=== PATIENT | male | born 1965 | race Caucasian/White ===

== ENCOUNTER 2016-05-16 16:33 | Emergency (ER) | payer OTHER ==
[~2016-05-16 16:33] MED LIST: ACET-1175 PO; ACET650S11 PR; BISA10SU3 PR; CALCTAB7 PO; CHOL100027 PO; CLC100X PO; CLON0.5T3 PO; DIASTAT ACUDIAL PR; ENOX40IN SQ; FBR PO; FLUO40CA8 PO; HYDR-5688 PO; LAMO200T PO; LORA-741 PO; MOML PO; MORP1SOL PO; MULTTAB58 PO; NSS IV.; OMEP20CA59 PO; PBUNK PO; POLY335040 PO; PRNJ PO; SENN-65 PO; SODIUM FLORIDE PO; SORBITOL 70% PO; SRQ/100 PO; SRQ/200 PO; ZONI100C39 PO; [UNRECOGNIZED DRUG - CODE] PO
[2016-05-16 16:36] VITALS: TEMP 36.8
[2016-05-16] MEDS ORDERED: MULT-411 PO (16:59)
[2016-05-16] MEDS ORDERED: POLY1POW2 PO (17:02)
[2016-05-16] MEDS ORDERED: SORB70SO6 PO (17:04)
[2016-05-16] MEDS ORDERED: DOCU100C PO (17:06)
[2016-05-16] MEDS ORDERED: CALC600T9 PO (17:12)
[2016-05-16] MEDS ORDERED: FIBER PO (17:12)
[2016-05-16] MEDS ORDERED: PHEN64.8 PO (17:17)
[2016-05-16] MEDS ORDERED: SENN8.6T15 PO (17:17)
[2016-05-16] MEDS ORDERED: LACO100T PO (17:20)
[2016-05-16] MEDS ORDERED: CHOL1000 PO (17:20)
[2016-05-16] MEDS ORDERED: SKINCRE TOP (17:24)
[2016-05-16] MEDS ORDERED: KETO2SHA TOP (17:24)
[2016-05-16] MEDS ORDERED: DIAZ10GE RE (17:33)
[2016-05-16] MEDS ORDERED: BCTROWC TOP (17:33)
[2016-05-16] MEDS ORDERED: POLY99.0 OPB (17:33)
--- NOTE | 2016-05-16 17:54 | DIAGNOSTIC IMAGING REPORT ---
LEFT SHOULDER 3 VIEWS CLINICAL HISTORY: Fall with left shoulder pain. FINDINGS: 3 portable views of the left shoulder are compared to study dated 05/11/2006. Correlation is made with chest x-ray dated 09/07/2013. The skeletal structures are osteopenic. There is chronic posterior matter deformity through the mid to distal third of the left clavicle. There is also an acute and only minimally distracted fracture seen involving the distal clavicle. No additional fracture is seen. The acromioclavicular joint appears preserved. The glenohumeral articulation is maintained. Overlying soft tissue edema is noted. The imaged left lung parenchyma appears clear. There are healed left-sided rib fractures which were also seen on the 2013 chest x-ray. IMPRESSION: 1. There is an acute and only minimally distracted fracture involving the very distal left clavicle with overlying soft tissue edema. 2. No additional fracture is identified in the shoulder dislocation is seen. 3. Osteopenia with chronic posttraumatic deformity involving the mid to distal third of the clavicle. Electronically signed by: Emmanuel Brewer M.D. 05/16/2016 5:53 PM Dictated Date/Time: 05/16/2016 5:50 PM
--- NOTE | 2016-05-16 18:34 | EMERGENCY ROOM VISIT NOTE ---
History Report prepared by Campbell: Abdias Edwards Under the Supervision of: Dr. Rob Valero M.D. First contact with patient: 16:46 Chief Complaint: SHOULDER PAIN Stated Complaint: 'TENDER' L SHOULDER, SENT BY PCP, History of Present Illness The patient is a 50 year old male who presents to the Emergency Room with complaints of persistent left shoulder pain starting yesterday. The patient rolled and fell out of bed last night. He has a bruise on the left shoulder from the fall. The shoulder was at baseline prior to the fall. He has been favoring the left shoulder since yesterday. The patient did not have any seizure -like activity. His last seizure was 4 days ago. Besides the shoulder pain, the patient has been at baseline otherwise. He has not had any fevers, chills, or any other complaints. HPI was obtained as per caregiver. Source of History: caregiver Onset: yesterday Position: shoulder (left) Timing: other (persistent) Associated Symptoms: No chills, No fevers Review of Systems Due to the patient's baseline medical problems unable to get a full review of his symptoms. 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 Social History Smoking Status: Never Smoker Marital Status: single Housing Status: assisted living Occupation Status: disabled Current/Historical Medications Scheduled Calcium Carbonate-Vitamin D (Calcium + D), 1 TAB PO BID Cholecalciferol (Vitamin D3), 1,000 INTER.UNIT PO BID Clonazepam (Klonopin), 0.25 MG PO HS Docusate Sodium (Stool Softener), 200 MG PO HS Fiber Laxative (Fiber Laxative), 1,000 MG PO BID Fluoxetine Hcl (Prozac), 40 MG PO QAM Ketoconazole (Topical) (Ketoconazole), 1 APPLN TOP 2XWK Lacosamide (Vimpat), 100 MG PO BID Lamotrigine (Lamictal), 400 MG PO BID Lorazepam (Ativan), 0.5 MG PO TID Multiple Vitamin (Daily Richi), 1 TAB PO QAM Omeprazole (Prilosec), 20 MG PO QAM Phenobarbital (Phenobarbital), 64.8 MG PO BID Polyethylene Glycol 3350 (Bulk (Polyethylene Glycol 3350), 17 GM PO DAILY Sennosides-Docusate Sodium (Sennalax-S), 2 TABS PO BID Skin Protectants, Misc. (Hydrocerin), 1 APPLN TOP BID Sorbitol (Laxative) (Sorbitol), 20 ML PO DAILY Zonisamide (Zonegran), 300 MG PO HS Scheduled PRN Diazepam (Anticonvulsant) (Diazepam), 5 MG RE UD PRN for Seizure Mupirocin (Bactroban 2% Oint), 1 APPLN TOP BID PRN for Skin Irritation Polyvinyl Alcohol (Artificial Tears), 1 DROP OPB Q6H PRN for Dry/Red Eye(s) Allergies Coded Allergies: Acyclovir (Verified Allergy, Unknown, 02/04/12) Benztropine (Verified Allergy, Unknown, 02/04/12) Cephalosporins (Verified Allergy, Unknown, CEPHALEXIN, 02/04/12) Erythromycin (Verified Allergy, Unknown, 02/04/12) Neomycin (Verified Allergy, Unknown, unknown, 09/07/13) Physical Exam Vital Signs Date Time Temp Pulse Resp B/P Pulse Ox O2 Delivery O2 Flow Rate FiO2 05/16/16 16:36 36.8 72 20 99/58 97 Room Air Physical Exam General: Chronically ill appearing middle aged male. HEENT: Normal cephalic atraumatic. Pupils are equal round and reactive to light. Extraocular movements are intact. Oropharynx is pink with moist mucous membranes. No swelling of the mouth lips or tongue. Neck: Supple with a midline trachea. No meningeal signs or stiffness, no JVD or bruits. No Stridor. Chest: Clear to auscultation bilaterally. No wheezes or rhonchi. No increased work of breathing. Heart: regular rate and rhythm. Abdomen: Soft nontender, nondistended without rebound guarding or rigidity. Extremities: Left shoulder has a bruise but appears to have full range of motion. No clinical suggestion of a dislocation. 2+ distal pulses of upper extremities. Spine/Back. Non tender to palpation. No CVA tenderness Skin: Good turgor without rashes. Neurologic exam: Baseline normal. Medical Decision & Procedures ER Provider Diagnostic Interpretation: X-ray results as stated below per interpretation by me and the radiologist: LEFT SHOULDER 3 VIEWS CLINICAL HISTORY: Fall with left shoulder pain. FINDINGS: 3 portable views of the left shoulder are compared to study dated 05/11/2006. Correlation is made with chest x-ray dated 09/07/2013. The skeletal structures are osteopenic. There is chronic posterior matter deformity through the mid to distal third of the left clavicle. There is also an acute and only minimally distracted fracture seen involving the distal clavicle. No additional fracture is seen. The acromioclavicular joint appears preserved. The glenohumeral articulation is maintained. Overlying soft tissue edema is noted. The imaged left lung parenchyma appears clear. There are healed left-sided rib fractures which were also seen on the 2013 chest x-ray. IMPRESSION: 1. There is an acute and only minimally distracted fracture involving the very distal left clavicle with overlying soft tissue edema. 2. No additional fracture is identified in the shoulder dislocation is seen. 3. Osteopenia with chronic posttraumatic deformity involving the mid to distal third of the clavicle. Electronically signed by: Emmanuel Brewer M.D. 05/16/2016 5:53 PM Dictated Date/Time: 05/16/2016 5:50 PM ED Course 1646: Past medical records reviewed. The patient was evaluated in room B03B, and a complete history and physical examination were performed. 1818: Upon reevaluation, the patient is resting comfortably. I discussed the results and treatment plan with the patient's caregiver. He verbalized agreement of the treatment plan. The patient was discharged home. Medical Decision Differential diagnosis includes but is not limited to fracture, dislocation, contusion, AC separation. This patient comes in as described above. He suffered mechanical fall he does have a history of seizures but did not have a seizure and he is well except for has a bruise on his shoulder. He's been favoring the other shoulder. I did get an x-ray and he does have a nondisplaced clavicle fracture. I will have them use sling if tolerated and he can use [id number] ibuprofen and/or Tylenol if needed but do not exceed the [id number] recommended dosages, ice intermittently and follow-up with his regular doctor this week for recheck. He may ultimately need to see orthopedist if symptoms do not get better or have he has any further problems. The caregiver was happy with the plan and [facility]. Impression Primary Impression: Fracture of left clavicle Scribe Attestation The scribe's documentation has been prepared under my direction and personally reviewed by me in its entirety. I confirm that the note above accurately reflects all work, treatment, procedures, and medical decision making performed by me. Departure Information Dispostion Being Evaluated By Hospitalist Referrals Soila Morales D.O. (PCP) Patient Instructions My [facility] [address]
[2016-05-16 18:48] VITALS: BP 105/65; PULSE 76; O2SAT 96
== END 2016-05-16 18:35 | disposition home or self-care (01) ==
LOC: C.EDB 16:35
DX: S42.002A Fracture of unspecified part of left clavicle, initial encounter for closed fracture (principal); W06.XXXA Fall from bed, initial encounter; G40.909 Epilepsy, unspecified, not intractable, without status epilepticus; D64.9 Anemia, unspecified; F41.9 Anxiety disorder, unspecified; K21.9 Gastro-esophageal reflux disease without esophagitis; Z85.47 Personal history of malignant neoplasm of testis; E03.9 Hypothyroidism, unspecified; F71 Moderate intellectual disabilities; E55.9 Vitamin D deficiency, unspecified; Z79.899 Other long term (current) drug therapy

== ENCOUNTER 2016-10-25 15:41 | Emergency (ER) | payer OTHER ==
[~2016-10-25 15:41] MED LIST changes: -ACET-1175 PO; -ACET650S11 PR; +BCTROWC TOP; -BISA10SU3 PR; +CALC600T9 PO; -CALCTAB7 PO; +CHOL1000 PO; -CHOL100027 PO; -CLC100X PO; -DIASTAT ACUDIAL PR; +DIAZ10GE RE; +DOCU100C PO; -ENOX40IN SQ; -FBR PO; +FIBER PO; -HYDR-5688 PO; +KETO2SHA TOP; +LACO100T PO; -MOML PO; -MORP1SOL PO; +MULT-411 PO; -MULTTAB58 PO; -NSS IV.; -PBUNK PO; +PHEN64.8 PO; +POLY1POW2 PO; -POLY335040 PO; +POLY99.0 OPB; -PRNJ PO; -SENN-65 PO; +SENN8.6T15 PO; +SKINCRE TOP; -SODIUM FLORIDE PO; +SORB70SO6 PO; -SORBITOL 70% PO; -SRQ/100 PO; -SRQ/200 PO; -[UNRECOGNIZED DRUG - CODE] PO
[2016-10-25 16:02] VITALS: TEMP 36.5
[2016-10-25] MEDS ORDERED: SODIUM CHLORIDE 0.9% 1000ML 1,000 ML IV STA (16:20)
[2016-10-25] MEDS ORDERED: SODIUM CHLORIDE 0.9% 1000ML 500 ML IV STA (16:20)
--- NOTE | 2016-10-25 16:52 | DIAGNOSTIC IMAGING REPORT ---
CHEST ONE VIEW PORTABLE CLINICAL HISTORY: Altered mental status. Weakness. COMPARISON STUDY: Chest radiograph September 10, 2013. FINDINGS: Note is made of S-shaped scoliosis of the thoracolumbar spine. There is no pneumothorax or pleural effusion. There are old bilateral rib fractures. There is no consolidation to suggest pneumonia. Cardiomegaly is unchanged. There is no evidence of pulmonary edema. IMPRESSION: No acute cardiopulmonary findings. No change in appearance of the chest. Electronically signed by: Truong Romo M.D. 10/25/2016 4:51 PM Dictated Date/Time: 10/25/2016 4:48 PM
--- NOTE | 2016-10-25 16:55 | EMERGENCY ROOM VISIT NOTE ---
History Report prepared by Campbell: Abdias Edwards Under the Supervision of: Dr. Emmanuel Teague M.D. First contact with patient: 16:14 Chief Complaint: OTHER COMPLAINT Stated Complaint: TREMORS, BLANK STARES, IN AND OUT OF ALERTNESS History of Present Illness The patient is a 51 year old male who presents to the Emergency Room from [facility] with complaints of an episode of trembling and shakiness occurring about 8 hours ago. The caregivers were getting him ready to go to [facility] today when he became lethargic and started having shakiness of his hands. His head slumped to the side and he started having drooling. The patient was laid down on the bed and he started having a blank stare with his mouth trembling. He did not seem like himself. The patient has a history of seizures with his most recent one occurring 3 days ago. He was at baseline afterwards. His normal seizures involve the entire body. His symptoms today were not similar to his normal symptoms related to his seizures. He is on phenobarbital. His caregiver is unsure of when his phenobarbital level was checked. The patient has had a normal appetite and a normal fluid intake. He did not have any recent falls/head injuries, ill contacts, fevers, cough, or any other complaints. He has a history of MR. HPI is obtained as per caregiver. Source of History: caregiver Onset: about 8 hours ago Position: other (global) Quality: other (trembling, shakiness) Associated Symptoms: No fevers, No cough Review of Systems See HPI for pertinent positives & negatives. A total of 10 systems reviewed and were otherwise negative. As per caregiver. 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 Social History Smoking Status: Never Smoker Marital Status: single Housing Status: assisted living Occupation Status: disabled Current/Historical Medications Scheduled Calcium Carbonate-Vitamin D (Calcium + D), 1 TAB PO BID Calcium Polycarbophil (Fiber-Lax), 1 TAB PO QAM Calcium Polycarbophil (Fiber-Lax), 2 TABS PO DAILY AT 1600 Cholecalciferol (Vitamin D3), 1,000 INTER.UNIT PO BID Clonazepam (Klonopin), 0.25 MG PO HS Docusate Sodium (Stool Softener), 200 MG PO HS Fluoxetine Hcl (Prozac), 40 MG PO QAM Ketoconazole (Topical) (Ketoconazole), 1 APPLN TOP 2XWK Lacosamide (Vimpat), 100 MG PO BID Lamotrigine (Lamictal), 400 MG PO BID Lorazepam (Ativan), 0.5 MG PO TID Multiple Vitamin (Daily Richi), 1 TAB PO QAM Omeprazole (Prilosec), 20 MG PO QAM Phenobarbital (Phenobarbital), 64.8 MG PO BID Polyethylene Glycol 3350 (Bulk (Polyethylene Glycol 3350), 17 GM PO DAILY Sennosides-Docusate Sodium (Sennalax-S), 2 TABS PO BID Skin Protectants, Misc. (Hydrocerin), 1 APPLN TOP BID Sorbitol (Laxative) (Sorbitol), 20 ML PO DAILY Zonisamide (Zonegran), 300 MG PO HS Scheduled PRN Diazepam (Anticonvulsant) (Diazepam), 5 MG RE UD PRN for Seizure Mupirocin (Bactroban 2% Oint), 1 APPLN TOP BID PRN for Skin Irritation Polyvinyl Alcohol (Artificial Tears), 1 DROP OPB Q6H PRN for Dry/Red Eye(s) Allergies Coded Allergies: Acyclovir (Verified Allergy, Unknown, 10/25/16) Benztropine (Verified Allergy, Unknown, 10/25/16) Cephalosporins (Verified Allergy, Unknown, CEPHALEXIN, 10/25/16) Erythromycin (Verified Allergy, Unknown, 10/25/16) Neomycin (Verified Allergy, Unknown, unknown, 10/25/16) Physical Exam Vital Signs Date Time Temp Pulse Resp B/P (MAP) Pulse Ox O2 Delivery O2 Flow Rate FiO2 10/25/16 18:22 54 16 110/57 98 Room Air 10/25/16 17:36 51 10/25/16 17:23 55 20 97/56 99 Room Air 10/25/16 16:02 36.5 60 20 106/51 96 Room Air 10/25/16 15:55 36.5 60 20 106/51 96 Room Air Physical Exam GENERAL: Patient is in no acute distress. HEENT: No acute trauma, normocephalic atraumatic, mucous membranes moist, no nasal congestion, no scleral icterus. Some wax in the ear canals more so on the left, no evidence for otitis media. NECK: No stridor, no adenopathy, no meningismus, trachea is midline. LUNGS: Clear to auscultation bilaterally, no wheeze, no rhonchi, breath sounds equal. HEART: Without murmurs gallops or rubs, regular rate and rhythm. ABDOMEN: Soft, nontender, bowel sounds positive, no hernias, no peritonitis. EXTREMITIES: No cyanosis or edema, full range of motion of all the joints without pain or difficulty, no signs for acute trauma. NEUROLOGIC: MR noted, moving all extremities, awake and alert. SKIN: No rash, no jaundice, no diaphoresis. Medical Decision & Procedures ER Provider Diagnostic Interpretation: X-ray results as stated below per interpretation by me and the radiologist: CHEST ONE VIEW PORTABLE CLINICAL HISTORY: Altered mental status. Weakness. COMPARISON STUDY: Chest radiograph September 10, 2013. FINDINGS: Note is made of S-shaped scoliosis of the thoracolumbar spine. There is no pneumothorax or pleural effusion. There are old bilateral rib fractures. There is no consolidation to suggest pneumonia. Cardiomegaly is unchanged. There is no evidence of pulmonary edema. IMPRESSION: No acute cardiopulmonary findings. No change in appearance of the chest. Electronically signed by: Truong Romo M.D. 10/25/2016 4:51 PM Dictated Date/Time: 10/25/2016 4:[address] results as stated below per my review and radiologist interpretation: CT OF THE HEAD WITHOUT CONTRAST CLINICAL HISTORY: Altered mental status. Weakness. COMPARISON STUDY: Head CT April 28, 2012. CT DOSE: 1074.96 mGy.cm TECHNIQUE: Helical axial images of the head were obtained without IV contrast. Automated exposure control was utilized for the study. FINDINGS: No acute intracranial hemorrhage, midline shift or mass effect is present. Ventricular system is stable. Basilar cisterns are patent. There are no extra-axial collections. This exam is mildly compromised by motion artifact. Encephalomalacia within the anterior left frontal lobe is unchanged. Cerebellar atrophy is again noted. There are no significant calvarial abnormalities. Visualized portions of the sinuses and mastoid air cells are clear. There are no CT findings to suggest acute dural sinus thrombosis or acute territorial infarct. IMPRESSION: No acute intracranial findings. No significant change since previous CT of April 28, 2012. Electronically signed by: Truong Romo M.D. 10/25/2016 5:46 PM Dictated Date/Time: 10/25/2016 5:43 PM Laboratory Results 10/25/16 16:45 Red Blood Count 4.26, Mean Corpuscular Volume 90.8, Mean Corpuscular Hemoglobin 30.3, Mean Corpuscular Hemoglobin Concent 33.3, Mean Platelet Volume 10.9, Neutrophils (%) (Auto) 39.9, Lymphocytes (%) (Auto) 47.7, Monocytes (%) (Auto) 7.9, Eosinophils (%) (Auto) 4.1, Basophils (%) (Auto) 0.4, Neutrophils # (Auto) 1.92, Lymphocytes # (Auto) 2.30, Monocytes # (Auto) 0.38, Eosinophils # (Auto) 0.20, Basophils # (Auto) 0.02 10/25/16 16:45 Test 10/25/16 16:45 10/25/16 16:50 White Blood Count 4.82 K/uL (4.8-10.8) Red Blood Count 4.26 M/uL (4.7-6.1) Hemoglobin 12.9 g/dL (14.0-18.0) Hematocrit 38.7 % (42-52) Mean Corpuscular Volume 90.8 fL (80-100) Mean Corpuscular Hemoglobin 30.3 pg (25-34) Mean Corpuscular Hemoglobin Concent 33.3 g/dl (32-36) Platelet Count 216 K/uL (130-400) Mean Platelet Volume 10.9 fL (7.4-10.4) Neutrophils (%) (Auto) 39.9 % Lymphocytes (%) (Auto) 47.7 % Monocytes (%) (Auto) 7.9 % Eosinophils (%) (Auto) 4.1 % Basophils (%) (Auto) 0.4 % Neutrophils # (Auto) 1.92 K/uL (1.4-6.5) Lymphocytes # (Auto) 2.30 K/uL (1.2-3.4) Monocytes # (Auto) 0.38 K/uL (0.11-0.59) Eosinophils # (Auto) 0.20 K/uL (0-0.5) Basophils # (Auto) 0.02 K/uL (0-0.2) RDW Standard Deviation 43.5 fL (36.4-46.3) RDW Coefficient of Variation 13.1 % (11.5-14.5) Immature Granulocyte % (Auto) 0.0 % Immature Granulocyte # (Auto) 0.00 K/uL (0.00-0.02) Anion Gap 10.0 mmol/L (3-11) Estimated GFR () 126.1 Estimated GFR (Non- 108.8 BUN/Creatinine Ratio 21.0 (10-20) Calcium Level 8.9 mg/dl (8.5-10.1) Total Bilirubin 0.3 mg/dl (0.2-1) Aspartate Amino Transf (AST/SGOT) 14 U/L (15-37) Alanine Aminotransferase (ALT/SGPT) 19 U/L (12-78) Alkaline Phosphatase 166 U/L (45-117) Troponin I < 0.015 ng/ml (0-0.045) Total Protein 6.3 gm/dl (6.4-8.2) Albumin 3.3 gm/dl (3.4-5.0) Globulin 3.0 gm/dl (2.5-4.0) Albumin/Globulin Ratio 1.1 (0.9-2) Thyroid Stimulating Hormone (TSH) 2.450 uIu/ml (0.300-4.500) Chemistry Specimen Hemolysis Phenobarbital Level 48.2 mcg/mL (15.0-40.0) Urine Color DK YELLOW Urine Appearance CLEAR (CLEAR) Urine pH 7.0 (4.5-7.5) Urine Specific [place] 1.023 (1.000-1.030) Urine Protein NEG (NEG) Urine Glucose (UA) NEG (NEG) Urine Ketones NEG (NEG) Urine Occult Blood NEG (NEG) Urine Nitrite NEG (NEG) Urine Bilirubin NEG (NEG) Urine Urobilinogen NEG (NEG) Urine Leukocyte Esterase NEG (NEG) Laboratory results reviewed by me. Medications Administered Medications (Trade) Dose Ordered Sig/Porsha Route Start Time Stop Time Status Last Admin Dose Admin Sodium Chloride 500 ml @ 999 mls/hr Q31M STAT IV 10/25/16 16:20 10/25/16 16:50 DC 10/25/16 16:20 999 MLS/HR Sodium Chloride 1,000 ml @ 200 mls/hr Q5H STAT IV 10/25/16 16:20 10/25/16 18:55 DC 10/25/16 16:20 200 MLS/HR ECG Indication: altered mental status Rate (beats per minute): 55 Rhythm: sinus bradycardia Findings: no acute ischemic change, no ectopy, other (Artifact present) ED Course 1614: The patient was evaluated in room B04B. A complete history and physical exam was performed. 1620: Sodium Chloride 1000 ml @ 200 mls/hr IV, Sodium Chloride 500 ml @ 999 mls/ hr IV 180: I discussed the patient's case with Dr. Mancera, neurologist with [facility]. He recommended holding Phenobarbital dose until tomorrow night. He recommended decreasing his phenobarbital dosing regimen. 1812: Reevaluated the patient. Discussed results and discharge instructions: the patient's caregiver verbalized understanding and agreement. The patient is ready for discharge. Medical Decision Medication Reconciliation: I attest that I have personally reviewed the patient' s current medication list. Blood Pressure Screening: Patient was found to have normal blood pressure on screening and does not require follow-up. Differential diagnosis includes but is not limited to toxic phenobarbital level , intracranial bleed/stroke, dehydration, electrolyte imbalance, UTI, infection , seizure. There is no leukocytosis or concerning anemia. No significant electrolyte abnormality, kidney failure or hepatitis. The patient appears to be in a euthyroid state. EKG shows a sinus bradycardia, no acute ischemia. Cardiac enzyme testing 1 is not consistent with acute cardiac injury. Brain CT shows no acute bleed or mass effect. Chest x-ray does not show pneumonia or CHF. Phenobarbital level was toxic. Urinalysis does not show infection. On exam, the patient was not febrile. He was awake and seemed to be at his mental baseline as per his caregiver The patient was given IV saline, he has done well here in the emergency room. I discussed his case with the on-call neurologist. The patient's phenobarbital dosing will be held until tomorrow night and then his dosing will be decreased to a half tablet in the morning and a full tablet at night. He had been on one full tablet twice a day. The patient will follow with neurology and return here for worsening symptoms. His subtle mental status change is likely from the high phenobarbital level. Consults Time Called: 1804 Consulting Physician: Dr. Mancera, neurologist with [facility] Returned Call: 1808 I discussed the patient's case with Dr. Mancera, neurologist with [facility]. He recommended holding Phenobarbital dose until tomorrow night. He recommended decreasing his phenobarbital dosing regimen. Impression Primary Impression: Change in mental status Additional Impression: Phenobarbital toxicity Scribe Attestation The scribe's documentation has been prepared under my direction and personally reviewed by me in its entirety. I confirm that the note above accurately reflects all work, treatment, procedures, and medical decision making performed by me. Departure Information Dispostion Home / Self-Care Referrals Soila Morales D.O. (PCP) Forms HOME CARE DOCUMENTATION FORM, IMPORTANT VISIT INFORMATION, WORK / SCHOOL INSTRUCTIONS Patient Instructions My [facility] Additional Instructions Hold phenobarbital dosing until evening--give 64.8 mg tab that evening On sunday morning start the new regimen of 1/2 tab in the am and full tab (64.8 mg) in the pm follow with neurology for a recheck return for worsening symptoms Problem Qualifiers
[2016-10-25] MEDS ORDERED: CALC625T8 PO ×2 (17:01)
[2016-10-25 17:10] LABS: BASO % 0.4 %; BASO ABS # 0.02 K/uL (0-0.2); COMPLETE YES; EOS % 4.1 %; HEMATOCRIT 38.7 % (42-52); LYMPH % 47.7 %; MEAN CELL VOLUME 90.8 fL (80-100); MEAN CORPUSCULAR HEMOGLOBIN 30.3 pg (25-34); MEAN CORPUSCULAR HGB CONC 33.3 g/dl (32-36); MEAN PLATELET VOLUME 10.9 fL (7.4-10.4); MONO % 7.9 %; NEUT % 39.9 %; PLATELET COUNT 216 K/uL (130-400); RED BLOOD COUNT 4.26 M/uL (4.7-6.1); WHITE BLOOD COUNT 4.82 K/uL (4.8-10.8)
[2016-10-25 17:12] LABS: URINE APPEARANCE CLEAR (CLEAR); URINE BILIRUBIN NEG (NEG); URINE COLOR DK YELLOW; URINE NITRITE NEG (NEG); URINE SPECIFIC GRAVITY 1.023 (1.000-1.030); UROBILINOGEN NEG (NEG); ZZURINE CULT IF INDIC CATH NO
[2016-10-25 17:13] LABS: MANUAL MICROSCOPIC REQUIRED? NO; REVIEW REQ? NO
[2016-10-25 17:42] LABS: ALB/GLOB RATIO 1.1 (0.9-2); ALKALINE PHOSPHATASE 166 U/L (45-117); ALT/SGPT 19 U/L (12-78); BLOOD UREA NITROGEN 15 mg/dl (7-18); CALCIUM 8.9 mg/dl (8.5-10.1); CARBON DIOXIDE 26 mmol/L (21-32); CHLORIDE 105 mmol/L (98-107); CREATININE 0.72 mg/dl (0.60-1.40); GLUCOSE 82 mg/dl (70-99)
[2016-10-25 17:48] LABS: POTASSIUM 4.3 mmol/L (3.5-5.1); SODIUM 141 mmol/L (136-145)
--- NOTE | 2016-10-25 17:48 | DIAGNOSTIC IMAGING REPORT ---
CT OF THE HEAD WITHOUT CONTRAST CLINICAL HISTORY: Altered mental status. Weakness. COMPARISON STUDY: Head CT April 28, 2012. CT DOSE: 1074.96 mGy.cm TECHNIQUE: Helical axial images of the head were obtained without IV contrast. Automated exposure control was utilized for the study. FINDINGS: No acute intracranial hemorrhage, midline shift or mass effect is present. Ventricular system is stable. Basilar cisterns are patent. There are no extra-axial collections. This exam is mildly compromised by motion artifact. Encephalomalacia within the anterior left frontal lobe is unchanged. Cerebellar atrophy is again noted. There are no significant calvarial abnormalities. Visualized portions of the sinuses and mastoid air cells are clear. There are no CT findings to suggest acute dural sinus thrombosis or acute territorial infarct. IMPRESSION: No acute intracranial findings. No significant change since previous CT of April 28, 2012. Electronically signed by: Truong Romo M.D. 10/25/2016 5:46 PM Dictated Date/Time: 10/25/2016 5:43 PM
[2016-10-25 17:56] LABS: AST/SGOT 14 U/L (15-37)
[2016-10-25 18:22] VITALS: BP 110/57; PULSE 54; O2SAT 98
== END 2016-10-25 18:34 | disposition home or self-care (01) ==
LOC: C.EDB 15:45
DX: R41.82 Altered mental status, unspecified (principal); T42.3X1A Poisoning by barbiturates, accidental (unintentional), initial encounter; X58.XXXA Exposure to other specified factors, initial encounter; F71 Moderate intellectual disabilities; D64.9 Anemia, unspecified; F41.9 Anxiety disorder, unspecified; G80.9 Cerebral palsy, unspecified; K21.9 Gastro-esophageal reflux disease without esophagitis; E03.9 Hypothyroidism, unspecified; R56.9 Unspecified convulsions; E55.9 Vitamin D deficiency, unspecified; Z79.899 Other long term (current) drug therapy

== ENCOUNTER 2017-04-03 14:41 | Emergency (ER) | payer OTHER ==
[~2017-04-03 14:41] MED LIST changes: +CALC625T8 PO; -FIBER PO; +SENN1TAB86 PO; -SENN8.6T15 PO
[2017-04-03 14:44] VITALS: TEMP 36.9
[2017-04-03 15:03] VITALS: O2SAT 97
--- NOTE | 2017-04-03 15:10 | EMERGENCY ROOM VISIT NOTE ---
History Report prepared by Campbell: Gurinder Perdue Under the Supervision of: Dr. Rob Valero M.D. First contact with patient: 14:58 Chief Complaint: SEIZURE Stated Complaint: INCREASED SEIZURE ACTIVITY History of Present Illness The patient is a 51 year old male who presents to the Emergency Room with increased seizure activity that began about two weeks ago. 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 He has a past medical history of a seizure disorder. A couple weeks ago, the patient began to have increased seizure activity. However, he has been having one or two seizures a day for the past couple of days. He is currently on Phenobarbital, Vimpat, and Lamictal. His Vimpat was increased recently, but his seizures still persist. His seizures last about a minute. When he has a seizure, he becomes very stiff and shakes globally. Afterward, he becomes very lethargic. The patient's Neurologist, Dr. Mancera, wanted him to be evaluated at the ER to rule out possible infectious sources. They deny at trauma, injury, fevers, vomiting, diarrhea, or any other abnormal symptoms. Source of History: other ([place]) Onset: about two weeks ago Position: other (Global) Symptom Intensity: Multiple Quality: other (Seizures) Timing: intermittent Associated Symptoms: No fevers, No vomiting, No diarrhea Note: After he has a seizure, he becomes very lethargic. They deny any trauma or injury. Review of Systems See HPI for pertinent positives & negatives. A total of 10 systems reviewed and were otherwise negative. 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 Nurse's notes were reviewed and I agree with. Family History Patient reports no known family medical history. Social History Smoking Status: Never Smoker Alcohol Use: none Drug Use: none Marital Status: single Housing Status: assisted living Occupation Status: disabled Current/Historical Medications Scheduled Calcium Carbonate-Vitamin D (Calcium + D), 1 TAB PO BID Calcium Polycarbophil (Fiber-Lax), 1 TAB PO QAM Calcium Polycarbophil (Fiber-Lax), 2 TABS PO DAILY AT 1600 Cholecalciferol (Vitamin D3), 1,000 INTER.UNIT PO BID Clonazepam (Klonopin), 0.25 MG PO HS Docusate Sodium (Stool Softener), 200 MG PO HS Fluoxetine Hcl (Prozac), 40 MG PO QAM Fluticasone Propionate (Nasal) (Allergy Nasal [place] 24 Ho), 2 SPRAYS NA DAILY Lacosamide (Vimpat), 100 MG PO BID Lacosamide (Vimpat), 50 MG PO BID Lamotrigine (Lamictal), 400 MG PO BID Lorazepam (Ativan), 0.5 MG PO TID Multiple Vitamin (Daily Richi), 1 TAB PO QAM Omeprazole (Prilosec), 20 MG PO QAM Phenobarbital (Phenobarbital), 64.8 MG PO BID Polyethylene Glycol 3350 (Bulk (Polyethylene Glycol 3350), 17 GM PO DAILY Sennosides-Docusate Sodium (Sennalax-S), 2 TABS PO BID Sorbitol (Laxative) (Sorbitol), 20 ML PO DAILY Zonisamide (Zonegran), 300 MG PO HS Allergies Coded Allergies: Acyclovir (Verified Allergy, Unknown, 04/03/17) Benztropine (Verified Allergy, Unknown, 04/03/17) Cephalosporins (Verified Allergy, Unknown, CEPHALEXIN, 04/03/17) Erythromycin (Verified Allergy, Unknown, 04/03/17) Neomycin (Verified Allergy, Unknown, unknown, 04/03/17) Physical Exam Vital Signs Date Time Temp Pulse Resp B/P (MAP) Pulse Ox O2 Delivery O2 Flow Rate FiO2 04/03/17 16:30 51 04/03/17 16:30 51 94/46 96 Room Air 04/03/17 16:00 59 17 98/47 97 Room Air 04/03/17 15:33 65 13 101/52 96 Room Air 04/03/17 15:06 75 15 94/38 95 Room Air 04/03/17 15:03 97 Room Air 04/03/17 14:44 36.9 71 20 95/47 96 Room Air Physical Exam General: Non-ill appearing middle-aged male in no acute distress. The patient's mental status is at baseline per medical records supervisor and past history. His eyes are open and follows commands. HEENT: Normal cephalic atraumatic. Pupils are equal round and reactive to light. Extraocular movements are intact. Oropharynx is pink with moist mucous membranes. No swelling of the mouth lips or tongue. Neck: Supple with a midline trachea. No meningeal signs or stiffness, no JVD or bruits. No Stridor. Chest: Clear to auscultation bilaterally. No wheezes or rhonchi. No increased work of breathing. Heart: regular rate and rhythm. Abdomen: Soft nontender, nondistended without rebound guarding or rigidity. Extremities: No cyanosis clubbing or edema. No calf tenderness or assymetry Spine/Back. Non tender to palpation. No CVA tenderness Skin: Good turgor without rashes. Neurologic exam: Baseline weakness of the legs bilaterally. Otherwise nonfocal neurological exam. Medical Decision & Procedures ER Provider Diagnostic Interpretation: Radiology results as stated below per my review and radiologist interpretation: CHEST ONE VIEW PORTABLE CLINICAL HISTORY: 51 years-old Male presenting with CHEST PAIN. TECHNIQUE: Portable semiupright AP view of the chest was obtained. COMPARISON: 10/25/2016. FINDINGS: Cardiac silhouette top normal in size. Lungs and pleural spaces clear. Scoliotic curvature of the thoracic spine. Deformity of posterior right fourth rib may suggest prior fracture. Similar deformity noted on the left. Upper abdomen normal. IMPRESSION: 1. No acute cardiopulmonary disease. Electronically signed by: Shane Mcdaniel M.D. 04/03/2017 4:06 PM Dictated Date/Time: 04/03/2017 4:05 PM Laboratory Results 04/03/17 15:29 Red Blood Count 4.32, Mean Corpuscular Volume 93.5, Mean Corpuscular Hemoglobin 31.7, Mean Corpuscular Hemoglobin Concent 33.9, Mean Platelet Volume 10.5, Neutrophils (%) (Auto) 50.3, Lymphocytes (%) (Auto) 37.8, Monocytes (%) (Auto) 7.5, Eosinophils (%) (Auto) 3.6, Basophils (%) (Auto) 0.5, Neutrophils # (Auto) 1.94, Lymphocytes # (Auto) 1.46, Monocytes # (Auto) 0.29, Eosinophils # (Auto) 0.14, Basophils # (Auto) 0.02 04/03/17 15:29 Test 04/03/17 15:29 White Blood Count 3.86 K/uL (4.8-10.8) Red Blood Count 4.32 M/uL (4.7-6.1) Hemoglobin 13.7 g/dL (14.0-18.0) Hematocrit 40.4 % (42-52) Mean Corpuscular Volume 93.5 fL (80-100) Mean Corpuscular Hemoglobin 31.7 pg (25-34) Mean Corpuscular Hemoglobin Concent 33.9 g/dl (32-36) Platelet Count 195 K/uL (130-400) Mean Platelet Volume 10.5 fL (7.4-10.4) Neutrophils (%) (Auto) 50.3 % Lymphocytes (%) (Auto) 37.8 % Monocytes (%) (Auto) 7.5 % Eosinophils (%) (Auto) 3.6 % Basophils (%) (Auto) 0.5 % Neutrophils # (Auto) 1.94 K/uL (1.4-6.5) Lymphocytes # (Auto) 1.46 K/uL (1.2-3.4) Monocytes # (Auto) 0.29 K/uL (0.11-0.59) Eosinophils # (Auto) 0.14 K/uL (0-0.5) Basophils # (Auto) 0.02 K/uL (0-0.2) RDW Standard Deviation 45.0 fL (36.4-46.3) RDW Coefficient of Variation 13.1 % (11.5-14.5) Immature Granulocyte % (Auto) 0.3 % Immature Granulocyte # (Auto) 0.01 K/uL (0.00-0.02) Anion Gap 3.0 mmol/L (3-11) Estimated GFR () 126.1 Estimated GFR (Non- 108.8 BUN/Creatinine Ratio 21.0 (10-20) Calcium Level 8.8 mg/dl (8.5-10.1) Total Bilirubin 0.2 mg/dl (0.2-1) Direct Bilirubin < 0.1 mg/dl (0-0.2) Aspartate Amino Transf (AST/SGOT) 11 U/L (15-37) Alanine Aminotransferase (ALT/SGPT) 23 U/L (12-78) Alkaline Phosphatase 129 U/L (45-117) Total Protein 6.6 gm/dl (6.4-8.2) Albumin 3.4 gm/dl (3.4-5.0) Lipase 174 U/L (73-393) Phenobarbital Level 29.4 mcg/mL (15.0-40.0) Laboratory studies as stated above per my review. ECG Indication: other (Seizure) Rate (beats per minute): 73 Rhythm: normal sinus Findings: no acute ischemic change, no ectopy, other (poor baseline) Comparison ECG Date: October 25, 2016 Change: no significant change ED Course 1458: Past medical records reviewed. The patient was evaluated in room A9, and a complete history and physical examination were performed. 1633: Upon reevaluation, the patient is sleeping comfortably. I am waiting to speak with Dr. Mancera of Neurology. 1640: I spoke with Dr. Mancera at this time. He agrees with discharge. 1702: Upon reevaluation, the patient is resting. I discussed the results and treatment plan with his medical records supervisor. She verbalized agreement of the treatment plan. The patient was discharged home. Medical Decision Differentials include, but are not limited to; seizure, infection, and electrolyte or metabolic abnormality. This patient comes in as described above. He was placed in room A9. Here for treatment and evaluation of increasing seizures. I do know him well from multiple previous visits. He does have increase all frequent seizures although it got more frequent lately. They recently increased his Vimpat from 100mg twice a day to 150 mg 2 times a day. He has been acting at his normal baseline otherwise. There's been no trauma or vomiting. He has been eating and there has okay is no other focal complaints. IV access established was placed in seizure precautions and multiple blood testing was obtained. He was reassessed frequently. He remained stable and no seizure-like activity he has no fever elevation of white count or any source to suggest infection. Chest x-ray is unremarkable. He has no acute electrolyte or metabolic abnormalities. His phenobarbital level is therapeutic. I did discuss the case with Dr. Mancera and he feels he can go home. They can continue to follow him on outpatient basis in they can further increase the Vimpat if this pattern continues. I encouraged the patient follow-up with his regular doctor or neurologist Medication Reconcilliation Current Medication List: was personally reviewed by me Blood Pressure Screening Patient's blood pressure: Low blood pressure Consults Time Called: 1633 Consulting Physician: Dr. Mancera - Neurology Returned Call: [phone] We discussed the patient's case. He agrees with discharge. Impression Primary Impression: Seizure Scribe Attestation The scribe's documentation has been prepared under my direction and personally reviewed by me in its entirety. I confirm that the note above accurately reflects all work, treatment, procedures, and medical decision making performed by me. Departure Information Dispostion Home / Self-Care Referrals Suleiman Mancera M.D. (MEDICINE) Forms HOME CARE DOCUMENTATION FORM, IMPORTANT VISIT INFORMATION Patient Instructions My [facility] Additional Instructions Rest. Continue current medications Follow-up with your doctor or neurologist this week for recheck Return if fever, worsening symptoms, injuries, worsening of seizures, any new problems or concerns
[2017-04-03] MEDS ORDERED: FLUT50SP45 (15:11)
[2017-04-03] MEDS ORDERED: LACO50TA PO (15:11)
[2017-04-03 15:45] LABS: BASO % 0.5 %; BASO ABS # 0.02 K/uL (0-0.2); COMPLETE YES; EOS % 3.6 %; HEMATOCRIT 40.4 % (42-52); IG% 0.3 %; LYMPH % 37.8 %; LYMPH ABS # 1.46 K/uL (1.2-3.4); MEAN CELL VOLUME 93.5 fL (80-100); MEAN CORPUSCULAR HEMOGLOBIN 31.7 pg (25-34); MEAN CORPUSCULAR HGB CONC 33.9 g/dl (32-36); MEAN PLATELET VOLUME 10.5 fL (7.4-10.4); MONO % 7.5 %; NEUT % 50.3 %; PLATELET COUNT 195 K/uL (130-400); RED BLOOD COUNT 4.32 M/uL (4.7-6.1); WHITE BLOOD COUNT 3.86 K/uL (4.8-10.8)
--- NOTE | 2017-04-03 16:08 | DIAGNOSTIC IMAGING REPORT ---
CHEST ONE VIEW PORTABLE CLINICAL HISTORY: 51 years-old Male presenting with CHEST PAIN. TECHNIQUE: Portable semiupright AP view of the chest was obtained. COMPARISON: 10/25/2016. FINDINGS: Cardiac silhouette top normal in size. Lungs and pleural spaces clear. Scoliotic curvature of the thoracic spine. Deformity of posterior right fourth rib may suggest prior fracture. Similar deformity noted on the left. Upper abdomen normal. IMPRESSION: 1. No acute cardiopulmonary disease. Electronically signed by: Shane Mcdaniel M.D. 04/03/2017 4:06 PM Dictated Date/Time: 04/03/2017 4:05 PM
[2017-04-03 16:09] LABS: BLOOD UREA NITROGEN 15 mg/dl (7-18); CALCIUM 8.8 mg/dl (8.5-10.1); CARBON DIOXIDE 28 mmol/L (21-32); CHLORIDE 110 mmol/L (98-107); CREATININE 0.72 mg/dl (0.60-1.40); GLUCOSE 72 mg/dl (70-99); POTASSIUM 3.8 mmol/L (3.5-5.1); SODIUM 141 mmol/L (136-145)
[2017-04-03 16:12] LABS: ALKALINE PHOSPHATASE 129 U/L (45-117); ALT/SGPT 23 U/L (12-78); AST/SGOT 11 U/L (15-37)
[2017-04-03 18:01] VITALS: BP 93/56; PULSE 61; O2SAT 97
== END 2017-04-03 18:00 | disposition home or self-care (01) ==
LOC: C.EDB 14:42 → C.EDA 18:00
DX: G40.909 Epilepsy, unspecified, not intractable, without status epilepticus (principal); G80.9 Cerebral palsy, unspecified; K21.9 Gastro-esophageal reflux disease without esophagitis; Z85.47 Personal history of malignant neoplasm of testis; F73 Profound intellectual disabilities; E55.9 Vitamin D deficiency, unspecified; Z79.899 Other long term (current) drug therapy

== ENCOUNTER 2017-05-06 03:35 | Inpatient (IN) | payer OTHER ==
[~2017-05-06] VITALS: Ht 172.7 cm; Wt 64.2 kg
[~2017-05-06 03:35] MED LIST changes: -BCTROWC TOP; -DIAZ10GE RE; +FLUT50SP45; -KETO2SHA TOP; +LACO50TA PO; -POLY99.0 OPB; -SKINCRE TOP
[2017-05-06] MEDS ORDERED: SODIUM CHLORIDE 0.9% 1000ML 1,000 ML IV STA (03:41)
[2017-05-06] MEDS ORDERED: LORAZEPAM 2 MG/ML 1 ML VIAL IV STA (04:10)
[2017-05-06 04:22] LABS: BASO % 0.2 %; BASO ABS # 0.01 K/uL (0-0.2); EOS % 0.2 %; EOS ABS # 0.01 K/uL (0-0.5); HEMATOCRIT 41.1 % (42-52); HEMOGLOBIN 13.4 g/dL (14.0-18.0); IG# 0.01 K/uL (0.00-0.02); LYMPH % 13.4 %; LYMPH ABS # 0.75 K/uL (1.2-3.4); MEAN CORPUSCULAR HEMOGLOBIN 30.3 pg (25-34); MEAN CORPUSCULAR HGB CONC 32.6 g/dl (32-36); MEAN PLATELET VOLUME 11.2 fL (7.4-10.4); MONO % 13.1 %; MONO ABS # 0.73 K/uL (0.11-0.59); NEUT % 72.9 %; NEUT ABS # 4.08 K/uL (1.4-6.5); PLATELET COUNT 174 K/uL (130-400); RED CELL DISTRIBUTION WIDTH SD 44.4 fL (36.4-46.3); WHITE BLOOD COUNT 5.59 K/uL (4.8-10.8)
[2017-05-06] MEDS ORDERED: MULT-411 PO (04:26)
[2017-05-06] MEDS ORDERED: FIBER PO ×2 (04:31)
[2017-05-06 04:33] LABS: PTT PATIENT 27.6 SECONDS (21.0-31.0)
[2017-05-06] MEDS ORDERED: PHENOBARBITAL 32.4 MG PO (04:35)
[2017-05-06 04:39] LABS: ALBUMIN 3.6 gm/dl (3.4-5.0); CREATININE 0.84 mg/dl (0.60-1.40); POTASSIUM 3.5 mmol/L (3.5-5.1)
[2017-05-06] MEDS ORDERED: DIAZEPAM RE (04:40)
[2017-05-06 04:41] LABS: TOTAL PROTEIN 6.7 gm/dl (6.4-8.2)
[2017-05-06] MEDS ORDERED: BCTCR/30 EXT (04:43)
[2017-05-06] MEDS ORDERED: SKIN120C EXT (04:44)
[2017-05-06] MEDS ORDERED: KETO2SHA TOP (04:45)
--- NOTE | 2017-05-06 04:50 | EMERGENCY ROOM VISIT NOTE ---
ED Visit Note First contact with patient: 03:41 I saw this patient in conjunction with Jenniffer Calderon PA-C. I agree with her decision-making and treatment plan.
[2017-05-06 05:19] LABS: INFLUENZA B ANTIGEN Neg for Influ B (NEG)
[2017-05-06] MEDS ORDERED: POTASSIUM CHLORIDE 10 MEQ TABCR PO STA (05:41)
[2017-05-06] MEDS ORDERED: LACOSAMIDE 50 MG TAB PO SCH (05:45)
[2017-05-06] MEDS ORDERED: LORAZEPAM INJ 1 MG in SYRINGE 0.5 ML IV PRN (05:45)
[2017-05-06] MEDS ORDERED: ACETAMINOPHEN 325 MG TAB PO PRN (05:45)
[2017-05-06] MEDS ORDERED: LACOSAMIDE 50 MG TAB PO STA (05:58)
--- NOTE | 2017-05-06 06:04 | EMERGENCY ROOM VISIT NOTE ---
History First contact with patient: 03:41 Chief Complaint: SEIZURE Stated Complaint: SEIZURE X6; FEVER; URINARY Nursing Triage Summary: Pt has Hx of seizures, usually 1 per week. He had 6 in the past 24 hours, and one for EMS en route. Pt is normally non-verbal. Staff report foul-smelling urine. Last seizure for staff at 0100. Had fever at the home this afternoon and had Tylenol 650 mg at 1730 and 1930. History of Present Illness The patient is a 51 year old male who presents to the Emergency Room with complaints of multiple seizures this past day. Patient has a history of seizures and follows at Dr. Mancera who currently takes phenobarbital, Vimpat and Lamictal. And has normally a seizure to a week. Today the patient had 6 seizures and another one in route with EMS. Caregivers noticed a fever today. They gave Tylenol today. Caregiver also noticed that the patient had foul- smelling urine 2 days ago. They notified the doctor but no orders were placed for urinalysis. Caregiver denies cough, vomiting, diarrhea, rash. They state that he has been eating and drinking less today. Caregiver also states after he has a seizure he can be lethargic and postictal for a few hours. Caregiver states the patient is currently at his baseline. 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 Social History Smoking Status: Never Smoker Alcohol Use: none Drug Use: none Marital Status: single Housing Status: assisted living Occupation Status: disabled Current/Historical Medications Scheduled Calcium Carbonate-Vitamin D (Calcium + D), 2 TAB PO BID Calcium Polycarbophil (Fiber-Lax), 2 TABS PO DAILY AT 1600 Cholecalciferol (Vitamin D3), 1,000 INTER.UNIT PO BID Clonazepam (Klonopin), 0.25 MG PO HS Docusate Sodium (Stool Softener), 200 MG PO HS Fiber Laxative (Fiber Laxative), 500 MG PO QAM Fiber Laxative (Fiber Laxative), 1,000 MG PO QPM Fluoxetine Hcl (Prozac), 40 MG PO QAM Fluticasone Propionate (Nasal) (Allergy Nasal [place] 24 Ho), 2 SPRAYS NA DAILY Ketoconazole (Topical) (Ketoconazole), 1 APPLN TOP 2XWK Lacosamide (Vimpat), 100 MG PO BID Lacosamide (Vimpat), 150 MG PO BID Lamotrigine (Lamictal), 400 MG PO BID Lorazepam (Ativan), 0.5 MG PO TID Multiple Vitamin (Daily Richi), 1 TAB PO QAM Omeprazole (Prilosec), 20 MG PO QAM Phenobarbital (Phenobarbital), 64.8 MG PO QPM Polyethylene Glycol 3350 (Bulk (Polyethylene Glycol 3350), 17 GM PO DAILY Sennosides-Docusate Sodium (Sennalax-S), 2 TABS PO BID Skin Protectants, Misc. (Hydrocerin), 1 APPLN EXT BID Sorbitol (Laxative) (Sorbitol), 20 ML PO DAILY Zonisamide (Zonegran), 300 MG PO HS [phenobarbital 32.4mg], 32.4 MG PO QAM Scheduled PRN Mupirocin 2% (Bactroban 2%), 1 APPLN EXT UD PRN for skin irritation [diazepam gel], 5 MG RE DIRECTED PRN for seizures Physical Exam Vital Signs Date Time Temp Pulse Resp B/P (MAP) Pulse Ox O2 Delivery O2 Flow Rate FiO2 05/06/17 05:30 103/49 05/06/17 05:25 66 19 96 05/06/17 05:10 67 23 94 05/06/17 05:01 96/50 05/06/17 04:55 65 23 95 05/06/17 04:40 71 22 95 05/06/17 04:35 69 22 95 Room Air 05/06/17 04:31 107/53 05/06/17 04:20 67 22 96 05/06/17 04:05 70 22 95 05/06/17 04:02 108/50 05/06/17 03:55 74 05/06/17 03:53 37.7 78 22 111/46 94 Room Air 05/06/17 03:40 111/46 Physical Exam VITALS: Vitals are noted on the nurse's note and reviewed by myself. Vital signs low-grade temperature. GENERAL: Mild ill-appearing gentleman, in no acute distress, nondiaphoretic, well-developed well-nourished. SKIN: The skin was without rashes, erythema, edema, or bruising. There is no tenting of the skin. Capillary reflex less than 2 seconds. HEAD: Normocephalic atraumatic. EARS: External auditory canals clear, tympanic membranes pearly ahumada without erythema or effusion bilaterally. EYES: Pupils equal round and reactive to light and accommodation. Conjunctivae without injection, sclerae without icterus. Extraocular movements intact. NOSE: Patent, turbinates without inflammation or discharge. MOUTH: Mucous membranes mildly dry pharynx without erythema or exudate. Uvula midline. Airway patent. Tongue does not deviate. NECK: Supple without nuchal rigidity. No lymphadenopathy. No thyromegaly. Cervical spine is nontender. No JVD. HEART: Regular rate and rhythm LUNGS: Clear to auscultation bilaterally without wheezes, rales or rhonchi. No dullness to percussion. No retractions or accessory muscle use. ABDOMEN: Positive bowel sounds x 4. Normal tympanic percussion. Soft, nontender, without masses or organomegaly. Hines sign negative. No guarding or rebound tenderness. MUSCULOSKELETAL: No muscle atrophy, erythema, or edema noted. NEURO: Patient was alert and nonverbal at baseline. No focal neurological deficits. Medical Decision & Procedures Laboratory Results 05/06/17 04:00 Red Blood Count 4.42, Mean Corpuscular Volume 93.0, Mean Corpuscular Hemoglobin 30.3, Mean Corpuscular Hemoglobin Concent 32.6, Mean Platelet Volume 11.2, Neutrophils (%) (Auto) 72.9, Lymphocytes (%) (Auto) 13.4, Monocytes (%) (Auto) 13.1, Eosinophils (%) (Auto) 0.2, Basophils (%) (Auto) 0.2, Neutrophils # (Auto ) 4.08, Lymphocytes # (Auto) 0.75, Monocytes # (Auto) 0.73, Eosinophils # (Auto ) 0.01, Basophils # (Auto) 0.01 05/06/17 04:00 Test 05/06/17 00:00 05/06/17 04:00 05/06/17 04:06 Influenza Type A Antigen Neg for Influ A (NEG) Influenza Type B Antigen Neg for Influ B (NEG) White Blood Count 5.59 K/uL (4.8-10.8) Red Blood Count 4.42 M/uL (4.7-6.1) Hemoglobin 13.4 g/dL (14.0-18.0) Hematocrit 41.1 % (42-52) Mean Corpuscular Volume 93.0 fL (80-100) Mean Corpuscular Hemoglobin 30.3 pg (25-34) Mean Corpuscular Hemoglobin Concent 32.6 g/dl (32-36) Platelet Count 174 K/uL (130-400) Mean Platelet Volume 11.2 fL (7.4-10.4) Neutrophils (%) (Auto) 72.9 % Lymphocytes (%) (Auto) 13.4 % Monocytes (%) (Auto) 13.1 % Eosinophils (%) (Auto) 0.2 % Basophils (%) (Auto) 0.2 % Neutrophils # (Auto) 4.08 K/uL (1.4-6.5) Lymphocytes # (Auto) 0.75 K/uL (1.2-3.4) Monocytes # (Auto) 0.73 K/uL (0.11-0.59) Eosinophils # (Auto) 0.01 K/uL (0-0.5) Basophils # (Auto) 0.01 K/uL (0-0.2) RDW Standard Deviation 44.4 fL (36.4-46.3) RDW Coefficient of Variation 13.0 % (11.5-14.5) Immature Granulocyte % (Auto) 0.2 % Immature Granulocyte # (Auto) 0.01 K/uL (0.00-0.02) Prothrombin Time 10.5 SECONDS (9.0-12.0) Prothromb Time International Ratio 1.0 (0.9-1.1) Activated Partial Thromboplast Time 27.6 SECONDS (21.0-31.0) Partial Thromboplastin Ratio 1.1 Urine Color DK YELLOW Urine Appearance TURBID (CLEAR) Urine pH 8.5 (4.5-7.5) Urine Specific [place] 1.026 (1.000-1.030) Urine Protein NEG (NEG) Urine Glucose (UA) NEG (NEG) Urine Ketones NEG (NEG) Urine Occult Blood NEG (NEG) Urine Nitrite NEG (NEG) Urine Bilirubin NEG (NEG) Urine Urobilinogen NEG (NEG) Urine Leukocyte Esterase TRACE (NEG) Urine WBC (Auto) 1-5 /hpf (0-5) Urine RBC (Auto) 0-4 /hpf (0-4) Urine Hyaline Casts (Auto) 1-5 /lpf (0-5) Urine Epithelial Cells (Auto) >30 /lpf (0-5) Urine Bacteria (Auto) NEG (NEG) Urine Renal Epithelial Cells 0-5 /lpf (0-5) Urine Mucus PRESENT (NONE PRSENT) Anion Gap 8.0 mmol/L (3-11) Est Creatinine Clear Calc Drug Dose 95.5 ml/min Estimated GFR () 118.3 Estimated GFR (Non- 102.1 BUN/Creatinine Ratio 20.8 (10-20) Calcium Level 9.0 mg/dl (8.5-10.1) Magnesium Level 1.8 mg/dl (1.8-2.4) Total Bilirubin 0.3 mg/dl (0.2-1) Aspartate Amino Transf (AST/SGOT) 12 U/L (15-37) Alanine Aminotransferase (ALT/SGPT) 25 U/L (12-78) Alkaline Phosphatase 145 U/L (45-117) Total Protein 6.7 gm/dl (6.4-8.2) Albumin 3.6 gm/dl (3.4-5.0) Globulin 3.1 gm/dl (2.5-4.0) Albumin/Globulin Ratio 1.2 (0.9-2) Phenobarbital Level 29.6 mcg/mL (15.0-40.0) Bedside Lactic Acid Venous 0.99 mmol/L (0.90-1.70) Medications Administered Medications (Trade) Dose Ordered Sig/Porsha Route Start Time Stop Time Status Last Admin Dose Admin Sodium Chloride 1,000 ml @ 999 mls/hr Q1H1M STAT IV 05/06/17 03:41 05/06/17 04:41 DC 05/06/17 03:50 999 MLS/HR Lorazepam (Ativan Inj) 1 mg NOW STAT IV 05/06/17 04:10 05/06/17 04:12 DC 05/06/17 04:36 1 MG ED Course Prior records/ancillary studies reviewed. Patient placed in seizure precautions immediately upon arrival. Nursing notes reviewed. Additional history obtained from EMS and caregiver The patient's history was concerning for a possible seizure. Differential diagnosis: Etiologies such as infection, hypoglycemia, electrolyte abnormalities, cardiac sources, intracerebral event, trauma, toxicologic, neurologic, as well as others were entertained. Physical examination: As above. No signs of trauma. ER treatment provided: IV fluids On reassessment the patient felt better. Diagnostics interpretation by me: ECG: Poor baseline, normal sinus, normal intervals, no acute ST-T wave changes. Impression normal sinus rhythm interpreted by myself The labs revealed negative lactic acid. Negative urine. Negative flu Imaging studies: Chest x-ray with no acute consolidation, pneumothorax or free air per my interpretation Consultation: A consultation was placed with the neurologist, Dr Guzmán. The case was discussed and diagnostics were reviewed. She recommends increasing the Vimpat from 150mg to 200 mg twice a day And giving an extra dose right now. I then spoke to medicine, Dr. Chang and will evaluate the patient for admission. The patient has a history of seizures and experienced another episode. He has had multiple seizures today. He'll be evaluated by medicine for admission. He' s had no prior seizures while in the ER. He is on when necessary Ativan. His seizure meds were increased. No obvious source for his fever. Negative urine. No pneumonia. Negative flu. He will be evaluated by medicine for admission. Caregiver was notified. All questions are answered. Patient was reassessed multiple times. The caregiver and patient informed about the findings as listed above. All questions were answered and pleased with the treatment. Case reviewed by attending Medical Decision As above Head Trauma GCS Score: 15 Medication Reconcilliation Current Medication List: was personally reviewed by me Blood Pressure Screening Patient's blood pressure: Normal blood pressure Impression Primary Impression: Seizure disorder Additional Impression: Fever Departure Information Dispostion Being Evaluated By Hospitalist Condition FAIR Referrals Soila Morales D.O. (PCP) Patient Instructions My [facility] Problem Qualifiers
[2017-05-06] MEDS ORDERED: AZTREONAM IV 2,000 MG in DEXTROSE 5% 100ML 100 ML IV STA (06:21)
[2017-05-06] MEDS ORDERED: ACETAMINOPHEN 325 MG TAB PO STA (06:21)
[2017-05-06] MEDS ORDERED: ACETAMINOPHEN IV 100 ML IV STA (06:34)
[2017-05-06] MEDS ORDERED: ACETAMINOPHEN IV 650 MG in EMPTY BAG 0 ML IV PRN (06:45)
--- NOTE | 2017-05-06 07:06 | DIAGNOSTIC IMAGING REPORT ---
CHEST ONE VIEW PORTABLE HISTORY: 51 years-old Male Sepsis acute sepsis with seizure COMPARISON: Chest radiograph 04/03/2017 TECHNIQUE: AP view of the chest FINDINGS: Patient is sidebend to the left and rotated to the left. Patient's chin partially secured to the left lung apex. Cardiac silhouette is mildly enlarged. No pneumothorax, pleural effusion, focal airspace consolidation or overt pulmonary edema. Mild right hemidiaphragmatic elevation. The bones of the chest appear to be grossly intact. Probable remote distal left clavicle fracture. Remote appearing fractures of the right ribs. IMPRESSION: No acute cardiopulmonary process. The above report was generated using voice recognition software. It may contain grammatical, syntax or spelling errors. Electronically signed by: Sarath Nova M.D. 05/06/2017 7:05 AM Dictated Date/Time: 05/06/2017 7:03 AM
[2017-05-06 07:15] VITALS: O2SAT 94; Ht 172.7 cm; Wt 64.2 kg
[2017-05-06] MEDS: CALCIUM POLYCARBOPHIL 1 TAB PO SCH (08:23)
[2017-05-06] MEDS ORDERED: FIBER LAXATIVE PO SCH ×2 (08:23→21:00)
[2017-05-06] MEDS ORDERED: AZTREONAM CONSULT ACTIVE PRN (08:23)
[2017-05-06] MEDS: DOCUSATE SODIUM/SENNA 50/8.6MG TAB PO SCH ×2 (08:23→19:55)
[2017-05-06] MEDS: POLYETHYLENE (MIRALAX) 17 GM PACK PO SCH (08:23)
[2017-05-06] MEDS: SORBITOL 70% 30ML UDC PO SCH (08:23)
[2017-05-06 08:32] VITALS: BP 83/38; PULSE 68; TEMP 36.9; O2SAT 91
[2017-05-06] MEDS: POTASSIUM CHLR 10 MEQ / WTR 10 MEQ in PREMIXED WATER 100 ML IV SCH ×3 (09:33→11:42)
[2017-05-06] MEDS ORDERED: MAGNESIUM SULFATE 1GM / D5W 1 GM in PREMIXED IN D5W 100 ML IV ONE (10:00)
[2017-05-06] MEDS: NSS + 20MEQ KCL 1000ML 1,000 ML IV SCH (11:01)
[2017-05-06] MEDS: FLUTICASONE PROPIONATE NA SPR 16 GM BTL SCH (11:02)
[2017-05-06] MEDS: EUCERIN CR 120 GM JAR EXT SCH ×2 (11:02→19:54)
[2017-05-06] MEDS: ENOXAPARIN 30 MG/0.3 ML SYR SQ SCH (11:03)
[2017-05-06] MEDS: MULTIVITAMIN TAB PO SCH (11:03)
[2017-05-06] MEDS: PANTOprazole SOD 40 MG TAB PO SCH (11:03)
[2017-05-06] MEDS: FLUOXETINE HCL 20 MG CAP PO SCH (11:03)
--- NOTE | 2017-05-06 11:11 | HISTORY & PHYSICAL EXAMINATION ---
DATE OF ADMISSION: 05/06/2017 PRIMARY CARE PHYSICIAN: Dr. Morales. CHIEF COMPLAINT: Recurrent seizures as per records. HISTORY OF PRESENT ILLNESS: History obtained from patient caregiver and records. Unable to obtain history from patient secondary nonverbal state. Medical history significant for recurrent seizures, cerebral palsy, aspiration risk, chronic anemia (baseline hemoglobin of 13), OCD as per records, Testicular cancer right status post surgery, mental retardation as per records partial trisomy as per records Recent confinement in 2013 for right hip fracture sp surgery. As per caregiver's notes, yesterday the patient had 6 seizures despite compliance with AED regimen. Normal frequency usually once a week. Noted to be febrile. Urine was foul smelling. No cough symptoms. Patient brought to the Emergency Room. Given Ativan in the ER. MEDICAL HISTORY: As above. SURGERIES: He has had orchiectomy, hip surgery. HOME MEDICATIONS: Include Senokot, sorbitol, Zonegran, diazepam gel, phenobarbital, Lamictal, lorazepam, Bactroban, Prilosec, ketaconazole, Vimpat, calcium plus D, Klonopin, stool softener, Prozac. ALLERGIES: BENZTROPINE, ERYTHROMYCIN, NEOMYCIN, ACYCLOVIR, CEPHALOSPORIN. FAMILY HISTORY: Could not be obtained. PERSONAL AND SOCIAL HISTORY: Nonsmoker, [facility] resident the last 8 months. REVIEW OF SYSTEMS: Could not be reliably obtained. PHYSICAL EXAMINATION: VITAL SIGNS: Blood pressure was noted to be 109/56, pulse rate 69, RR 20, T 38 sats 95 on room air. GENERAL: Noted to be nonverbal and follows some commands. No respiratory distress, somewhat lethargic. SKIN: Pallor and warm. HEENT: Pale palpebral conjuctivae. No ptosis, Dry mucosa. NECK: Supple. No tenderness. CHEST: Decreased effort. No tenderness. HEART: Regular rate and rhythm, no murmur. ABDOMEN: Soft, nontender. EXTREMITIES: No overt edema, no tendernes, chronic spastic contractures of the extremities. NEUROLOGIC: Nonverbal and lethargic. Gait and stance not assessed. LABORATORIES: Hemoglobin was noted to be 13.4, hematocrit 41, white blood cell count 5.5, platelets noted to be 174. Sodium 140, potassium 3.5, chloride 105, CO2 25, BUN 18, creatinine 0.8, glucose 109. Serum phenobarbital level was 29.6. Chest x-ray, no acute pathology. UA, trace WBC, esterase positive, epithelial cells, ASSESSMENT: 1. Recurrent seizures possibly from complicated urinary tract infection (Patient not septic.) 2. hx chronic constipation 3. hx Testicular cancer status post surgery 4. Mental retardation/cerebral palsy as per records 5. chronic anemia, hemoglobin at baseline 6. Known aspiration risk. PLAN: GMF seizure precautions. Ativan when necessary Neurology consult. RE recurrent seizures (ER provider already in touch with Dr. Bailey, neurologist on-call, who recommended continuing other AED meds and increasing Vimpat dosing from 100 mg BID to 200 mg BID.) Follow urine cultures. Azactam for UTI, DVT prophylaxis, Lovenox subQ. DNR as per conversation with patient's mother, Mrs. Zaida Merchant. She requests updates from providers at [phone]. Prior to talking to patient's mother, I inquired from the [facility], Miss Bhavana Lopez ([phone]), about the facility's knowledge of any existing advanced directives for the patient in light of DNR documentation from previous 2013 admission when patient was a [facility] resident. Miss Lopez told me that patient had been presumed to be Full Code since patient moved in last year insofar as the [facility] currently does not have any specific documentation of advanced directives information for the patient in their possession. Miss Lopez also told me that they don't have any documentation of patient's mother being patient's legal guardian for which the facility has a process of establishing. I relayed above information to patient's mother/stepfather over the phone and they will be in touch with the [facility] regarding procedure for establishing guardianship/POA for the obviously incapacitated patient. I also reached out to the hospital case aide on-call, Miss Wendy James, about the issue who recommended possibly getting an inpatient Palliative Care consult to assist in advanced directives planning, POLST form preparation for the patient. RUDY
[2017-05-06] MEDS: PHENOBARBITAL 32.4 MG TAB PO SCH ×2 (11:17→22:06)
[2017-05-06] MEDS: LORAZEPAM 0.5 MG TAB PO SCH ×3 (11:41→19:54)
[2017-05-06] MEDS: AZTREONAM IV 2,000 MG in DEXTROSE 5% 100ML 100 ML IV SCH ×2 (15:08→23:23)
--- NOTE | 2017-05-06 15:42 | Progress Note ---
Internal Med Progress Note Date of Service: May 06, 2017. Provider Documentation: SUBJECTIVE: Seen and examined at bedside Patient is non verbal Sitter at bedside No seizure activity since hospitalization Seemed to be in no distress on exam OBJECTIVE: Vital Signs-as noted below Physical Exam: General Appearance:Thin, no apparent distress, Non verbal Head: normocephalic, Atraumatic Eyes: normal inspection, EOMI, PERRL Neck: supple, Trachea midline Respiratory/Chest: Decreased breath sounds, CTA Cardiovascular: S1, S2, No murmur Abdomen/GI:Soft, Non tender, Bowel sounds present Extremities/Musculoskelatal:normal inspection, no edema Neurologic/Psych:Non verbal, difficult to assess Skin: normal color, warm Lab data as noted below. ASSESSMENT & PLAN: Recurrent seizures: H/O MR, Cerebral Palsy Presented with fever, recurrent seizures CXR:No acute cardiopulmonary process UA: ? contamination Continue Vimpat dose increased from 100 mg BID to 200 mg BID Continue Phenobarbital, Lamictal Lamictal levels:pending Phenobarbital levels:29.6 seizure/Aspiration precautions TSH:normal Neurology consulted Abnormal UA: R/O UTI Blood/Urine cultures:pending Continue empiric Azactam IV fluids Normal lactate levels H/O chronic constipation: Continue bowel regimen H/O Testicular cancer S/P surgery H/O Mental retardation H/O cerebral palsy stable Chronic anemia: Monitor Hb No bleeding issues DVT Px: Lovenox SQ Code Status: DNR as per conversation with patient's mother, Mrs. Zaida Merchant. Consulted Palliative Care to address goals of care Disposition: Plan to discharge to alf when medically stable Vital Signs: Date Time Temp Pulse Resp B/P (MAP) Pulse Ox O2 Delivery O2 Flow Rate FiO2 05/06/17 08:32 36.9 68 20 83/38 (53) 91 Room Air 05/06/17 08:04 82 20 97/49 91 05/06/17 07:57 82 20 97/49 91 Room Air 05/06/17 07:15 94 Room Air 05/06/17 06:55 71 20 104/51 94 Room Air 05/06/17 06:40 73 24 94 05/06/17 06:30 104/51 05/06/17 06:25 73 23 94 05/06/17 06:20 69 23 93 05/06/17 06:18 38.4 05/06/17 06:05 69 21 95 05/06/17 06:01 109/56 05/06/17 05:50 70 22 95 05/06/17 05:35 67 23 95 05/06/17 05:30 103/49 05/06/17 05:25 66 19 96 05/06/17 05:10 67 23 94 05/06/17 05:01 96/50 05/06/17 04:55 65 23 95 05/06/17 04:40 71 22 95 05/06/17 04:35 69 22 95 Room Air 05/06/17 04:31 107/53 05/06/17 04:20 67 22 96 05/06/17 04:05 70 22 95 05/06/17 04:02 108/50 05/06/17 03:55 74 05/06/17 03:53 37.7 78 22 111/46 94 Room Air 05/06/17 03:40 111/46 Lab Results: Results Past 24 Hours Test 05/06/17 00:00 05/06/17 04:00 05/06/17 04:06 05/06/17 06:56 Range/Units Influenza Type A Antigen Neg for Influ A NEG Influenza Type B Antigen Neg for Influ B NEG White Blood Count 5.59 4.8-10.8 K/uL Red Blood Count 4.42 4.7-6.1 M/uL Hemoglobin 13.4 14.0-18.0 g/dL Hematocrit 41.1 42-52 % Mean Corpuscular Volume 93.0 80-100 fL Mean Corpuscular Hemoglobin 30.3 25-34 pg Mean Corpuscular Hemoglobin Concent 32.6 32-36 g/dl Platelet Count 174 130-400 K/uL Mean Platelet Volume 11.2 7.4-10.4 fL Neutrophils (%) (Auto) 72.9 % Lymphocytes (%) (Auto) 13.4 % Monocytes (%) (Auto) 13.1 % Eosinophils (%) (Auto) 0.2 % Basophils (%) (Auto) 0.2 % Neutrophils # (Auto) 4.08 1.4-6.5 K/uL Lymphocytes # (Auto) 0.75 1.2-3.4 K/uL Monocytes # (Auto) 0.73 0.11-0.59 K/uL Eosinophils # (Auto) 0.01 0-0.5 K/uL Basophils # (Auto) 0.01 0-0.2 K/uL RDW Standard Deviation 44.4 36.4-46.3 fL RDW Coefficient of Variation 13.0 11.5-14.5 % Immature Granulocyte % (Auto) 0.2 % Immature Granulocyte # (Auto) 0.01 0.00-0.02 K/uL Prothrombin Time 10.5 9.0-12.0 SECONDS Prothromb Time International Ratio 1.0 0.9-1.1 Activated Partial Thromboplast Time 27.6 21.0-31.0 SECONDS Partial Thromboplastin Ratio 1.1 Urine Color DK YELLOW Urine Appearance TURBID CLEAR Urine pH 8.5 4.5-7.5 Urine Specific [place] 1.026 1.000-1.030 Urine Protein NEG NEG Urine Glucose (UA) NEG NEG Urine Ketones NEG NEG Urine Occult Blood NEG NEG Urine Nitrite NEG NEG Urine Bilirubin NEG NEG Urine Urobilinogen NEG NEG Urine Leukocyte Esterase TRACE NEG Urine WBC (Auto) 1-5 0-5 /hpf Urine RBC (Auto) 0-4 0-4 /hpf Urine Hyaline Casts (Auto) 1-5 0-5 /lpf Urine Epithelial Cells (Auto) >30 0-5 /lpf Urine Bacteria (Auto) NEG NEG Urine Renal Epithelial Cells 0-5 0-5 /lpf Urine Mucus PRESENT NONE PRSENT Sodium Level 138 136-145 mmol/L Potassium Level 3.5 3.5-5.1 mmol/L Chloride Level 105 98-107 mmol/L Carbon Dioxide Level 25 21-32 mmol/L Anion Gap 8.0 3-11 mmol/L Blood Urea Nitrogen 18 7-18 mg/dl Creatinine 0.84 0.60-1.40 mg/dl Est Creatinine Clear Calc Drug Dose 95.5 ml/min Estimated GFR () 118.3 Estimated GFR (Non- 102.1 BUN/Creatinine Ratio 20.8 10-20 Random Glucose 109 70-99 mg/dl Calcium Level 9.0 8.5-10.1 mg/dl Magnesium Level 1.8 1.8-2.4 mg/dl Total Bilirubin 0.3 0.2-1 mg/dl Aspartate Amino Transf (AST/SGOT) 12 15-37 U/L Alanine Aminotransferase (ALT/SGPT) 25 12-78 U/L Alkaline Phosphatase 145 45-117 U/L Total Protein 6.7 6.4-8.2 gm/dl Albumin 3.6 3.4-5.0 gm/dl Globulin 3.1 2.5-4.0 gm/dl Albumin/Globulin Ratio 1.2 0.9-2 Thyroid Stimulating Hormone (TSH) 3.020 0.300-4.500 uIu/ml Phenobarbital Level 29.6 15.0-40.0 mcg/mL Bedside Lactic Acid Venous 0.99 0.90-1.70 mmol/L Bedside Troponin I < 0.030 0-0.045 ng/ml Microbiology Results 05/06/17 Blood Culture, Received Pending 05/06/17 Blood Culture, Received Pending 05/06/17 Urine Culture, Received Pending
[2017-05-06] MEDS: LACOSAMIDE 50 MG TAB PO SCH (19:56)
[2017-05-06] MEDS: DOCUSATE SODIUM 100 MG CAP PO SCH (21:00)
--- NOTE | 2017-05-06 22:03 | NEUROLOGY CONSULTATION ---
DATE OF CONSULTATION: 05/06/2017 REASON FOR CONSULTATION: Breakthrough seizures. HISTORY OF PRESENT ILLNESS: Mr. Peoples is a 51-year-old patient who was previously a patient of Dr. Virgen and has now followed with Dr. Mancera. He has a history of profound developmental delay and Dr. 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 Dr. Mancera indicates that the patient has always had difficult to control seizures, usually about 7 per month but I certainly see reference to when he has had 4 in the space of 2 days. He has been on 4 anticonvulsants for many years at maximum doses. Dr. Mancera most recently added Vimpat has escalated it to 150 b.i.d. In the summer of 2016 he had a high phenobarb level and the dose was reduced somewhat. He describes his spells as very brief, generalized 45-60 seconds followed by postictal sedation. On this background, the patient was admitted to our facility having about 6 seizures in the past day. He additionally had 1 en route with the EMS. Caregivers have noted a fever on the day of admission, gave him Tylenol. Two days ago was thought to have foul-smelling urine. They notified the doctor. but no orders were placed. The caregiver had denied any cough, vomiting, diarrhea, rash and that he has been eating and drinking somewhat less on the day of admission. On admission to the Emergency Room and subsequently his T-max is 37.7. His blood pressure has varied and last was 83/38. When contacted by the Emergency Room after several discussion about dosing I had them give the patient additional Vimpat 200 mg and advised to increase the Vimpat dose to 200 twice a day. His labs on admission, his white count was normal. H&H 13/41, platelet count 174. PT, PTT normal. Chemistry profile notable for a BUN and creatinine of 18/0.84. Alkaline phosphatase of 145 and normal transaminases. TSH normal. Urinalysis notable for trace leukocyte esterase, greater than 30 epithelial cells, negative bacteria, present urine mucus. Toxicology phenobarb 29.6. Lamictal level pending. Flu titer is negative. The patient by report has not had any recurrent seizure since admission. PAST MEDICAL HISTORY: Notable for anemia, anxiety, cerebral palsy, dehydration, reflux, seizure, history of a testicular malignancy, hypothyroidism, hip fracture, vitamin D deficiency. PAST SURGICAL HISTORY: Unknown to this examiner. The patient has a large scar in his forehead which could have represented fall almost looks like he may have had a skin lesion resected. I am also assuming he may have had some hip surgery if there was a hip fracture. FAMILY HISTORY: Not known to me. SOCIAL HISTORY: Nonsmoker, nondrinker, lives in a alf. MEDICATIONS: On admission, calcium, Fiber-Lax, vitamin D3, Klonopin 2.25 at bedtime, stool softeners, laxatives, Prozac 40 q.a.m., fluticasone nasal spray, ketaconazole topical, Vimpat 150 twice a day, Lamictal 400 b.i.d., lorazepam 0.5 t.i.d., multiple vitamins, omeprazole, phenobarbital 64.8 in the night and 32.4 in the morning, polyethylene glycol, Senna-Lax, sorbitol p.r.n., diazepam gel rectally per seizure protocol. The patient's chest x-ray showed no acute pulmonary process. An electrocardiogram showed sinus rhythm, occasional PVCs. REVIEW OF SYSTEMS: Unobtainable. PHYSICAL EXAMINATION: GENERAL: The patient is sleepy but arousable, resting. HEENT: He has an increased AP diameter of the head, a well-healed midline frontal scar. NECK: Supple. NEUROLOGIC: His tongue is outside of his mouth. I do not see any obvious tongue biting. He awakes to voice, does not follow commands, moves his upper extremities spontaneously and volitionally. His pupils are mildly dilated. They are reactive. There was no fixed gaze deviation. Eye movements were volitional. No obvious facial asymmetry. There is increased tone in all 4 extremities, more so the lowers than the uppers. Reflexes are mildly brisk. Difficult to elicit in the lower due to spasticity and toes were mute. Cerebellar sensory unobtainable IMPRESSION: Increased pattern of seizure, possibly related to fever etiology of fever unknown. PLAN: At present continue the same dose of phenobarbital, Lamictal, increase the Vimpat to 200 twice a day and monitor. I would use Ativan on a p.r.n. basis for breakthrough seizures that were more than 2 or 3 minutes long. We will follow with you. [facility]
[2017-05-06] MEDS: CLONAZEPAM 0.5 MG TAB PO SCH (22:05)
[2017-05-06 23:09] VITALS: BP 101/53; PULSE 72; TEMP 36.8; O2SAT 95
[2017-05-07] VITALS (7 sets, daily range): BP systolic 90–109; BP diastolic 53–60; PULSE 60–72; TEMP 36.5–38; O2SAT 95–97
[2017-05-07 05:59] LABS: BASO % 0.2 %; BASO ABS # 0.01 K/uL (0-0.2); HEMATOCRIT 36.7 % (42-52); HEMOGLOBIN 12.4 g/dL (14.0-18.0); LYMPH % 29.2 %; LYMPH ABS # 1.19 K/uL (1.2-3.4); MEAN CELL VOLUME 92.2 fL (80-100); MEAN CORPUSCULAR HEMOGLOBIN 31.2 pg (25-34); MEAN CORPUSCULAR HGB CONC 33.8 g/dl (32-36); MEAN PLATELET VOLUME 10.9 fL (7.4-10.4); MONO % 13.8 %; MONO ABS # 0.56 K/uL (0.11-0.59); NEUT % 56.8 %; NEUT ABS # 2.31 K/uL (1.4-6.5); PLATELET COUNT 130 K/uL (130-400); RED CELL DISTRIBUTION WIDTH CV 12.9 % (11.5-14.5); WHITE BLOOD COUNT 4.07 K/uL (4.8-10.8)
[2017-05-07 06:36] LABS: CALCIUM 8.4 mg/dl (8.5-10.1); CREATININE 0.48 mg/dl (0.60-1.40); POTASSIUM 3.8 mmol/L (3.5-5.1)
[2017-05-07] MEDS: AZTREONAM IV 2,000 MG in DEXTROSE 5% 100ML 100 ML IV SCH ×2 (06:43→14:44)
[2017-05-07] MEDS: POLYETHYLENE (MIRALAX) 17 GM PACK PO SCH (08:00)
[2017-05-07] MEDS: SORBITOL 70% 30ML UDC PO SCH (08:00)
[2017-05-07] MEDS: DOCUSATE SODIUM/SENNA 50/8.6MG TAB PO SCH ×2 (08:00→20:17)
[2017-05-07] MEDS: NSS + 20MEQ KCL 1000ML 1,000 ML IV SCH (08:23)
[2017-05-07] MEDS: EUCERIN CR 120 GM JAR EXT SCH ×2 (08:23→20:18)
[2017-05-07] MEDS: LORAZEPAM 0.5 MG TAB PO SCH ×3 (08:24→20:14)
[2017-05-07] MEDS: FLUTICASONE PROPIONATE NA SPR 16 GM BTL SCH (08:24)
[2017-05-07] MEDS: PHENOBARBITAL 32.4 MG TAB PO SCH ×2 (08:24→20:23)
[2017-05-07] MEDS: ENOXAPARIN 30 MG/0.3 ML SYR SQ SCH (08:25)
[2017-05-07] MEDS: CALCIUM POLYCARBOPHIL 1 TAB PO SCH (08:26)
[2017-05-07] MEDS: LACOSAMIDE 50 MG TAB PO SCH ×2 (08:26→20:17)
[2017-05-07] MEDS: FLUOXETINE HCL 20 MG CAP PO SCH (08:27)
[2017-05-07] MEDS: PANTOprazole SOD 40 MG TAB PO SCH (08:27)
[2017-05-07] MEDS: MULTIVITAMIN TAB PO SCH (08:27)
--- NOTE | 2017-05-07 11:46 | Progress Note ---
Internal Med Progress Note Date of Service: May 07, 2017. Provider Documentation: SUBJECTIVE: Seen and examined at bedside Patient is non verbal Low grade fever this morning Sitter at bedside No seizure activity since hospitalization Seemed to be in no distress on exam No new complaints OBJECTIVE: Vital Signs-as noted below Physical Exam: General Appearance:Thin, no apparent distress, Non verbal Head: normocephalic, Atraumatic Eyes: normal inspection, EOMI, PERRL Neck: supple, Trachea midline Respiratory/Chest: Decreased breath sounds, CTA Cardiovascular: S1, S2, No murmur Abdomen/GI:Soft, Non tender, Bowel sounds present Extremities/Musculoskelatal:normal inspection, no edema Neurologic/Psych:Non verbal, difficult to assess Skin: normal color, warm Lab data as noted below. ASSESSMENT & PLAN: Recurrent seizures: Likely Induced by fever H/O MR, Cerebral Palsy Presented with fever, recurrent seizures CXR:No acute cardiopulmonary process UA: ? contamination Continue Vimpat dose increased from 100 mg BID to 200 mg BID Continue Phenobarbital, Lamictal Lamictal levels:pending Phenobarbital levels:29.6 seizure/Aspiration precautions TSH:normal Appreciate Neurology Input Abnormal UA: R/O UTI Blood culture: No growth to date Urine culture:pending Continue empiric Azactam continue IV fluids Normal lactate levels H/O chronic constipation: Continue bowel regimen H/O Testicular cancer S/P surgery H/O Mental retardation H/O cerebral palsy stable Chronic anemia: Monitor Hb No bleeding issues DVT Px: Lovenox SQ Code Status: DNR as per conversation with patient's mother, Mrs. Zaida Merchant. Consulted Palliative Care to address goals of care /Code Status Disposition: Plan to discharge to longterm when medically stable Contact Number for Patient Safety Officer:[phone] Vital Signs: Date Time Temp Pulse Resp B/P (MAP) Pulse Ox O2 Delivery O2 Flow Rate FiO2 05/07/17 11:50 36.7 72 16 98/59 (72) 97 Room Air 05/07/17 10:08 36.5 05/07/17 08:02 37.9 60 16 90/53 (65) 95 Room Air 05/07/17 00:00 Room Air 05/06/17 23:09 36.8 72 16 101/53 (69) 95 Room Air 05/06/17 20:00 Room Air Lab Results: Results Past 24 Hours Test 05/07/17 05:14 Range/Units White Blood Count 4.07 4.8-10.8 K/uL Red Blood Count 3.98 4.7-6.1 M/uL Hemoglobin 12.4 14.0-18.0 g/dL Hematocrit 36.7 42-52 % Mean Corpuscular Volume 92.2 80-100 fL Mean Corpuscular Hemoglobin 31.2 25-34 pg Mean Corpuscular Hemoglobin Concent 33.8 32-36 g/dl Platelet Count 130 130-400 K/uL Mean Platelet Volume 10.9 7.4-10.4 fL Neutrophils (%) (Auto) 56.8 % Lymphocytes (%) (Auto) 29.2 % Monocytes (%) (Auto) 13.8 % Eosinophils (%) (Auto) 0.0 % Basophils (%) (Auto) 0.2 % Neutrophils # (Auto) 2.31 1.4-6.5 K/uL Lymphocytes # (Auto) 1.19 1.2-3.4 K/uL Monocytes # (Auto) 0.56 0.11-0.59 K/uL Eosinophils # (Auto) 0.00 0-0.5 K/uL Basophils # (Auto) 0.01 0-0.2 K/uL RDW Standard Deviation 44.0 36.4-46.3 fL RDW Coefficient of Variation 12.9 11.5-14.5 % Immature Granulocyte % (Auto) 0.0 % Immature Granulocyte # (Auto) 0.00 0.00-0.02 K/uL Sodium Level 136 136-145 mmol/L Potassium Level 3.8 3.5-5.1 mmol/L Chloride Level 105 98-107 mmol/L Carbon Dioxide Level 22 21-32 mmol/L Anion Gap 9.0 3-11 mmol/L Blood Urea Nitrogen 9 7-18 mg/dl Creatinine 0.48 0.60-1.40 mg/dl Est Creatinine Clear Calc Drug Dose 167.2 ml/min Estimated GFR () 148.9 Estimated GFR (Non- 128.5 BUN/Creatinine Ratio 17.7 10-20 Random Glucose 84 70-99 mg/dl Calcium Level 8.4 8.5-10.1 mg/dl Magnesium Level 1.9 1.8-2.4 mg/dl
--- NOTE | 2017-05-07 14:58 | Neurology Progress Notes ---
Neurology Progress Note Date of Service May 07, 2017. Esequiel Gamboa is a 51 year old male with a history of seizures and CP and is non ambulatory and non verbal. He follows at Dr. Mancera who currently takes phenobarbital, Vimpat and Lamictal. And has normally a seizure to a week. prior to the arrival to ED he had 6 seizures and another one in route with EMS. Caregivers noticed a fever today. They gave Tylenol today. Caregiver also noticed that the patient had foul-smelling urine 2 days ago. They notified the doctor but no orders were placed for urinalysis. After he has a seizure he can be lethargic and postictal for a few hours. Caregiver is in the room and states he seems back to his baseline. He is alert NAD. No seizure activity since admission. Objective Date Time Temp Pulse Resp B/P (MAP) Pulse Ox O2 Delivery O2 Flow Rate FiO2 05/07/17 11:50 36.7 72 16 98/59 (72) 97 Room Air 05/07/17 10:08 36.5 05/07/17 08:02 37.9 60 16 90/53 (65) 95 Room Air 05/07/17 08:00 97 Room Air 05/07/17 00:00 Room Air 05/06/17 23:09 36.8 72 16 101/53 (69) 95 Room Air 05/06/17 20:00 Room Air Last 24 Hours Test 05/07/17 05:14 White Blood Count 4.07 K/uL Red Blood Count 3.98 M/uL Hemoglobin 12.4 g/dL Hematocrit 36.7 % Mean Corpuscular Volume 92.2 fL Mean Corpuscular Hemoglobin 31.2 pg Mean Corpuscular Hemoglobin Concent 33.8 g/dl Platelet Count 130 K/uL Mean Platelet Volume 10.9 fL Neutrophils (%) (Auto) 56.8 % Lymphocytes (%) (Auto) 29.2 % Monocytes (%) (Auto) 13.8 % Eosinophils (%) (Auto) 0.0 % Basophils (%) (Auto) 0.2 % Neutrophils # (Auto) 2.31 K/uL Lymphocytes # (Auto) 1.19 K/uL Monocytes # (Auto) 0.56 K/uL Eosinophils # (Auto) 0.00 K/uL Basophils # (Auto) 0.01 K/uL RDW Standard Deviation 44.0 fL RDW Coefficient of Variation 12.9 % Immature Granulocyte % (Auto) 0.0 % Immature Granulocyte # (Auto) 0.00 K/uL Sodium Level 136 mmol/L Potassium Level 3.8 mmol/L Chloride Level 105 mmol/L Carbon Dioxide Level 22 mmol/L Anion Gap 9.0 mmol/L Blood Urea Nitrogen 9 mg/dl Creatinine 0.48 mg/dl Est Creatinine Clear Calc Drug Dose 167.2 ml/min Estimated GFR () 148.9 Estimated GFR (Non- 128.5 BUN/Creatinine Ratio 17.7 Random Glucose 84 mg/dl Calcium Level 8.4 mg/dl Magnesium Level 1.9 mg/dl Imaging: no new imaging Exam: Gen: Alert NAD lungs CTA CV RRR hold arms up against gravity LE atrophy and contractures Current Inpatient Medications Medications (Trade) Dose Ordered Sig/Porsha Route Start Time Stop Time Status Last Admin Dose Admin Acetaminophen (Tylenol Tab) 650 mg Q6H PRN PO 05/06/17 05:45 06/05/17 05:44 Potassium Chloride/Sodium Chloride 1,000 ml @ 60 mls/hr [id number] IV 05/06/17 10:00 06/05/17 09:59 05/07/17 08:23 60 MLS/HR Lorazepam 1 mg/ Syringe 1 ml @ 0.5 mls/min Q5M PRN IV 05/06/17 05:45 06/05/17 05:44 Acetaminophen 650 mg/Empty Bag 65 ml @ 260 mls/hr Q6H PRN IV 05/06/17 06:45 06/05/17 06:44 Enoxaparin Sodium (Lovenox Inj) 30 mg QAM SQ 05/06/17 07:45 06/05/17 07:44 05/07/17 08:25 30 MG Calcium Polycarbophil (Fibercon Tab) 1 tab DAILY PO 05/06/17 08:23 06/05/17 08:59 05/07/17 08:26 1 TAB Clonazepam (Klonopin Tab) 0.25 mg HS PO 05/06/17 21:00 06/05/17 20:59 05/06/17 22:05 0.25 MG Docusate Sodium (coLACE CAP) 200 mg HS PO 05/06/17 21:00 06/05/17 20:59 Fluoxetine HCl (Prozac Cap) 40 mg QAM PO 05/06/17 08:23 06/05/17 08:59 05/07/17 08:27 40 MG Fluticasone Propionate (Flonase Nasal [employer]) 2 sprays DAILY NA 05/06/17 08:23 06/05/17 08:59 05/07/17 08:24 2 SPRAYS Lacosamide (Vimpat Tab) 200 mg BID PO 05/06/17 20:00 06/05/17 20:59 05/07/17 08:26 200 MG Lorazepam (Ativan Tab) 0.5 mg TID PO 05/06/17 08:23 06/05/17 08:59 05/07/17 14:05 0.5 MG Multivitamins (Multivitamin Tab) 1 tab QAM PO 05/06/17 08:23 06/05/17 08:59 05/07/17 08:27 1 TAB Senna/Docusate Sodium (Senokot S Tab) 2 tab BID PO 05/06/17 08:23 06/05/17 08:59 Multi-Ingredient Ointment (Eucerin Unscented Cr) 1 appln BID EXT 05/06/17 08:23 06/05/17 08:59 05/07/17 08:23 1 APPLN Pantoprazole Sodium (Protonix Tab) 40 mg QAM PO 05/06/17 08:23 06/05/17 08:59 05/07/17 08:27 40 MG Polyethylene (Miralax Powder Packet) 17 gm DAILY PO 05/06/17 08:23 06/05/17 08:59 Sorbitol (Sorbitol 70% Soln) 20 ml DAILY PO 05/06/17 08:23 06/05/17 08:59 Miscellaneous Information (Order Awaiting Action) 1 ea QS N/A 05/06/17 16:00 06/05/17 15:59 Aztreonam (Consult) 1 ea UD PRN N/A 05/06/17 08:23 06/05/17 08:22 Phenobarbital (Phenobarbital Tab) 32.4 mg DAILY PO 05/06/17 08:23 06/05/17 08:59 05/07/17 08:24 32.4 MG Phenobarbital (Phenobarbital Tab) 64.8 mg HS PO 05/06/17 21:00 06/05/17 20:59 05/06/17 22:06 64.8 MG Lamotrigine (Lamictal Tab) 400 mg BID PO 05/06/17 08:23 06/05/17 08:59 05/07/17 08:28 400 MG Aztreonam 2000 mg/ Dextrose 110 ml @ 100 mls/hr Q8H IV 05/06/17 15:00 05/16/17 14:59 05/07/17 06:43 100 MLS/HR Impression 51 year old male history of seizures Plan 1. fall and seizure precautions 2. continue phenobarb 32.4 mg am 64.8 mg pm level 29.6 3. Vimpat 200 mg BID 4. Lamictal 400 mg BID- level pending 5. illness can escalate seizure no evidence of UTI 6. continue current regime will follow with Dr Mancera as outpatient 7. ok to discharge once medically stable I have seen and discussed above patient with Dr Nohelia Bailey, neurology Pt seen and examined, remains at baseline, sleepy but arousable. Was eating earlier in the day. No further sz. Continue increased dose of vimpat, no change in other anticonvulsants. See Dr Mancera in follow-up. Will sign off. MATTY Bailey MD
--- NOTE | 2017-05-07 15:07 | Palliative Care Consultation ---
Consultation Date of Consultation: May 07, 2017. Requesting Physician: Dr. Rain Attending Physician: Dr. Rian Reason for Consultation: Goals of care History of Present Illness This 51 year old male patient with PMH cerebral palsy, MR, seizure disorder, and others listed below, [facility] with c/o multiple seizures and a fever. The fever apparently started before the seizures, the penitentiary gave him Tylenol. He then had about 4-5 seizures in a short period of time and patient became rather lethargic. He had abnormal UA upon arrival to ED, but culture has so far had no growth. He is on IV abx anyway. There was question in the ED of whether or not patient was a full code and/or how aggressive we should be with his treatment. The admitting physician contacted the penitentiary who stated they have no advance directive or POLST form. Palliative care is consulted to establish code status/goals of care. I met with the patient. He is nonverbal. A caregiver from his [facility]iary was there with him and said he is back to his normal self. While I was in room, he was fully awake, smiling and laughing, interacting with his caregiver. I called patient's mother who stated he is a DNR, but she is not able to get to hospital to do POLST form. She is elderly as well as her . I called the housekeeper hospital, Bhavana, at [facility]. She is taking a POLST form to the patient' s mother tomorrow to complete-- she will bring us a copy. Patient's mother indicated that other than resuscitation in event of cardiac arrest, patient should receive full treatment. Past Medical/Surgical History Medical History: Recurrent seizures Cerebral palsy Severe cognitive dysfunction since Aspiration risk Chronic anemia Right hip fracture 2014 s/p surgical repair Social History Smoking Status: Never Smoker History of Alcohol Use: No Drug Use: none Marital Status: single Occupation Status: disabled Review of Systems unable to obtain- nonverbal patient Allergies Coded Allergies: Acyclovir (Verified Allergy, Unknown, 05/06/17) Benztropine (Verified Allergy, Unknown, 05/06/17) Cephalosporins (Verified Allergy, Unknown, CEPHALEXIN, 05/06/17) Erythromycin (Verified Allergy, Unknown, 05/06/17) Neomycin (Verified Allergy, Unknown, unknown, 05/06/17) Medications Current Inpatient Medications Medications (Trade) Dose Ordered Sig/Porsha Route Start Time Stop Time Status Last Admin Dose Admin Acetaminophen (Tylenol Tab) 650 mg Q6H PRN PO 05/06/17 05:45 06/05/17 05:44 Potassium Chloride/Sodium Chloride 1,000 ml @ 60 mls/hr [id number] IV 05/06/17 10:00 06/05/17 09:59 05/07/17 08:23 60 MLS/HR Lorazepam 1 mg/ Syringe 1 ml @ 0.5 mls/min Q5M PRN IV 05/06/17 05:45 06/05/17 05:44 Acetaminophen 650 mg/Empty Bag 65 ml @ 260 mls/hr Q6H PRN IV 05/06/17 06:45 06/05/17 06:44 Enoxaparin Sodium (Lovenox Inj) 30 mg QAM SQ 05/06/17 07:45 06/05/17 07:44 05/07/17 08:25 30 MG Calcium Polycarbophil (Fibercon Tab) 1 tab DAILY PO 05/06/17 08:23 06/05/17 08:59 05/07/17 08:26 1 TAB Clonazepam (Klonopin Tab) 0.25 mg HS PO 05/06/17 21:00 06/05/17 20:59 05/06/17 22:05 0.25 MG Docusate Sodium (coLACE CAP) 200 mg HS PO 05/06/17 21:00 06/05/17 20:59 Fluoxetine HCl (Prozac Cap) 40 mg QAM PO 05/06/17 08:23 06/05/17 08:59 05/07/17 08:27 40 MG Fluticasone Propionate (Flonase Nasal [place]) 2 sprays DAILY NA 05/06/17 08:23 06/05/17 08:59 05/07/17 08:24 2 SPRAYS Lacosamide (Vimpat Tab) 200 mg BID PO 05/06/17 20:00 06/05/17 20:59 05/07/17 08:26 200 MG Lorazepam (Ativan Tab) 0.5 mg TID PO 05/06/17 08:23 06/05/17 08:59 05/07/17 14:05 0.5 MG Multivitamins (Multivitamin Tab) 1 tab QAM PO 05/06/17 08:23 06/05/17 08:59 05/07/17 08:27 1 TAB Senna/Docusate Sodium (Senokot S Tab) 2 tab BID PO 05/06/17 08:23 06/05/17 08:59 Multi-Ingredient Ointment (Eucerin Unscented Cr) 1 appln BID EXT 05/06/17 08:23 06/05/17 08:59 05/07/17 08:23 1 APPLN Pantoprazole Sodium (Protonix Tab) 40 mg QAM PO 05/06/17 08:23 06/05/17 08:59 05/07/17 08:27 40 MG Polyethylene (Miralax Powder Packet) 17 gm DAILY PO 05/06/17 08:23 06/05/17 08:59 Sorbitol (Sorbitol 70% Soln) 20 ml DAILY PO 05/06/17 08:23 06/05/17 08:59 Miscellaneous Information (Order Awaiting Action) 1 ea QS N/A 05/06/17 16:00 06/05/17 15:59 Aztreonam (Consult) 1 ea UD PRN N/A 05/06/17 08:23 06/05/17 08:22 Phenobarbital (Phenobarbital Tab) 32.4 mg DAILY PO 05/06/17 08:23 06/05/17 08:59 05/07/17 08:24 32.4 MG Phenobarbital (Phenobarbital Tab) 64.8 mg HS PO 05/06/17 21:00 06/05/17 20:59 05/06/17 22:06 64.8 MG Lamotrigine (Lamictal Tab) 400 mg BID PO 05/06/17 08:23 06/05/17 08:59 05/07/17 08:28 400 MG Aztreonam 2000 mg/ Dextrose 110 ml @ 100 mls/hr Q8H IV 05/06/17 15:00 05/16/17 14:59 05/07/17 06:43 100 MLS/HR Physical Exam Date Time Temp Pulse Resp B/P (MAP) Pulse Ox O2 Delivery O2 Flow Rate FiO2 05/07/17 11:50 36.7 72 16 98/59 (72) 97 Room Air 05/07/17 10:08 36.5 05/07/17 08:02 37.9 60 16 90/53 (65) 95 Room Air 05/07/17 08:00 97 Room Air 05/07/17 00:00 Room Air 05/06/17 23:09 36.8 72 16 101/53 (69) 95 Room Air 05/06/17 20:00 Room Air General Appearance: WD/WN, no apparent distress ENT: hearing grossly normal Neck: supple, no JVD Respiratory: lungs clear, no respiratory distress, no accessory muscle use Cardiovascular: regular rate, rhythm, no edema, + normal peripheral pulses Abdomen: normal bowel sounds, soft Neurologic/Psychiatric: alert, + pertinent finding (nonverbal) Skin: normal color Laboratory Results Last 24 Hours Test 05/07/17 05:14 White Blood Count 4.07 K/uL Red Blood Count 3.98 M/uL Hemoglobin 12.4 g/dL Hematocrit 36.7 % Mean Corpuscular Volume 92.2 fL Mean Corpuscular Hemoglobin 31.2 pg Mean Corpuscular Hemoglobin Concent 33.8 g/dl Platelet Count 130 K/uL Mean Platelet Volume 10.9 fL Neutrophils (%) (Auto) 56.8 % Lymphocytes (%) (Auto) 29.2 % Monocytes (%) (Auto) 13.8 % Eosinophils (%) (Auto) 0.0 % Basophils (%) (Auto) 0.2 % Neutrophils # (Auto) 2.31 K/uL Lymphocytes # (Auto) 1.19 K/uL Monocytes # (Auto) 0.56 K/uL Eosinophils # (Auto) 0.00 K/uL Basophils # (Auto) 0.01 K/uL RDW Standard Deviation 44.0 fL RDW Coefficient of Variation 12.9 % Immature Granulocyte % (Auto) 0.0 % Immature Granulocyte # (Auto) 0.00 K/uL Sodium Level 136 mmol/L Potassium Level 3.8 mmol/L Chloride Level 105 mmol/L Carbon Dioxide Level 22 mmol/L Anion Gap 9.0 mmol/L Blood Urea Nitrogen 9 mg/dl Creatinine 0.48 mg/dl Est Creatinine Clear Calc Drug Dose 167.2 ml/min Estimated GFR () 148.9 Estimated GFR (Non- 128.5 BUN/Creatinine Ratio 17.7 Random Glucose 84 mg/dl Calcium Level 8.4 mg/dl Magnesium Level 1.9 mg/dl Assessment & Plan Problem list: Fever Recurrent seizures- followed by neurology- none since admission Lethargy- resolved Cerebral palsy/severe cognitive impairment- nonverbal at baseline Abnormal UA- ?UTI- culture shows no growth Goals of care Palliative care recs: -Patient's mother confirmed that patient is DNR in the event of cardiac arrest. Otherwise, he should have full treatment. -general road supervisor, Bhavana Lopez ([phone]), is taking a POLST form the patient's mother tomorrow to complete. She will bring us a copy. -Plan is for [facility]. -Patient improved quickly with treatment in hospital. Given wishes to continue full treatment, I see no further palliative care needs at this time. Thank you kindly for this consult. I will sign off for now.
[2017-05-07] MEDS: CLONAZEPAM 0.5 MG TAB PO SCH (20:14)
[2017-05-07] MEDS: DOCUSATE SODIUM 100 MG CAP PO SCH (20:17)
[2017-05-08] VITALS: O2SAT 97
[2017-05-08] MEDS: NSS + 20MEQ KCL 1000ML 1,000 ML IV SCH (00:23)
[2017-05-08] MEDS: AZTREONAM IV 2,000 MG in DEXTROSE 5% 100ML 100 ML IV SCH ×2 (00:24→09:03)
[2017-05-08 06:33] LABS: HEMATOCRIT 38.5 % (42-52); HEMOGLOBIN 12.7 g/dL (14.0-18.0); MEAN CELL VOLUME 92.1 fL (80-100); MEAN CORPUSCULAR HEMOGLOBIN 30.4 pg (25-34); MEAN PLATELET VOLUME 11.4 fL (7.4-10.4); PLATELET COUNT 124 K/uL (130-400); RED CELL DISTRIBUTION WIDTH CV 13.1 % (11.5-14.5); RED CELL DISTRIBUTION WIDTH SD 43.8 fL (36.4-46.3); WHITE BLOOD COUNT 3.82 K/uL (4.8-10.8)
[2017-05-08 07:10] LABS: CREATININE 0.58 mg/dl (0.60-1.40); POTASSIUM 3.9 mmol/L (3.5-5.1)
[2017-05-08 08:17] VITALS: BP 104/54; PULSE 50; TEMP 36.5; O2SAT 96
[2017-05-08] MEDS: SORBITOL 70% 30ML UDC PO SCH (08:55)
[2017-05-08] MEDS: DOCUSATE SODIUM/SENNA 50/8.6MG TAB PO SCH (08:56)
[2017-05-08] MEDS: EUCERIN CR 120 GM JAR EXT SCH (08:56)
[2017-05-08] MEDS: CALCIUM POLYCARBOPHIL 1 TAB PO SCH (08:56)
[2017-05-08] MEDS: POLYETHYLENE (MIRALAX) 17 GM PACK PO SCH (08:56)
[2017-05-08] MEDS: MULTIVITAMIN TAB PO SCH (08:57)
[2017-05-08] MEDS: FLUTICASONE PROPIONATE NA SPR 16 GM BTL SCH (08:57)
[2017-05-08] MEDS: PANTOprazole SOD 40 MG TAB PO SCH (08:57)
[2017-05-08] MEDS: FLUOXETINE HCL 20 MG CAP PO SCH (08:58)
[2017-05-08] MEDS: LACOSAMIDE 50 MG TAB PO SCH (08:58)
[2017-05-08] MEDS: ENOXAPARIN 30 MG/0.3 ML SYR SQ SCH (08:59)
[2017-05-08] MEDS: PHENOBARBITAL 32.4 MG TAB PO SCH (09:03)
[2017-05-08] MEDS: LORAZEPAM 0.5 MG TAB PO SCH (09:03)
--- NOTE | 2017-05-08 10:10 | Progress Note ---
Internal Med Progress Note Date of Service: May 08, 2017. Provider Documentation: SUBJECTIVE: Seen and examined at bedside Having his breakfast this morning No swallowing issues Patient is non verbal Afebrile No seizure activity since hospitalization no distress on exam Planned to be discharged today OBJECTIVE: Vital Signs-as noted below Physical Exam: General Appearance:Thin, no apparent distress, Non verbal Head: normocephalic, Atraumatic Eyes: normal inspection, EOMI, PERRL Neck: supple, Trachea midline Respiratory/Chest: Normal breath sounds, CTA Cardiovascular: S1, S2, No murmur Abdomen/GI:Soft, Non tender, Bowel sounds present Extremities/Musculoskelatal:normal inspection, no edema Neurologic/Psych:Non verbal, difficult to assess Skin: normal color, warm Lab data as noted below. ASSESSMENT & PLAN: Recurrent seizures: Likely Induced by fever likely viral etiology H/O MR, Cerebral Palsy Presented with fever, recurrent seizures CXR:No acute cardiopulmonary process UA: ? contamination Continue Vimpat dose increased from 100 mg BID to 200 mg BID Continue Phenobarbital, Lamictal Lamictal levels:pending Phenobarbital levels:29.6 seizure/Aspiration precautions TSH:normal Appreciate Neurology Input Needs follow up with Neurology as outpatient Abnormal UA: Ruled out UTI Blood culture: No growth to date Urine culture:No growth DC Azactam DC IV fluids Normal lactate levels H/O chronic constipation: Continue bowel regimen H/O Testicular cancer S/P surgery H/O Mental retardation H/O cerebral palsy stable Chronic anemia: Monitor Hb No bleeding issues DVT Px: Lovenox SQ Code Status: DNR as per conversation with patient's mother, Mrs. Zaida Merchant. Consulted Palliative Care to address goals of care /Code Status Disposition: Plan [facility] discharge to [facility] today Contact Number for Can Reforming Machine Operator:[phone] Follow up with your Primary Care Physician on 05/11/17 at 10:55am Follow up with your Neurologist in 2-4 weeks Medication Changes: Your Vimpat dose is increased from 100 mg BID to 200 mg BID Other Instructions: Seek immediate medical attention if your symptoms reoccur or worsen Follow aspiration precautions: Purred diet, Moist Vital Signs: Date Time Temp Pulse Resp B/P (MAP) Pulse Ox O2 Delivery O2 Flow Rate FiO2 05/08/17 08:17 36.5 50 14 104/54 (71) 96 05/08/17 00:00 97 Room Air 05/07/17 23:21 36.7 63 18 109/60 (76) 95 Room Air 05/07/17 22:27 38.0 05/07/17 16:00 97 Room Air 05/07/17 16:00 36.9 64 16 97/59 (72) 97 Room Air 05/07/17 11:50 36.7 72 16 98/59 (72) 97 Room Air 05/07/17 10:08 36.5 Lab Results: Results Past 24 Hours Test 05/08/17 05:30 Range/Units White Blood Count 3.82 4.8-10.8 K/uL Red Blood Count 4.18 4.7-6.1 M/uL Hemoglobin 12.7 14.0-18.0 g/dL Hematocrit 38.5 42-52 % Mean Corpuscular Volume 92.1 80-100 fL Mean Corpuscular Hemoglobin 30.4 25-34 pg Mean Corpuscular Hemoglobin Concent 33.0 32-36 g/dl RDW Standard Deviation 43.8 36.4-46.3 fL RDW Coefficient of Variation 13.1 11.5-14.5 % Platelet Count 124 130-400 K/uL Mean Platelet Volume 11.4 7.4-10.4 fL Sodium Level 140 136-145 mmol/L Potassium Level 3.9 3.5-5.1 mmol/L Chloride Level 109 98-107 mmol/L Carbon Dioxide Level 25 21-32 mmol/L Anion Gap 6.0 3-11 mmol/L Blood Urea Nitrogen 10 7-18 mg/dl Creatinine 0.58 0.60-1.40 mg/dl Est Creatinine Clear Calc Drug Dose 138.4 ml/min Estimated GFR () 137.8 Estimated GFR (Non- 118.9 BUN/Creatinine Ratio 16.7 10-20 Random Glucose 79 70-99 mg/dl Calcium Level 9.0 8.5-10.1 mg/dl Magnesium Level 1.8 1.8-2.4 mg/dl
[2017-05-08] MEDS ORDERED: LACO100T PO (10:15)
--- NOTE | 2017-05-08 10:21 | Discharge Summary ---
Discharge Summary Date of Service May 08, 2017. Discharge Summary Admission Date: May 06, 2017 at 07:04 Discharge Date: May 08, 2017 Discharge Disposition: Personal care Principal Diagnosis: Seizure disorder Procedures: CXR: No acute cardiopulmonary process. Consultations: Neurology Pending Studies/Follow-Up: Follow up with your Primary Care Physician on 05/11/17 at 10:55am Follow up with your Neurologist in 2-4 weeks Medication Changes: Your Vimpat dose is increased from 100 mg BID to 200 mg BID Other Instructions: continue your home medications at usual doses:phenobarbital 32.4 mg am 64.8 mg pm and Lamictal 400 mg BID Your Lamictal levels are pending. Follow up with your doctor for results Seek immediate medical attention if your symptoms reoccur or worsen Follow aspiration precautions: Purred diet, Moist Medication Reconciliation Changed Medications: Lacosamide (Vimpat) 100 Mg Tab 200 MG PO BID for 30 Days, #120 TAB 2 Refills (Changed from: 100 MG; Refills: ) Continued Medications: Calcium Carbonate-Vitamin D (Calcium + D) 1 Tab Tab 2 TAB PO BID Calcium Polycarbophil (Fiber-Lax) 625 Mg Tab 2 TABS PO DAILY AT 1600 Cholecalciferol (Vitamin D3) 1,000 Unit Tab 1000 INTER.UNIT PO BID, TAB Clonazepam (Klonopin) 0.5 Mg Tab 0.25 MG PO HS Docusate Sodium (Stool Softener) 100 Mg Cap 200 MG PO HS HOLD FOR LOOSE STOOLS Fiber Laxative (Fiber Laxative) Ea 500 MG PO QAM Fiber Laxative (Fiber Laxative) Ea 1000 MG PO QPM Fluoxetine Hcl (Prozac) 40 Mg Cap 40 MG PO QAM, CAP Fluticasone Propionate (Nasal) (Allergy Nasal [place] 24 Ho) 50 Mcg/Act Spr 2 SPRAYS NA DAILY Ketoconazole (Topical) (Ketoconazole) 2 % Sha 1 APPLN TOP 2XWK for 30 Days, #120 ML 1 Refill apply to scalp on sun. and with shower Lamotrigine (Lamictal) 200 Mg Tab 400 MG PO BID, TAB Lorazepam (Ativan) 0.5 Mg Tab 0.5 MG PO TID, TAB Multiple Vitamin (Daily Richi) 1 Tab Tab 1 TAB PO QAM Mupirocin 2% (Bactroban 2%) 30 Gm Cr 1 APPLN EXT UD PRN for skin irritation, TUBE Omeprazole (Prilosec) 20 Mg Capcr 20 MG PO QAM, CAP Phenobarbital (Phenobarbital) 64.8 Mg Tab 64.8 MG PO QPM Polyethylene Glycol 3350 (Bulk (Polyethylene Glycol 3350) 1 Pow Pow 17 GM PO DAILY, GM MIX IN 4-8 OUNCES OF LIQUID. HOLD FOR LOOSE STOOLS. Sennosides-Docusate Sodium (Sennalax-S) 1 Tab Tab 2 TABS PO BID HOLD FOR LOOSE STOOLS Skin Protectants, Misc. (Hydrocerin) 1 Cre Cre 1 APPLN EXT BID Sorbitol (Laxative) (Sorbitol) 70 % Kiesha 20 ML PO DAILY HOLD FOR LOOSE STOOLS Zonisamide (Zonegran) 100 Mg Cap 300 MG PO HS [diazepam gel] () 5 MG RE DIRECTED PRN for seizures administer 5 mg if needed for seizure lasting greater than 5 min. second dose no sooner than 6 hours [phenobarbital 32.4mg] () 32.4 MG PO QAM Discontinued Medications: Lacosamide (Vimpat) 50 Mg Tab 150 MG PO BID Admission Information HPI (per Admitting provider): CHIEF COMPLAINT: Recurrent seizures as per records. HISTORY OF PRESENT ILLNESS: History obtained from patient caregiver and records. Unable to obtain history from patient secondary nonverbal state. Medical history significant for recurrent seizures, cerebral palsy, aspiration risk, chronic anemia (baseline hemoglobin of 13), OCD as per records, Testicular cancer right status post surgery, mental retardation as per records partial trisomy as per records Recent confinement in 2013 for right hip fracture sp surgery. As per caregiver's notes, yesterday the patient had 6 seizures despite compliance with AED regimen. Normal frequency usually once a week. Noted to be febrile. Urine was foul smelling. No cough symptoms. Patient brought to the Emergency Room. Given Ativan in the ER. Physical Exam (per Admitting): PHYSICAL EXAMINATION: VITAL SIGNS: Blood pressure was noted to be 109/56, pulse rate 69, RR 20, T 38 sats 95 on room air. GENERAL: Noted to be nonverbal and follows some commands. No respiratory distress, somewhat lethargic. SKIN: Pallor and warm. HEENT: Pale palpebral conjuctivae. No ptosis, Dry mucosa. NECK: Supple. No tenderness. CHEST: Decreased effort. No tenderness. HEART: Regular rate and rhythm, no murmur. ABDOMEN: Soft, nontender. EXTREMITIES: No overt edema, no tendernes, chronic spastic contractures of the extremities. NEUROLOGIC: Nonverbal and lethargic. Gait and stance not assessed. Hospital Course Recurrent seizures: Likely Induced by fever likely viral etiology H/O MR, Cerebral Palsy Presented with fever, recurrent seizures CXR:No acute cardiopulmonary process UA: ? contamination Continue Vimpat dose increased from 100 mg BID to 200 mg BID Continue Phenobarbital, Lamictal Lamictal levels:pending Phenobarbital levels:29.6 seizure/Aspiration precautions TSH:normal Appreciate Neurology Input Needs follow up with Neurology as outpatient Abnormal UA: Ruled out UTI Blood culture: No growth to date Urine culture:No growth DC Azactam DC IV fluids Normal lactate levels H/O chronic constipation: Continue bowel regimen H/O Testicular cancer S/P surgery H/O Mental retardation H/O cerebral palsy stable Chronic anemia: Monitor Hb No bleeding issues DVT Px: Lovenox SQ Code Status: DNR as per conversation with patient's mother, Mrs. Zaida Merchant. Consulted Palliative Care to address goals of care /Code Status Disposition: Plan to discharge to care home today Contact Number for Inspector Fuel Hose:[phone] Follow up with your Primary Care Physician on 05/11/17 at 10:55am Follow up with your Neurologist in 2-4 weeks Medication Changes: Your Vimpat dose is increased from 100 mg BID to 200 mg BID Other Instructions: Seek immediate medical attention if your symptoms reoccur or worsen Follow aspiration precautions: Purred diet, Moist Total time spent on discharge = 35 minutes This includes examination of the patient, discharge planning, medication reconciliation, and communication with other providers. Discharge Instructions Discharge Instructions Date of Service May 08, 2017. Admission Reason for Admission: Complicated Uti,Seizure Disorder Discharge Discharge Diagnosis / Problem: Seizure disorder Discharge Goals Goal(s): Decrease discomfort, Improve function Activity Recommendations Activity Limitations: resume your previous activity Exercise/Sports Limitations: as tolerated . Instructions / Follow-Up Instructions / Follow-Up Follow up with your Primary Care Physician on 05/11/17 at 10:55am Follow up with your Neurologist in 2-4 weeks Medication Changes: Your Vimpat dose is increased from 100 mg BID to 200 mg BID Other Instructions: continue your home medications at usual doses:phenobarbital 32.4 mg am 64.8 mg pm and Lamictal 400 mg BID Your Lamictal levels are pending. Follow up with your doctor for results Seek immediate medical attention if your symptoms reoccur or worsen Follow aspiration precautions: Purred diet, Moist Current Hospital Diet Patient's current hospital diet: Regular Diet Discharge Diet Recommended Diet: Regular Diet Diet Texture: Pureed (blended smooth) (moist) Pending Studies Studies pending at discharge: yes List of pending studies: Lamictal levels Medical Emergencies . Who to Call and When: Medical Emergencies: If at any time you feel your situation is an emergency, please call 911 immediately. . Non-Emergent Contact Non-Emergency issues call your: Primary Care Provider, Neurologist Call Non-Emergent contact if: you have a fever, your pain is not controlled, your pain is worsening, your pain is unusual for you, your pain is concerning you, you have any medication questions Seek immediate medical attention if your symptoms reoccur or worsen . . "Provider Documentation" section prepared by Andrew Rain. . VTE Core Measure Inpt VTE Proph given/why not?: Enoxaparin (Lovenox)SQ
[2017-05-08 11:07] VITALS: BP 104/54; PULSE 50; TEMP 36.5; O2SAT 96
== END 2017-05-08 12:30 | disposition home or self-care (01) | DRG 101 ==
LOC: EDBD 03:35 → C.EDB 03:36 → C.4E 07:04 → EDBEDREQ 07:36 → ENRESERV 07:47 → C.4E 05-08 05:40
PROVIDERS: ADMIT Internal Medicine; ATTEND Internal Medicine
DX: G40.909 Epilepsy, unspecified, not intractable, without status epilepticus (principal); K59.09 Other constipation; F79 Unspecified intellectual disabilities; G80.9 Cerebral palsy, unspecified; D64.9 Anemia, unspecified; Z66 Do not resuscitate; Z85.47 Personal history of malignant neoplasm of testis

== ENCOUNTER 2017-06-01 16:45 | Inpatient (IN) | payer OTHER ==
[~2017-06-01] VITALS: Ht 172.7 cm; Wt 69.9 kg
[~2017-06-01 16:45] MED LIST changes: +BCTCR/30 EXT; +DIAZEPAM RE; +FIBER PO; +KETO2SHA TOP; -LACO50TA PO; +PHENOBARBITAL 32.4 MG PO; +SKIN120C EXT
[2017-06-01] MEDS ORDERED: SODIUM CHLORIDE 0.9% 1000ML 1,000 ML IV STA (17:04)
[2017-06-01 17:20] LABS: BASO % 0.2 %; BASO ABS # 0.01 K/uL (0-0.2); EOS % 1.3 %; EOS ABS # 0.06 K/uL (0-0.5); HEMATOCRIT 38.2 % (42-52); HEMOGLOBIN 12.9 g/dL (14.0-18.0); IG# 0.01 K/uL (0.00-0.02); LYMPH % 29.1 %; LYMPH ABS # 1.35 K/uL (1.2-3.4); MEAN CORPUSCULAR HEMOGLOBIN 31.1 pg (25-34); MEAN CORPUSCULAR HGB CONC 33.8 g/dl (32-36); MEAN PLATELET VOLUME 10.4 fL (7.4-10.4); MONO % 7.8 %; MONO ABS # 0.36 K/uL (0.11-0.59); NEUT % 61.4 %; NEUT ABS # 2.85 K/uL (1.4-6.5); PLATELET COUNT 201 K/uL (130-400); RED CELL DISTRIBUTION WIDTH CV 13.3 % (11.5-14.5); RED CELL DISTRIBUTION WIDTH SD 44.8 fL (36.4-46.3); WHITE BLOOD COUNT 4.64 K/uL (4.8-10.8)
--- NOTE | 2017-06-01 17:26 | EMERGENCY ROOM VISIT NOTE ---
History Report prepared by Campbell: Narciso An Under the Supervision of: Harrison ValladaresO. First contact with patient: 16:53 Chief Complaint: SEIZURE Stated Complaint: FEVER, SEIZURES History of Present Illness The patient is a 51 year old male who presents to the Emergency Room with complaints of multiple resolved seizures occurring earlier in the day. The first one was 0700, and the last one was around 1540. Per the nursing staff, the patient lives in a usp, and he normally has around 5 seizures per day , and none of his seizures today lasted longer than five minutes. The patient's hands clench up, ad his head turns during his seizures. The patient has a history of MR and aspiration pneumonia, and the usp thinks that he aspirated earlier today. The patient's oxygen saturation was in the high 80s on room air for EMS. History limited secondary to cognitive status. 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 Social History Smoking Status: Never Smoker Alcohol Use: none Drug Use: none Marital Status: single Housing Status: assisted living Occupation Status: disabled Current/Historical Medications Scheduled Calcium Carbonate-Vitamin D (Calcium + D), 1 TAB PO BID Cetirizine (Zyrtec), 10 MG PO DAILY Cholecalciferol (Vitamin D3), 1,000 INTER.UNIT PO BID Clonazepam (Klonopin), 0.25 MG PO HS Docusate Sodium (Stool Softener), 200 MG PO HS Fiber Laxative (Fiber Laxative), 500 MG PO QAM Fiber Laxative (Fiber Laxative), 1,000 MG PO QPM Fluoxetine Hcl (Prozac), 40 MG PO QAM Ketoconazole (Topical) (Ketoconazole), 1 APPLN TOP 2XWK Lacosamide (Vimpat), 200 MG PO BID Lamotrigine (Lamictal), 400 MG PO BID Lorazepam (Ativan), 0.5 MG PO TID Multiple Vitamin (Daily Richi), 1 TAB PO QAM Omeprazole (Prilosec), 20 MG PO QAM Phenobarbital (Phenobarbital), 32.4 MG PO QAM Phenobarbital (Phenobarbital), 64.8 MG PO DAILY@1600 Polyethylene Glycol 3350 (Bulk (Polyethylene Glycol 3350), 17 GM PO DAILY Sennosides-Docusate Sodium (Sennalax-S), 2 TAB PO BID Skin Protectants, Misc. (Hydrocerin), 1 APPLN EXT BID Sorbitol (Laxative) (Sorbitol), 20 ML PO DAILY Zonisamide (Zonegran), 300 MG PO HS Scheduled PRN Diazepam (Anticonvulsant) (Diazepam Rectal Gel), 5 MG RE UD PRN for SEIZURE Mupirocin 2% (Bactroban 2%), 1 APPLN EXT UD PRN for skin irritation Allergies Coded Allergies: Acyclovir (Verified Allergy, Unknown, 05/06/17) Benztropine (Verified Allergy, Unknown, 05/06/17) Cephalosporins (Verified Allergy, Unknown, CEPHALEXIN, 05/06/17) Erythromycin (Verified Allergy, Unknown, 05/06/17) Neomycin (Verified Allergy, Unknown, unknown, 05/06/17) Physical Exam Vital Signs Date Time Temp Pulse Resp B/P (MAP) Pulse Ox O2 Delivery O2 Flow Rate FiO2 06/01/17 21:04 71 06/01/17 20:39 65 20 123/51 95 Room Air 06/01/17 18:40 68 16 134/63 64 Room Air 06/01/17 17:21 69 06/01/17 16:57 37.3 74 14 106/72 93 Room Air 06/01/17 16:57 93 Room Air Physical Exam GENERAL: alert, well appearing, well nourished, no distress, non-toxic EYE EXAM: normal conjunctiva, PERRL and EOM's grossly intact OROPHARYNX: unable to view. NECK: supple, no nuchal rigidity, no adenopathy, non-tender LUNGS: Coarse breath sounds bilaterally. Slight rhonchi at the right base. Normal chest wall mechanics HEART: no murmurs, S1 normal and S2 normal ABDOMEN: abdomen soft, non-tender, normo-active bowel sounds, no masses, no rebound or guarding. BACK: Back is symmetrical on inspection and there is no deformity, no midline tenderness, no CVA tenderness. SKIN: no rashes and no bruising UPPER EXTREMITIES: upper extremities are atrophied LOWER EXTREMITIES: Evidence of contracture bilaterally. Normal pulses bilaterally. No edema. NEURO EXAM: Patient awake and alert. Unable to otherwise assess due to cognitive status Medical Decision & Procedures ER Provider Diagnostic Interpretation: Radiology results have been interpreted by the radiologist and reviewed by me. CHEST ONE VIEW PORTABLE CLINICAL HISTORY: Cough. COMPARISON STUDY: Chest radiograph May 06, 2017. FINDINGS: Evaluation is suboptimal due to difficulty positioning. S-shaped scoliosis of the thoracolumbar spine is noted. There is no pneumothorax or pleural effusion. Mild left basilar opacity favors atelectasis. There is no consolidation to suggest pneumonia. Cardiomediastinal silhouette is stable with mild cardiomegaly. There are old bilateral rib fractures. IMPRESSION: 1. No acute cardiopulmonary findings. 2. Mild left basilar opacity which favors atelectasis. 3. Stable cardiomegaly without evidence for pulmonary edema. Electronically signed by: Truong Romo M.D. 06/01/2017 5:34 PM Dictated Date/Time: 06/01/2017 5:[address] ANGIOGRAPHY OF THE CHEST, PULMONARY EMBOLUS PROTOCOL CLINICAL HISTORY: Fever. Cough. COMPARISON STUDY: Chest CT April 11, 2011 and chest radiograph June 01, 2017. TECHNIQUE: Following IV administration of 111 mL of Optiray-320, helical axial images of the chest were obtained utilizing the pulmonary embolus protocol. Maximal intensity projections and sagittal and coronal reformats were viewed on an independent 3D workstation. IV contrast was administered without complication. A dose lowering technique was utilized adhering to the principles of ALARA. CT DOSE: 463.35 mGy.cm FINDINGS: No pulmonary emboli are identified. There is no evidence of thoracic aortic dissection. The heart is mildly enlarged. There is no pericardial effusion. There are no enlarged thoracic lymph nodes. There are secretions within the trachea and bilateral mainstem bronchi. Groundglass and linear opacities within lungs favor atelectasis. There is no consolidation to strongly suggest pneumonia. No pneumothorax or pleural effusion is present. Scoliosis is noted. Upper abdomen is unremarkable. IMPRESSION: 1. No pulmonary emboli identified. 2. Moderate secretions within the trachea and mainstem bronchi. 3. Linear and groundglass opacities within lungs which favor atelectasis. An infectious process could appear similar although is considered less likely. No consolidation to suggest pneumonia. Electronically signed by: Truong Romo M.D. 06/01/2017 6:42 PM Dictated Date/Time: 06/01/2017 6:[address] OF THE HEAD WITHOUT CONTRAST CLINICAL HISTORY: Change in mental status. Seizure. Fever. COMPARISON STUDY: Head CT October 25, 2016. CT DOSE: 761.69 mGy.cm TECHNIQUE: Helical axial images of the head were obtained without IV contrast. Automated exposure control was utilized for the study. A dose lowering technique was utilized adhering to the principles of ALARA. FINDINGS: No acute intracranial hemorrhage, midline shift or mass effect is present. Ventricular system is normal. Basilar cisterns are patent. There are no extra-axial collections. Encephalomalacia within left frontal lobe is unchanged. Contrast within the visualized vascular structures is from recent contrast-enhanced CT. Cerebellar atrophy is again noted. There are no findings to suggest acute dural sinus thrombosis or acute territorial infarct. There is moderate left frontal sinus mucosal thickening. There is no calvarial fracture. Patient is rotated. IMPRESSION: 1. No acute intracranial findings. No change in appearance of the brain. 2. Moderate left frontal sinus mucosal thickening. Electronically signed by: Truong Romo M.D. 06/01/2017 8:04 PM Dictated Date/Time: 06/01/2017 8:01 PM Laboratory Results 06/01/17 16:57 Test 06/01/17 16:57 06/01/17 17:00 06/01/17 17:33 06/01/17 19:50 Prothrombin Time 10.5 SECONDS (9.0-12.0) Prothromb Time International Ratio 1.0 (0.9-1.1) Anion Gap 9.0 mmol/L (3-11) Est Creatinine Clear Calc Drug Dose 118.6 ml/min Estimated GFR () 126.1 Estimated GFR (Non- 108.8 BUN/Creatinine Ratio 22.1 (10-20) Calcium Level 8.6 mg/dl (8.5-10.1) Phosphorus Level 2.1 mg/dl (2.5-4.9) Magnesium Level 1.8 mg/dl (1.8-2.4) Total Bilirubin 0.3 mg/dl (0.2-1) Aspartate Amino Transf (AST/SGOT) 11 U/L (15-37) Alanine Aminotransferase (ALT/SGPT) 21 U/L (12-78) Alkaline Phosphatase 111 U/L (45-117) Total Protein 6.2 gm/dl (6.4-8.2) Albumin 3.2 gm/dl (3.4-5.0) Globulin 3.0 gm/dl (2.5-4.0) Albumin/Globulin Ratio 1.1 (0.9-2) Thyroid Stimulating Hormone (TSH) 2.700 uIu/ml (0.300-4.500) Phenobarbital Level 30.3 mcg/mL (15.0-40.0) Influenza Type A (RT-PCR) Neg for Influ A (NEG) Influenza Type A Antigen Neg for Influ A (NEG) Influenza Type B Antigen Neg for Influ B (NEG) Influenza Type B (RT-PCR) Neg for Influ B (NEG) Bedside Lactic Acid Venous 0.47 mmol/L (0.90-1.70) Urine Color YELLOW Urine Appearance TURBID (CLEAR) Urine pH 8.5 (4.5-7.5) Urine Specific [place] 1.033 (1.000-1.030) Urine Protein NEG (NEG) Urine Glucose (UA) NEG (NEG) Urine Ketones NEG (NEG) Urine Occult Blood NEG (NEG) Urine Nitrite NEG (NEG) Urine Bilirubin NEG (NEG) Urine Urobilinogen NEG (NEG) Urine Leukocyte Esterase NEG (NEG) Urine WBC (Auto) 1-5 /hpf (0-5) Urine RBC (Auto) 0-4 /hpf (0-4) Urine Hyaline Casts (Auto) 1-5 /lpf (0-5) Urine Epithelial Cells (Auto) 0-5 /lpf (0-5) Urine Bacteria (Auto) NEG (NEG) Test 06/01/17 21:02 Arterial Blood pH 7.41 (7.35-7.45) Arterial Blood Partial Pressure CO2 37 mmHg (35-46) Arterial Blood Partial Pressure O2 77 mm/Hg (80-95) Arterial Blood HCO3 23 mmol/L (19-24) Arterial Blood Oxygen Saturation 95.5 % (90-95) Arterial Blood Base Excess -1.5 mEq/L (-9-1.8) Arterial Blood Gas Delivery ROOM AIR Jorge Alberto Test POS (POS) Laboratory results per my review. Medications Administered Medications (Trade) Dose Ordered Sig/Porsha Route Start Time Stop Time Status Last Admin Dose Admin Sodium Chloride 1,000 ml @ 250 mls/hr Q4H STAT IV 06/01/17 17:04 06/01/17 21:03 DC 06/01/17 17:29 250 MLS/HR Ampicillin Sodium/ Sulbactam Sodium 3000 mg/Sodium Chloride 108 ml @ 200 mls/hr NOW STAT IV 06/01/17 20:36 06/01/17 21:08 DC 06/01/17 20:36 200 MLS/HR Albuterol/ Ipratropium (Duoneb) 3 ml ONE ONCE INH 06/01/17 20:36 06/01/17 20:38 DC 06/01/17 20:44 3 ML ECG Per My Interpretation Indication: other (seizure) Rate (beats per minute): 68 Rhythm: sinus rhythm Findings: other (Poor quality tracing secondary to patient's tremors. Normal axis. Normal intervals. No grossly apparent ST elevation) ED Course 1652: The patient was evaluated in room A3. A complete history and physical exam was performed. 4: Sodium Chloride 1000 ml @ 250 mls/hr IV 1751: I reevaluated the patient, and I talked to his care takers. They state that he has variability to his seizures, though 4-5 in a day is a lot. He has not had any recent medication changes and no close contacts with anyone that is overtly ill. They say that when he has this many seizures in a day, then it usually indicates and infection. They have noticed a seasonality to his seizures , and he has more over the winter. 1858: I reassessed the patient, and I talked to the caregivers. They state that he is not yet back to his normal self. 2007: I reevaluated the patient, and the caretakers state that the patient is still not acting normally. 2017: I reviewed the patient's case with Dr. Charlene Trinhist. He will evaluate the patient for further management. 2041: I discussed the patient's case with Dr. Leo Merritt Neurology Medical Decision Differential diagnosis: Etiologies such as metabolic, infection, hypoglycemia, electrolyte abnormalities , cardiac sources, intracerebral event, toxicologic, neurologic, as well as others were entertained. Patient from a usp with a history of EMR and unable to provide any additional history. Caretakers from the home state that patient had a poor appetite and decreased energy levels today which is unusual for him and usually suggest he is developing an infection. Upon hearing that he had a worsening cough and "low-grade fever" at the usp, he was sent in by EMS. EMS reported low oxygen saturations prior to arrival, however number noted here. Patient placed on nasal cannula as a precaution initially, and was afebrile on arrival. Chest x-ray initially negative, however given increased suspicion for possible aspiration and prior history of the same, a CT of the chest was also performed. No evidence of pneumonia was noted, and no other source of infection found. Patient with no recurrent seizures while here. Unclear patient is just having a prolonged postictal state or is fatigue due to the increased frequency of seizures today. Staff states the patient typically has increased seizures when he has an infection. Case discussed with neurology after discussion with hospitalist as a precaution. They advised not changing patient's antiepileptic regimen at this time. Did not feel he needed continuous EEG monitoring. Patient's vital signs here otherwise stable. Medication Reconcilliation Current Medication List: was personally reviewed by me Blood Pressure Screening Patient's blood pressure: Normal blood pressure Consults Time Called: 2014 Consulting Physician: [facility] Returned Call: 2016 I reviewed the patient's case with Dr. Charlene Grace. He will evaluate the patient for further management. Additional Consults: Time Called: 2039 Consulted Physician: Dr. Leo Merritt Neurology Returned Call: 2041 Additional Comments: I discussed the patient's case with Dr. Bailey - Neurology Impression Primary Impression: Altered mental status Additional Impressions: Recurrent seizures Developmental delay Scribe Attestation The scribe's documentation has been prepared under my direction and personally reviewed by me in its entirety. I confirm that the note above accurately reflects all work, treatment, procedures, and medical decision making performed by me. Departure Information Dispostion Being Evaluated By Hospitalist Referrals Soila Morales D.O. (PCP) Patient Instructions My [facility] Health Problem Qualifiers Primary Impression: Altered mental status Altered mental status type: unspecified Qualified Codes: R41.82 - Altered mental status, unspecified
--- NOTE | 2017-06-01 17:36 | DIAGNOSTIC IMAGING REPORT ---
CHEST ONE VIEW PORTABLE CLINICAL HISTORY: Cough. COMPARISON STUDY: Chest radiograph May 06, 2017. FINDINGS: Evaluation is suboptimal due to difficulty positioning. S-shaped scoliosis of the thoracolumbar spine is noted. There is no pneumothorax or pleural effusion. Mild left basilar opacity favors atelectasis. There is no consolidation to suggest pneumonia. Cardiomediastinal silhouette is stable with mild cardiomegaly. There are old bilateral rib fractures. IMPRESSION: 1. No acute cardiopulmonary findings. 2. Mild left basilar opacity which favors atelectasis. 3. Stable cardiomegaly without evidence for pulmonary edema. Electronically signed by: Truong Romo M.D. 06/01/2017 5:34 PM Dictated Date/Time: 06/01/2017 5:33 PM
[2017-06-01 18:01] LABS: ALBUMIN 3.2 gm/dl (3.4-5.0); CALCIUM 8.6 mg/dl (8.5-10.1); CREATININE 0.72 mg/dl (0.60-1.40)
[2017-06-01 18:06] LABS: INFLUENZA B ANTIGEN Neg for Influ B (NEG)
[2017-06-01 18:12] LABS: PHOSPHORUS 2.1 mg/dl (2.5-4.9); TOTAL PROTEIN 6.2 gm/dl (6.4-8.2)
[2017-06-01] MEDS ORDERED: OPTIRAY 320 IV PRN (18:30)
[2017-06-01] MEDS ORDERED: CETI10TA84 PO (18:35)
[2017-06-01] MEDS ORDERED: PHEN64.8 PO ×2 (18:35)
[2017-06-01] MEDS ORDERED: DIAZ10GE2 RE (18:35)
[2017-06-01] MEDS ORDERED: SENN1TAB86 PO (18:35)
[2017-06-01] MEDS ORDERED: LACO200T PO (18:43)
--- NOTE | 2017-06-01 18:44 | DIAGNOSTIC IMAGING REPORT ---
CT ANGIOGRAPHY OF THE CHEST, PULMONARY EMBOLUS PROTOCOL CLINICAL HISTORY: Fever. Cough. COMPARISON STUDY: Chest CT April 11, 2011 and chest radiograph June 01, 2017. TECHNIQUE: Following IV administration of 111 mL of Optiray-320, helical axial images of the chest were obtained utilizing the pulmonary embolus protocol. Maximal intensity projections and sagittal and coronal reformats were viewed on an independent 3D workstation. IV contrast was administered without complication. A dose lowering technique was utilized adhering to the principles of ALARA. CT DOSE: 463.35 mGy.cm FINDINGS: No pulmonary emboli are identified. There is no evidence of thoracic aortic dissection. The heart is mildly enlarged. There is no pericardial effusion. There are no enlarged thoracic lymph nodes. There are secretions within the trachea and bilateral mainstem bronchi. Groundglass and linear opacities within lungs favor atelectasis. There is no consolidation to strongly suggest pneumonia. No pneumothorax or pleural effusion is present. Scoliosis is noted. Upper abdomen is unremarkable. IMPRESSION: 1. No pulmonary emboli identified. 2. Moderate secretions within the trachea and mainstem bronchi. 3. Linear and groundglass opacities within lungs which favor atelectasis. An infectious process could appear similar although is considered less likely. No consolidation to suggest pneumonia. Electronically signed by: Truong Romo M.D. 06/01/2017 6:42 PM Dictated Date/Time: 06/01/2017 6:33 PM
--- NOTE | 2017-06-01 20:05 | DIAGNOSTIC IMAGING REPORT ---
CT OF THE HEAD WITHOUT CONTRAST CLINICAL HISTORY: Change in mental status. Seizure. Fever. COMPARISON STUDY: Head CT October 25, 2016. CT DOSE: 761.69 mGy.cm TECHNIQUE: Helical axial images of the head were obtained without IV contrast. Automated exposure control was utilized for the study. A dose lowering technique was utilized adhering to the principles of ALARA. FINDINGS: No acute intracranial hemorrhage, midline shift or mass effect is present. Ventricular system is normal. Basilar cisterns are patent. There are no extra-axial collections. Encephalomalacia within left frontal lobe is unchanged. Contrast within the visualized vascular structures is from recent contrast-enhanced CT. Cerebellar atrophy is again noted. There are no findings to suggest acute dural sinus thrombosis or acute territorial infarct. There is moderate left frontal sinus mucosal thickening. There is no calvarial fracture. Patient is rotated. IMPRESSION: 1. No acute intracranial findings. No change in appearance of the brain. 2. Moderate left frontal sinus mucosal thickening. Electronically signed by: Truong Romo M.D. 06/01/2017 8:04 PM Dictated Date/Time: 06/01/2017 8:01 PM
[2017-06-01] MEDS ORDERED: AMPICILLIN/SULBACTAM SOD INJ 3,000 MG in SODIUM CHLORIDE 0.9% 100ML 100 ML IV STA (20:36)
[2017-06-01] MEDS ORDERED: ALBUT/IPRATROP 3MG/0.5MG NEB 3 ML VIAL INH ONE (20:36)
[2017-06-01] MEDS ORDERED: CLONAZEPAM 0.5 MG TAB PO STA (22:25)
[2017-06-01] MEDS ORDERED: LACOSAMIDE 50 MG TAB PO STA (22:26)
[2017-06-01] MEDS ORDERED: ACETAMINOPHEN 325 MG TAB PO PRN (23:00)
[2017-06-01] MEDS ORDERED: NITROGLYCERIN 0.4 MG SL PER TAB CHARGE SL PRN (23:00)
[2017-06-01] MEDS ORDERED: PROCHLORPERAZINE INJ 5 MG in SYRINGE 4 ML IV PRN (23:00)
[2017-06-01] MEDS ORDERED: LORAZEPAM INJ 1 MG in SYRINGE 0.5 ML IV PRN (23:00)
[2017-06-01] MEDS ORDERED: ACETAMINOPHEN IV 650 MG in EMPTY BAG 0 ML IV PRN (23:00)
[2017-06-01] MEDS ORDERED: LORAZEPAM 2 MG/ML 1 ML VIAL IV STA (23:08)
[2017-06-01] MEDS ORDERED: PHENOBARBITAL 32.4 MG TAB PO STA (23:13)
[2017-06-01] MEDS ORDERED: AMPICILLIN/SULBACTAM CONSULT ACTIVE PRN (23:15)
[2017-06-01] MEDS ORDERED: GADAVIST IV PRN (23:45)
[2017-06-02] VITALS (9 sets, daily range): BP systolic 90–116; BP diastolic 46–64; PULSE 41–79; TEMP 36.5–37.1; O2SAT 93–99; Ht 172.7 cm; Wt 69.9 kg
[2017-06-02] MEDS ORDERED: SODIUM CHLORIDE 0.9% 1000ML 1,000 ML IV SCH (00:15)
[2017-06-02] MEDS ORDERED: LORAZEPAM INJ 0.5 MG in SYRINGE 0.75 ML IV ONE (01:00)
[2017-06-02] MEDS ORDERED: CLONAZEPAM 0.5 MG TAB PO STA (01:50)
[2017-06-02] MEDS: AMPICILLIN/SULBACTAM SOD INJ 3,000 MG in SODIUM CHLORIDE 0.9% 100ML 100 ML IV SCH ×4 (04:13→22:08)
[2017-06-02 05:51] LABS: INFLUENZA A PCR Neg for Influ A (NEG); INFLUENZA B PCR Neg for Influ B (NEG)
[2017-06-02 06:57] LABS: BASO % 0.2 %; BASO ABS # 0.01 K/uL (0-0.2); EOS % 0.9 %; EOS ABS # 0.06 K/uL (0-0.5); HEMATOCRIT 38.7 % (42-52); IG# 0.01 K/uL (0.00-0.02); LYMPH % 28.9 %; LYMPH ABS # 1.86 K/uL (1.2-3.4); MEAN CELL VOLUME 92.8 fL (80-100); MEAN CORPUSCULAR HEMOGLOBIN 31.2 pg (25-34); MEAN CORPUSCULAR HGB CONC 33.6 g/dl (32-36); MEAN PLATELET VOLUME 10.4 fL (7.4-10.4); MONO % 9.5 %; MONO ABS # 0.61 K/uL (0.11-0.59); NEUT % 60.3 %; NEUT ABS # 3.89 K/uL (1.4-6.5); PLATELET COUNT 170 K/uL (130-400); RED CELL DISTRIBUTION WIDTH CV 13.1 % (11.5-14.5); RED CELL DISTRIBUTION WIDTH SD 44.6 fL (36.4-46.3); WHITE BLOOD COUNT 6.44 K/uL (4.8-10.8)
--- NOTE | 2017-06-02 06:58 | DIAGNOSTIC IMAGING REPORT ---
Brain MRI WITH AND WITHOUT CONTRAST HISTORY: L sided weakness, recurrent sz TECHNIQUE: Multiplanar multisequence MRI of the brain was performed both before and after the intravenous administration of contrast. COMPARISON STUDY: Head CT 06/01/2017. FINDINGS: Partial opacification of the left frontal sinus and mild mucosal thickening within the left ethmoid air cells. Small focus of encephalomalacia within the left frontal lobe consistent with an old infarct. Motion artifact results in suboptimal evaluation. No areas of restricted diffusion to suggest acute infarction. Moderate cerebellar atrophy. No definite mass, hematoma, midline shift. The mastoid air cells are clear. The major vascular flow-voids at the skull base are well-maintained. No abnormal enhancement. IMPRESSION: 1. No acute intracranial abnormality. 2. 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 3. Partial opacification the left frontal sinus unchanged. Electronically signed by: Oumar Mendoza M.D. 06/02/2017 6:57 AM Dictated Date/Time: 06/02/2017 6:53 AM
--- NOTE | 2017-06-02 07:02 | DIAGNOSTIC IMAGING REPORT ---
Brain MRA HISTORY: Left-sided weakness. TECHNIQUE: 3-D [id number] MRA of the brain was performed without contrast. COMPARISON STUDY: None. FINDINGS: Motion artifact most pronounced at the carotid siphons and mid basilar artery. However, the intracranial internal carotid arteries, distal vertebral arteries, and basilar artery appear patent. There is no significant stenosis, occlusion, or aneurysm seen within the bilateral ACAs, MCAs, or supervisor twisting department. IMPRESSION: Motion artifact. No significant stenosis, occlusion, or aneurysm within the [place]. Electronically signed by: Oumar Mendoza M.D. 06/02/2017 7:00 AM Dictated Date/Time: 06/02/2017 6:57 AM
--- NOTE | 2017-06-02 07:15 | HISTORY & PHYSICAL EXAMINATION ---
DATE OF ADMISSION: 06/01/2017 PRIMARY CARE DOCTOR: Dr. Morales. CHIEF COMPLAINT: Seizures. HISTORY OF PRESENT ILLNESS: History obtained from the patient's caregivers, records. Limited history obtained patient secondary to nonverbal state. Medical history significant for seizure disorder, cerebral palsy, aspiration risk, chronic anemia (baseline hemoglobin of 13), OCD as per records, testicular cancer sp surgery, mental retardation, partial trisomy as per records. Recent confinement, last month for recurrent seizures attributed to possible UTI. Vimpat dose increased. Yesterday, the patient noted low-grade fever, noted to be coughing, possible aspiration. Five seizures, one after other, as per caregiver, unusual. Patient brought to the Emergency Room. Transient hypoxemia noted. At the Emergency Room, the patient noted to look more on the left with some left side weaker than usual as per caregivers. MEDICAL HISTORY: As above. SURGERIES: He has had orchiectomy surgery. HOME MEDICATIONS: Include Ativan, multivitamins, Prilosec, phenobarbital, polyethylene glycol, Senokot-S, sorbitol, Zonegran, Prozac, fiber, ketoconazole, Vimpat, Lamictal, calcium D, cetirizine, Klonopin, stool softener, and diazepam p.r.n. ALLERGIES: ALLERGIC TO BENZTROPINE, ERYTHROMYCIN, NEOMYCIN, ACYCLOVIR, AND CEPHALOSPORIN. FAMILY HISTORY: Could not be obtained. PERSONAL AND SOCIAL HISTORY: Nonsmoker. senior living resident. REVIEW OF SYSTEMS: Could not be obtained. PHYSICAL EXAMINATION: VITAL SIGNS: Blood pressure 106/72, pulse rate 74, RR 14, temperature 36, and sats 92 on room air. GENERAL: Noted to be slightly uncomfortable, no respiratory distress. SKIN: Pallor, warm. HEENT: Pale palpebral conjunctiva, No ptosis. Dry mucosa. Tremulous mouth motion NECK: Supple, nontender. CHEST: Decreased effort. No tenderness. HEART: Regular. No murmur. ABDOMEN: Soft, nontender. EXTREMITIES: No edema. Chronic spastic contractures. NEUROLOGIC: Nonverbal, question of decreased strength, left upper extremity. No nuchal rigidity. LABORATORY DATA: Hemoglobin was noted to be 12.9, hematocrit 38.2, white blood cells 4.6, and platelet noted to be 201. Sodium 140, potassium 3.8, CO2 of 24, BUN 16, creatinine 0.7, glucose 96. Phenobarbital level 13.3. IMAGING STUDIES: CTA, moderate secretions, trachea, bronchi, atelectasis. No PE. CT head, no acute pathology, sinusitis. ASSESSMENT: 1. Recurrent seizures 2. Left-sided weakness. 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 3. aspiration pneumonitis. No sepsis. aspiration risk. 4. Chronic anemia, hemoglobin baseline. 5. Mental retardation as per records. 6. Testicular cancer status post surgery PLAN: PCU. Neuro checks RE L sided weakness. MRI/MRA of the brain RE recurrent seizures, left-sided weakness. Facilitate home AEDs, Ativan p.r.n., seizure precautions. Neurology consult. RE recurrent seizures (ER provider already Dr. Bailey, neurologist on-call.) Unasyn for aspiration pneumonitis. nebs prn DVT prophylaxis, Lovenox subQ. DNR as per previous directives from mother recent confinement. MTDD
[2017-06-02] MEDS: LORAZEPAM 0.5 MG TAB PO SCH ×3 (08:20→21:09)
[2017-06-02] MEDS: FLUOXETINE HCL 20 MG CAP PO SCH (08:20)
[2017-06-02] MEDS: POLYETHYLENE (MIRALAX) 17 GM PACK PO SCH (08:21)
[2017-06-02] MEDS: LACOSAMIDE 50 MG TAB PO SCH ×2 (08:23→21:10)
[2017-06-02] MEDS: MULTIVITAMIN TAB PO SCH (08:23)
[2017-06-02] MEDS: DOCUSATE SODIUM/SENNA 50/8.6MG TAB PO SCH ×2 (08:23→21:00)
[2017-06-02] MEDS: PANTOprazole SOD 40 MG TAB PO SCH (08:24)
[2017-06-02] MEDS: SORBITOL 70% 30ML UDC PO SCH (08:24)
[2017-06-02] MEDS: ENOXAPARIN 30 MG/0.3 ML SYR SC SCH (08:25)
[2017-06-02] MEDS: PHENOBARBITAL 32.4 MG TAB PO SCH (08:30)
[2017-06-02] MEDS: CETIRIZINE HCL 10 MG TAB PO SCH (08:31)
--- NOTE | 2017-06-02 10:36 | NEUROLOGY CONSULTATION ---
DATE OF CONSULTATION: 06/02/2017 REASON FOR CONSULTATION: Multiple seizures. HISTORY OF PRESENT ILLNESS: The patient is a 51-year-old male with seizure, cerebral palsy, aspiration pneumonia, OCD, partial trisomy who was hospitalized last month due to recurrent seizures, possibly related to UTI at that time and Vimpat dose was increased. Yesterday, the patient was noted to have a low-grade temperature, coughing, had 5 seizures. From my discussion with the Emergency Room, the seizures I believe were brief, but certainly were isolated meaning there was no evidence of status epilepticus. The staff did not need to give him Diastat and the staff was concerned that he was not returning to his baseline as readily as he usually does. It is reported that in the Emergency Room, he "seems" to look more to the left with some left-sided weakness, more so than usual, which is "new." Since the patient has been in the hospital, he had 1 brief seizure recorded by the nurse to be 10-15 seconds long, head to the left, left arm overhead and shaking. 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 An MRA of the head showed motion artifact, no significant stenosis. Chest x-ray, mild left basilar opacity which favors atelectasis, stable cardiomegaly without evidence of pulmonary edema. LABORATORY DATA: White count was 4.64, H&H 12.9/38.2, platelet count 201. Blood gas 7.41/37/77 on room air. Chemistry profile: Sodium 140, potassium 4.0, BUN and creatinine 16 and 0.7, glucose 96; calcium 8.6, phosphorus 2.1, magnesium 1.8. Transaminases normal. TSH 2.7. Urinalysis essentially negative. Toxicology - phenobarbital 30.3. Lamictal pending, negative for H. flu. PAST MEDICAL HISTORY: As above. PAST SURGICAL HISTORY: Orchiectomy. He also has a frontal forehead scar, etiology of which is not known. HOME MEDICATIONS: Calcium, Zyrtec, vitamin D, clonazepam 0.25 at bedtime, Valium rectal gel as needed for seizure, Colace, laxatives, Prozac 40, Vimpat 200 twice a day, Lamictal 400 twice a day, lorazepam 0.5 t.i.d., multiple vitamin; phenobarbital 64.8 at night, 32.4 in the morning; and Zonegran 300 at bedtime. ALLERGIES: BENZTROPINE, ERYTHROMYCIN, NEOMYCIN, ACYCLOVIR AND CEPHALOSPORIN. FAMILY HISTORY: Unobtainable. PERSONAL SOCIAL HISTORY: Nonsmoker. Lives in a skilled nursing. REVIEW OF SYSTEMS: Could not be obtained. PHYSICAL EXAMINATION: VITAL SIGNS: T-max 37.3, lowest recorded pulse was 41 in left finger, current blood pressure 92/53. GENERAL: The patient is awake and alert, follows no commands, although is cooperative. EXTREMITIES: Spontaneously moves his upper extremities. HEENT: His gaze is conjugate and roving. There is no fixed eye deviation. No head deviation. NECK: Supple. There is no evidence of any head trauma. NEUROLOGICAL: He is dysmorphic in appearance. He is quadriparetic, legs greater than arms with increased tone in the lowers. Reflexes are difficult to elicit due to spasticity. At present, he appears to move both arms symmetrically. Sensory, cerebellar not tested. IMPRESSION AND PLAN: This is a patient with a profound intellectual disability and cerebral palsy who has had poor seizure control. 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 He appears to be symmetrically strong at present. I would not recommend any additional vascular workup and provided in the future this occurs again, which may, no additional workup provided the postictal weakness is not particularly protracted. I would not elect to make any changes in his anticonvulsants at present. I think he will continue to be difficult to control and we will need to balance attempted seizure control with medication side effects. I will speak to Dr. Mancera, in the office next week. He may want to give a standing order for days of 3 or more seizures where the dose of Ativan is increased transiently. From my perspective, the patient could be discharged. I realize there may be other medical issues including monitoring a bradycardia and infection. He should see Dr. Mancera in followup.
[2017-06-02] MEDS ORDERED: PHENOBARBITAL 32.4 MG TAB PO SCH (16:00)
[2017-06-02] MEDS ORDERED: SODIUM CHLORIDE 0.9% 1000ML 1,000 ML IV ONE (18:15)
--- NOTE | 2017-06-02 18:24 | Progress Note ---
Internal Med Progress Note Date of Service: Jun 02, 2017. Provider Documentation: SUBJECTIVE: Seen and examined at bedside No apparent Distress Caretakers at bedside Non verbal Television Cameraman informs he doesn't seemed to be at baseline OBJECTIVE: Vital Signs-as noted below General Appearance:Thin, no apparent distress, Non verbal Head: normocephalic, Atraumatic Eyes: normal inspection, EOMI, PERRL Neck: supple, Trachea midline Respiratory/Chest: Normal breath sounds, CTA Cardiovascular: S1, S2, No murmur Abdomen/GI:Soft, Non tender, Bowel sounds present Extremities/Musculoskelatal:normal inspection, no edema Neurologic/Psych:Non verbal, difficult to assess Skin: normal color, warm Lab data as noted below. 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 MRI brain:No acute intracranial abnormality MRA:No significant stenosis, occlusion, or aneurysm within the [place]. Continue Vimpat, Phenobarbital, Lamictal Lamictal levels:pending Phenobarbital levels:30.3 seizure/Aspiration precautions Ativan PRN for seizures TSH:normal Appreciate Neurology Input Possible Aspiration Pneumonitis Continue Unasyn Blood cultures pending Aspiration precautions Speech and swallow eval H/O chronic constipation: Continue bowel regimen H/O Testicular cancer S/P surgery H/O Profound Intellectual disability H/O cerebral palsy monitor Chronic anemia: Monitor Hb No bleeding issues DVT Px: Lovenox SQ Code Status: DNR Disposition: Plan to discharge to senior care when stable Contact Number for Psychologist Military Personnel:[phone] Vital Signs: Date Time Temp Pulse Resp B/P (MAP) Pulse Ox O2 Delivery O2 Flow Rate FiO2 06/02/17 16:00 Room Air 06/02/17 15:24 36.5 76 18 90/52 (65) 97 Room Air 06/02/17 11:53 Room Air 06/02/17 11:52 37.1 79 22 116/62 (80) 93 Room Air 06/02/17 07:54 Room Air 06/02/17 07:51 63 06/02/17 07:01 36.6 41 18 92/53 (66) 95 Room Air 06/02/17 04:20 93 Room Air 06/02/17 04:04 36.6 66 18 104/46 (65) 93 Room Air 06/02/17 01:17 37.0 68 16 111/51 Room Air 06/01/17 22:20 71 21 124/65 94 Room Air 06/01/17 21:04 71 06/01/17 20:39 65 20 123/51 95 Room Air 06/01/17 18:40 68 16 134/63 64 Room Air Lab Results: Results Past 24 Hours Test 06/01/17 19:50 06/01/17 21:02 06/02/17 06:46 06/02/17 14:24 Range/Units Urine Color YELLOW Urine Appearance TURBID CLEAR Urine pH 8.5 4.5-7.5 Urine Specific [place] 1.033 1.000-1.030 Urine Protein NEG NEG Urine Glucose (UA) NEG NEG Urine Ketones NEG NEG Urine Occult Blood NEG NEG Urine Nitrite NEG NEG Urine Bilirubin NEG NEG Urine Urobilinogen NEG NEG Urine Leukocyte Esterase NEG NEG Urine WBC (Auto) 1-5 0-5 /hpf Urine RBC (Auto) 0-4 0-4 /hpf Urine Hyaline Casts (Auto) 1-5 0-5 /lpf Urine Epithelial Cells (Auto) 0-5 0-5 /lpf Urine Bacteria (Auto) NEG NEG Arterial Blood pH 7.41 7.35-7.45 Arterial Blood Partial Pressure CO2 37 35-46 mmHg Arterial Blood Partial Pressure O2 77 80-95 mm/Hg Arterial Blood HCO3 23 19-24 mmol/L Arterial Blood Oxygen Saturation 95.5 90-95 % Arterial Blood Base Excess -1.5 -9-1.8 mEq/L Arterial Blood Gas Delivery ROOM AIR Jorge Alberto Test POS POS White Blood Count 6.44 4.8-10.8 K/uL Red Blood Count 4.17 4.7-6.1 M/uL Hemoglobin 13.0 14.0-18.0 g/dL Hematocrit 38.7 42-52 % Mean Corpuscular Volume 92.8 80-100 fL Mean Corpuscular Hemoglobin 31.2 25-34 pg Mean Corpuscular Hemoglobin Concent 33.6 32-36 g/dl Platelet Count 170 130-400 K/uL Mean Platelet Volume 10.4 7.4-10.4 fL Neutrophils (%) (Auto) 60.3 % Lymphocytes (%) (Auto) 28.9 % Monocytes (%) (Auto) 9.5 % Eosinophils (%) (Auto) 0.9 % Basophils (%) (Auto) 0.2 % Neutrophils # (Auto) 3.89 1.4-6.5 K/uL Lymphocytes # (Auto) 1.86 1.2-3.4 K/uL Monocytes # (Auto) 0.61 0.11-0.59 K/uL Eosinophils # (Auto) 0.06 0-0.5 K/uL Basophils # (Auto) 0.01 0-0.2 K/uL RDW Standard Deviation 44.6 36.4-46.3 fL RDW Coefficient of Variation 13.1 11.5-14.5 % Immature Granulocyte % (Auto) 0.2 % Immature Granulocyte # (Auto) 0.01 0.00-0.02 K/uL Ammonia 37.0 11-32 umol/L
[2017-06-02] MEDS ORDERED: CLONAZEPAM 0.5 MG TAB PO SCH (21:00)
[2017-06-02] MEDS ORDERED: ZONISAMIDE 100 MG PO SCH (21:00)
[2017-06-03] MEDS: AMPICILLIN/SULBACTAM SOD INJ 3,000 MG in SODIUM CHLORIDE 0.9% 100ML 100 ML IV SCH ×2 (03:51→10:22)
[2017-06-03 04:00] VITALS: BP 97/61; PULSE 66; TEMP 36.7; O2SAT 97
[2017-06-03 07:30] LABS: HEMATOCRIT 35.5 % (42-52); MEAN CELL VOLUME 91.7 fL (80-100); MEAN CORPUSCULAR HGB CONC 33.8 g/dl (32-36); MEAN PLATELET VOLUME 10.5 fL (7.4-10.4); PLATELET COUNT 153 K/uL (130-400); RED CELL DISTRIBUTION WIDTH CV 13.3 % (11.5-14.5); RED CELL DISTRIBUTION WIDTH SD 44.3 fL (36.4-46.3); WHITE BLOOD COUNT 4.86 K/uL (4.8-10.8)
[2017-06-03 07:43] VITALS: BP 107/64; PULSE 59; TEMP 36.6; O2SAT 97
[2017-06-03] MEDS: LORAZEPAM 0.5 MG TAB PO SCH (07:59)
[2017-06-03] MEDS: PHENOBARBITAL 32.4 MG TAB PO SCH (07:59)
[2017-06-03] MEDS: LACOSAMIDE 50 MG TAB PO SCH (08:00)
[2017-06-03] MEDS: POLYETHYLENE (MIRALAX) 17 GM PACK PO SCH (08:01)
[2017-06-03] MEDS: SORBITOL 70% 30ML UDC PO SCH (08:01)
[2017-06-03] MEDS: CETIRIZINE HCL 10 MG TAB PO SCH (08:02)
[2017-06-03] MEDS: FLUOXETINE HCL 20 MG CAP PO SCH (08:02)
[2017-06-03] MEDS: MULTIVITAMIN TAB PO SCH (08:02)
[2017-06-03] MEDS: PANTOprazole SOD 40 MG TAB PO SCH (08:03)
[2017-06-03] MEDS: DOCUSATE SODIUM/SENNA 50/8.6MG TAB PO SCH (08:03)
[2017-06-03] MEDS: ENOXAPARIN 30 MG/0.3 ML SYR SC SCH (08:04)
[2017-06-03 08:42] LABS: BLOOD UREA NITROGEN 8 mg/dl (7-18); CALCIUM 8.5 mg/dl (8.5-10.1); CARBON DIOXIDE 24 mmol/L (21-32); CREATININE 0.53 mg/dl (0.60-1.40); GLUCOSE 87 mg/dl (70-99); SODIUM 141 mmol/L (136-145)
--- NOTE | 2017-06-03 10:47 | Progress Note ---
Internal Med Progress Note Date of Service: Jun 03, 2017. Provider Documentation: SUBJECTIVE: Seen and examined at bedside Comfortable, lying in bed No seizure activity per staff No apparent Distress Non verbal No family at bedside OBJECTIVE: Vital Signs-as noted below General Appearance:Thin, no apparent distress, Non verbal Head: normocephalic, Atraumatic Eyes: normal inspection, EOMI, PERRL Neck: supple, Trachea midline Respiratory/Chest: Normal breath sounds, CTA Cardiovascular: S1, S2, No murmur Abdomen/GI:Soft, Non tender, Bowel sounds present Extremities/Musculoskelatal:normal inspection, no edema Neurologic/Psych:Non verbal, difficult to assess Skin: normal color, warm Lab data as noted below. 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 MRI brain:No acute intracranial abnormality MRA:No significant stenosis, occlusion, or aneurysm within the [place] of [place]. Continue Vimpat, Phenobarbital, Lamictal, Zonisamide, Ativan, (Vimpat dose increased to 200mg BID during last admission) Lamictal levels:pending Phenobarbital levels:30.3 seizure/Aspiration precautions Ativan PRN for seizures TSH:normal Discussed with Neurology Dr Dorantes on 06/03/17 Needs follow up with Neurology as outpatient Possible Aspiration Pneumonitis Continue Unasyn>> PO Augmentin Blood cultures: No growth to date Procalcitonin, lactate normal Aspiration precautions Speech and swallow eval H/O chronic constipation: Continue bowel regimen H/O Testicular cancer S/P surgery H/O Profound Intellectual disability H/O cerebral palsy monitor Chronic anemia: Monitor Hb No bleeding issues DVT Px: Lovenox SQ Code Status: DNR Disposition: Plan to discharge back to [facility] today Contact Number for Labeling Associate:[phone] Follow up with for Primary Care in 1 week Follow up with your Neurologist tomorrow Jun 04, 2017 at 11:00am Your Lamictal levels are pending. Follow up with your Neurologist with results Complete the antibiotic course as prescribed Seek immediate medical attention if your symptoms reoccur or worsen Vital Signs: Date Time Temp Pulse Resp B/P (MAP) Pulse Ox O2 Delivery O2 Flow Rate FiO2 06/03/17 08:00 Room Air 06/03/17 07:43 36.6 59 18 107/64 (78) 97 Room Air 06/03/17 04:00 Room Air 06/03/17 04:00 36.7 66 18 97/61 (73) 97 Room Air 06/03/17 00:00 Room Air 06/02/17 23:33 36.8 72 18 115/64 (81) 95 Room Air 06/02/17 20:00 Room Air 06/02/17 19:14 37.0 71 18 93/56 (68) 99 Room Air 06/02/17 16:00 Room Air 06/02/17 15:24 36.5 76 18 90/52 (65) 97 Room Air 06/02/17 11:53 Room Air 06/02/17 11:52 37.1 79 22 116/62 (80) 93 Room Air Lab Results: Results Past 24 Hours Test 06/02/17 14:24 06/03/17 07:13 Range/Units Ammonia 37.0 11-32 umol/L White Blood Count 4.86 4.8-10.8 K/uL Red Blood Count 3.87 4.7-6.1 M/uL Hemoglobin 12.0 14.0-18.0 g/dL Hematocrit 35.5 42-52 % Mean Corpuscular Volume 91.7 80-100 fL Mean Corpuscular Hemoglobin 31.0 25-34 pg Mean Corpuscular Hemoglobin Concent 33.8 32-36 g/dl RDW Standard Deviation 44.3 36.4-46.3 fL RDW Coefficient of Variation 13.3 11.5-14.5 % Platelet Count 153 130-400 K/uL Mean Platelet Volume 10.5 7.4-10.4 fL Sodium Level 141 136-145 mmol/L Potassium Level 3.5-5.1 mmol/L Chloride Level 108 98-107 mmol/L Carbon Dioxide Level 24 21-32 mmol/L Anion Gap 9.0 3-11 mmol/L Blood Urea Nitrogen 8 7-18 mg/dl Creatinine 0.53 0.60-1.40 mg/dl Est Creatinine Clear Calc Drug Dose 161.3 ml/min Estimated GFR () 143.0 Estimated GFR (Non- 123.4 BUN/Creatinine Ratio 14.6 10-20 Random Glucose 87 70-99 mg/dl Lactic Acid Level 0.5 0.4-2.0 mmol/L Calcium Level 8.5 8.5-10.1 mg/dl Magnesium Level 1.8-2.4 mg/dl Procalcitonin < 0.05 0-0.5 ng/ml
[2017-06-03] MEDS ORDERED: AMOX1TAB42 PO (10:54)
--- NOTE | 2017-06-03 10:57 | Discharge Instructions ---
Discharge Instructions Date of Service Jun 03, 2017. Admission Reason for Admission: Left-Sided Weakness, Recurrent Seizures Discharge Discharge Diagnosis / Problem: Recurrent Seizures Discharge Goals Goal(s): Decrease discomfort, Improve function Activity Recommendations Activity Limitations: resume your previous activity Exercise/Sports Limitations: as tolerated . Instructions / Follow-Up Instructions / Follow-Up Follow up with for Primary Care in 1 week Follow up with your Neurologist tomorrow Jun 04, 2017 at 11:00am Your Lamictal levels are pending. Follow up with your Neurologist with results Complete the antibiotic course as prescribed Seek immediate medical attention if your symptoms reoccur or worsen Current Hospital Diet Patient's current hospital diet: AHA Diet (Heart Healthy) Discharge Diet Recommended Diet: AHA Diet (Heart Healthy) Diet Texture: Mechanical Soft (ground) Pending Studies Studies pending at discharge: yes List of pending studies: Lamictal levels Medical Emergencies . Who to Call and When: Medical Emergencies: If at any time you feel your situation is an emergency, please call 911 immediately. . Non-Emergent Contact Non-Emergency issues call your: Primary Care Provider, Neurologist Call Non-Emergent contact if: you have a fever, your pain is not controlled, your pain is worsening, your pain is unusual for you, your pain is concerning you, you have any medication questions Seek immediate medical attention if your symptoms reoccur or worsen . . "Provider Documentation" section prepared by Andrew Rain. . VTE Core Measure Inpt VTE Proph given/why not?: Enoxaparin (Lovenox)SQ
--- NOTE | 2017-06-03 11:12 | Discharge Summary ---
Discharge Summary Date of Service Jun 03, 2017. Discharge Summary Admission Date: Jun 01, 2017 at 22:16 Discharge Date: Jun 03, 2017 Discharge Disposition: Personal care Principal Diagnosis: Recurrent Seizures Procedures: Brain MRI: 1. No acute intracranial abnormality. 2. 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 3. Partial opacification the left frontal sinus unchanged. Brain MRA: Motion artifact. No significant stenosis, occlusion, or aneurysm within the [place] of [place]. CTA: 1. No pulmonary emboli identified. 2. Moderate secretions within the trachea and mainstem bronchi. 3. Linear and groundglass opacities within lungs which favor atelectasis. An infectious process could appear similar although is considered less likely. No consolidation to suggest pneumonia. Consultations: Neurology Pending Studies/Follow-Up: Follow up with for Primary Care in 1 week Follow up with your Neurologist tomorrow Jun 04, 2017 at 11:00am Your Lamictal levels are pending. Follow up with your Neurologist with results Complete the antibiotic course as prescribed Seek immediate medical attention if your symptoms reoccur or worsen Medication Reconciliation New Medications: Amoxicillin & Pot Clavulanate (Amoxicillin/Clavulanate P) 1 Tab Tab 500 MG PO BIDM for 3 Days, #6 TAB Continued Medications: Calcium Carbonate-Vitamin D (Calcium + D) 1 Tab Tab 1 TAB PO BID Cetirizine (Zyrtec) 10 Mg Tab 10 MG PO DAILY, TAB Cholecalciferol (Vitamin D3) 1,000 Unit Tab 1000 INTER.UNIT PO BID, TAB Clonazepam (Klonopin) 0.5 Mg Tab 0.25 MG PO HS Diazepam (Anticonvulsant) (Diazepam Rectal Gel) 10 Mg Gel 5 MG RE UD PRN for SEIZURE Docusate Sodium (Stool Softener) 100 Mg Cap 200 MG PO HS HOLD FOR LOOSE STOOLS Fiber Laxative (Fiber Laxative) Ea 500 MG PO QAM Fiber Laxative (Fiber Laxative) Ea 1000 MG PO QPM Fluoxetine Hcl (Prozac) 40 Mg Cap 40 MG PO QAM, CAP Ketoconazole (Topical) (Ketoconazole) 2 % Sha 1 APPLN TOP 2XWK for 30 Days, #120 ML 1 Refill apply to scalp on sun. and with shower Lacosamide (Vimpat) 200 Mg Tab 200 MG PO BID Lamotrigine (Lamictal) 200 Mg Tab 400 MG PO BID, TAB Lorazepam (Ativan) 0.5 Mg Tab 0.5 MG PO TID, TAB Multiple Vitamin (Daily Richi) 1 Tab Tab 1 TAB PO QAM Mupirocin 2% (Bactroban 2%) 30 Gm Cr 1 APPLN EXT UD PRN for skin irritation, TUBE Omeprazole (Prilosec) 20 Mg Capcr 20 MG PO QAM, CAP Phenobarbital (Phenobarbital) 64.8 Mg Tab 32.4 MG PO QAM Phenobarbital (Phenobarbital) 64.8 Mg Tab 64.8 MG PO DAILY@1600 Polyethylene Glycol 3350 (Bulk (Polyethylene Glycol 3350) 1 Pow Pow 17 GM PO DAILY, GM MIX IN 4-8 OUNCES OF LIQUID. HOLD FOR LOOSE STOOLS. Sennosides-Docusate Sodium (Sennalax-S) 1 Tab Tab 2 TAB PO BID Skin Protectants, Misc. (Hydrocerin) 1 Cre Cre 1 APPLN EXT BID Sorbitol (Laxative) (Sorbitol) 70 % Kiesha 20 ML PO DAILY HOLD FOR LOOSE STOOLS Zonisamide (Zonegran) 100 Mg Cap 300 MG PO HS Admission Information HPI (per Admitting provider): CHIEF COMPLAINT: Seizures. HISTORY OF PRESENT ILLNESS: History obtained from the patient's caregivers, records. Limited history obtained patient secondary to nonverbal state. Medical history significant for seizure disorder, cerebral palsy, aspiration risk, chronic anemia (baseline hemoglobin of 13), OCD as per records, testicular cancer sp surgery, mental retardation, partial trisomy as per records. Recent confinement, last month for recurrent seizures attributed to possible UTI. Vimpat dose increased. Yesterday, the patient noted low-grade fever, noted to be coughing, possible aspiration. Five seizures, one after other, as per caregiver, unusual. Patient brought to the Emergency Room. Transient hypoxemia noted. At the Emergency Room, the patient noted to look more on the left with some left side weaker than usual as per caregivers. Physical Exam (per Admitting): PHYSICAL EXAMINATION: VITAL SIGNS: Blood pressure 106/72, pulse rate 74, RR 14, temperature 36, and sats 92 on room air. GENERAL: Noted to be slightly uncomfortable, no respiratory distress. SKIN: Pallor, warm. HEENT: Pale palpebral conjunctiva, No ptosis. Dry mucosa. Tremulous mouth motion NECK: Supple, nontender. CHEST: Decreased effort. No tenderness. HEART: Regular. No murmur. ABDOMEN: Soft, nontender. EXTREMITIES: No edema. Chronic spastic contractures. NEUROLOGIC: Nonverbal, question of decreased strength, left upper extremity. No nuchal rigidity. 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 MRI brain:No acute intracranial abnormality MRA:No significant stenosis, occlusion, or aneurysm within the [place]. Continue Vimpat, Phenobarbital, Lamictal, Zonisamide, Ativan, (Vimpat dose increased to 200mg BID during last admission) Lamictal levels:pending Phenobarbital levels:30.3 seizure/Aspiration precautions Ativan PRN for seizures TSH:normal Discussed with Neurology Dr Dorantes on 06/03/17 Needs follow up with Neurology as outpatient Possible Aspiration Pneumonitis Continue Unasyn>> PO Augmentin Blood cultures: No growth to date Procalcitonin, lactate normal Aspiration precautions Speech and swallow eval H/O chronic constipation: Continue bowel regimen H/O Testicular cancer S/P surgery H/O Profound Intellectual disability H/O cerebral palsy monitor Chronic anemia: Monitor Hb No bleeding issues DVT Px: Lovenox SQ Code Status: DNR Disposition: Plan to discharge back to [facility] today Contact Number for Digital Experience Manager:[phone] Follow up with for Primary Care in 1 week Follow up with your Neurologist tomorrow Jun 04, 2017 at 11:00am Your Lamictal levels are pending. Follow up with your Neurologist with results Complete the antibiotic course as prescribed Seek immediate medical attention if your symptoms reoccur or worsen Total time spent on discharge = 34 minutes This includes examination of the patient, discharge planning, medication reconciliation, and communication with other providers. Discharge Instructions Discharge Instructions Date of Service Jun 03, 2017. Admission Reason for Admission: Left-Sided Weakness, Recurrent Seizures Discharge Discharge Diagnosis / Problem: Recurrent Seizures Discharge Goals Goal(s): Decrease discomfort, Improve function Activity Recommendations Activity Limitations: resume your previous activity Exercise/Sports Limitations: as tolerated . Instructions / Follow-Up Instructions / Follow-Up Follow up with for Primary Care in 1 week Follow up with your Neurologist tomorrow Jun 04, 2017 at 11:00am Your Lamictal levels are pending. Follow up with your Neurologist with results Complete the antibiotic course as prescribed Seek immediate medical attention if your symptoms reoccur or worsen Current Hospital Diet Patient's current hospital diet: AHA Diet (Heart Healthy) Discharge Diet Recommended Diet: AHA Diet (Heart Healthy) Diet Texture: Mechanical Soft (ground) Pending Studies Studies pending at discharge: yes List of pending studies: Lamictal levels Medical Emergencies . Who to Call and When: Medical Emergencies: If at any time you feel your situation is an emergency, please call 911 immediately. . Non-Emergent Contact Non-Emergency issues call your: Primary Care Provider, Neurologist Call Non-Emergent contact if: you have a fever, your pain is not controlled, your pain is worsening, your pain is unusual for you, your pain is concerning you, you have any medication questions Seek immediate medical attention if your symptoms reoccur or worsen . . "Provider Documentation" section prepared by Andrew Rain. . VTE Core Measure Inpt VTE Proph given/why not?: Enoxaparin (Lovenox)SQ <Electronically signed by Andrew Rain MD> Signed: 06/03/17 1057 Signed: The status of this report is Signed * If report status is Draft, the document has not been finalized by the responsible provider.
[2017-06-03 11:32] VITALS: BP 118/67; PULSE 74; TEMP 36.8; O2SAT 97
[2017-06-03 11:34] VITALS: BP 118/67; PULSE 74; TEMP 36.8; O2SAT 97
[2017-06-03] MEDS ORDERED: AMOXICILLIN/CLAVULANATE TAB 500 MG TAB PO SCH (17:00)
--- NOTE | 2017-06-03 20:01 | NEUROLOGY CONSULTATION ---
DATE OF CONSULTATION: 06/03/2017 HISTORY OF PRESENT ILLNESS: I am seeing Mr. Peoples in follow up of mental retardation, cerebral palsy and intractable seizures. He had one either simple partial or complex partial seizure last night, which was brief. I spoke to the nurse that oversees the detention in which he lives, and he indicated to me that perhaps since March, even prior to the escalation of Vimpat, but related to an increase in general seizures. The patient has been not quite himself, so he did not personally attribute that to the increase of Vimpat. He indicates patient had a fairly similar episode 2 years ago, in which Vimpat was reduced in dose because "it was making the phenobarbital level high." We also talked about what was available at the home, in terms of p.r.n. medications and spoke for potentially increasing the p.r.n. oral Ativan on days of seizure. He indicates to me part of the reason why patient was brought in, was because they felt they could not give his medications by mouth. PHYSICAL EXAMINATION: He is awake and alert. His eye movements are conjugate and roving. He is mute, but will give me a high five, used both hands symmetrically. 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 Imaging has been noncontributory in terms of showing a new event. We will make no changes in his meds at present. I will speak to Dr. Mancera about whether or not he would want to give patient sublingual Ativan if he were to have a cluster of seizure and/or the ability to give IM Ativan at the detention. I will have Dr. Mancera's office call patient. RUDY
== END 2017-06-03 13:10 | disposition other institution (70) | DRG 178 ==
LOC: EDBD 16:45 → C.EDA 16:46 → C.MED 22:16 → ENRESERV 22:35
PROVIDERS: ADMIT Internal Medicine; ATTEND Internal Medicine
DX: J69.0 Pneumonitis due to inhalation of food and vomit (principal); F73 Profound intellectual disabilities; G83.84 Todd's paralysis (postepileptic); G80.9 Cerebral palsy, unspecified; G40.909 Epilepsy, unspecified, not intractable, without status epilepticus; K21.9 Gastro-esophageal reflux disease without esophagitis; D64.9 Anemia, unspecified; Z66 Do not resuscitate; Z79.899 Other long term (current) drug therapy; Z88.1 Allergy status to other antibiotic agents

== ENCOUNTER 2017-07-01 16:18 | Inpatient (IN) | payer OTHER ==
[~2017-07-01] VITALS: Ht 172.7 cm; Wt 68.0 kg
[~2017-07-01 16:18] MED LIST changes: +AMOX1TAB42 PO; -CALC625T8 PO; +CETI10TA84 PO; +DIAZ10GE2 RE; -DIAZEPAM RE; -FLUT50SP45; -LACO100T PO; +LACO200T PO; -PHENOBARBITAL 32.4 MG PO
[2017-07-01] MEDS ORDERED: PIPERACILLIN/TAZOBACTAM 4.5 GM/100ML D5W IV STA (16:28)
[2017-07-01] MEDS ORDERED: SODIUM CHLORIDE 0.9% 1000ML 500 ML IV ONE (16:28)
[2017-07-01] MEDS ORDERED: ACETAMINOPHEN 325 MG SUPP PR STA (16:32)
--- NOTE | 2017-07-01 16:51 | EMERGENCY ROOM VISIT NOTE ---
History Report prepared by Campbell: Santosh Marquez Under the Supervision of: Dr. Emmanuel Teague M.D. First contact with patient: 16:23 Chief Complaint: SEIZURE Stated Complaint: AMS/ SEIZURE AT 8:30A THIS MORNING/ SNF History of Present Illness The patient is a 51 year old male who presents to the Emergency Room with complaints of a constant fever that started at 0830 this morning. Per nursing, the patient has a history of seizures and has multiple seizures a day. According to the [facility] staff where he resides, the patient experienced a seizure at 0830 this morning. Nursing reports that the patient has been sleeping since his seizure. After the patient experienced the seizure, the staff took his temperature and found the patient to have a fever of 100.5, which caused them to send the patient to the ED. The patient is accompanied by [facility] staff who states that the patient has not been himself since the seizure this morning. She reports that the patient did have a cough this morning. The HPI is limited due to the patient's nonverbal baseline. Source of History: nursing staff, other ([facility] staff) Onset: 0830 this morning Position: other (global) Quality: other (100.5) Timing: constant Associated Symptoms: + cough Note: Limited due to the patient's nonverbal baseline. Review of Systems The ROS is limited due to the patient's nonverbal baseline. 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 Social History Smoking Status: Never Smoker Alcohol Use: none Drug Use: none Marital Status: single Housing Status: assisted living Occupation Status: disabled Current/Historical Medications Scheduled Calcium Carbonate-Vitamin D (Calcium + D), 1 TAB PO BID Cetirizine (Zyrtec), 10 MG PO DAILY Cholecalciferol (Vitamin D3), 1,000 INTER.UNIT PO BID Clonazepam (Klonopin), 0.25 MG PO HS Docusate Sodium (Stool Softener), 200 MG PO HS Fiber Laxative (Fiber Laxative), 500 MG PO QAM Fiber Laxative (Fiber Laxative), 1,000 MG PO QPM Fluoxetine Hcl (Prozac), 40 MG PO QAM Ketoconazole (Topical) (Ketoconazole), 1 APPLN TOP 2XWK Lacosamide (Vimpat), 200 MG PO BID Lamotrigine (Lamictal), 400 MG PO BID Lorazepam (Ativan), 0.5 MG PO TID Multiple Vitamin (Daily Richi), 1 TAB PO QAM Omeprazole (Prilosec), 20 MG PO QAM Phenobarbital (Phenobarbital), 32.4 MG PO QAM Phenobarbital (Phenobarbital), 64.8 MG PO DAILY@1600 Polyethylene Glycol 3350 (Bulk (Polyethylene Glycol 3350), 17 GM PO DAILY Sennosides-Docusate Sodium (Sennalax-S), 2 TAB PO BID Skin Protectants, Misc. (Hydrocerin), 1 APPLN EXT BID Sorbitol (Laxative) (Sorbitol), 20 ML PO DAILY Zonisamide (Zonegran), 300 MG PO HS Scheduled PRN Diazepam (Anticonvulsant) (Diazepam Rectal Gel), 5 MG RE UD PRN for SEIZURE Mupirocin 2% (Bactroban 2%), 1 APPLN EXT UD PRN for skin irritation Nystatin (Topical) (Nystatin), 1 APPLN TD BID PRN for REDDENED AREAS. Allergies Coded Allergies: Acyclovir (Verified Allergy, Unknown, 07/01/17) Benztropine (Verified Allergy, Unknown, 07/01/17) Cephalosporins (Verified Allergy, Unknown, CEPHALEXIN, 07/01/17) Erythromycin (Verified Allergy, Unknown, 07/01/17) Neomycin (Verified Allergy, Unknown, unknown, 07/01/17) Physical Exam Vital Signs Date Time Temp Pulse Resp B/P (MAP) Pulse Ox O2 Delivery O2 Flow Rate FiO2 07/01/17 18:20 37.6 70 20 95 Room Air 07/01/17 18:07 75 20 100/49 95 Room Air 07/01/17 17:48 68 21 93/42 95 Room Air 07/01/17 16:39 37.9 75 17 105/46 94 Room Air 07/01/17 16:36 93 Room Air 07/01/17 16:25 81 07/01/17 16:18 37.6 83 18 105/52 93 Room Air Physical Exam GENERAL: Patient is in no acute distress. HEENT: No acute trauma, normocephalic atraumatic, mucous membranes moist, no nasal congestion, no scleral icterus. NECK: No stridor, no adenopathy, no meningismus, trachea is midline. LUNGS: Clear to auscultation bilaterally, no wheeze, no rhonchi, breath sounds equal. HEART: 2/6 systolic murmur, regular rate and rhythm. ABDOMEN: Soft, nontender, bowel sounds positive, no hernias, no peritonitis. EXTREMITIES: No cyanosis or edema, full range of motion of all the joints without pain or difficulty, no signs for acute trauma. NEUROLOGIC: MR noted. Somnolent but opens eyes to voice and tactile stimulation. Seen to move all extremities. SKIN: No rash, no jaundice, no diaphoresis. Medical Decision & Procedures ER Provider Diagnostic Interpretation: Radiology results as stated below per my review and radiologist interpretation: CHEST ONE VIEW PORTABLE HISTORY: 51 years-old Male Sepsis acute sepsis COMPARISON: Chest radiograph 06/01/2017, CTA chest 06/01/2017 TECHNIQUE: Portable AP view of the chest FINDINGS: Cardiac silhouette is upper limits of normal in size, unchanged. There is no pneumothorax, pleural effusion, lobar airspace consolidation or overt pulmonary edema. Linear subsegmental bibasilar opacities are again noted suggesting areas of atelectasis/scarring. Sigmoidal scoliosis of the spine redemonstrated. Cortical thickening of the left clavicle suggests remote fracture. The bones of the chest appear grossly intact. Remote bilateral rib fractures are noted. IMPRESSION: No acute process. The above report was generated using voice recognition software. It may contain grammatical, syntax or spelling errors. Electronically signed by: Sarath Nova M.D. 07/01/2017 5:12 PM Dictated Date/Time: 07/01/2017 5:11 PM HEAD WITHOUT CONTRAST (CT) CLINICAL HISTORY: 51 years-old Male with change in ms. Acute altered mental status TECHNIQUE: Multiple axial CT images of the head were obtained without contrast. A dose lowering technique was utilized adhering to the principles of ALARA. CT DOSE: 614.27 mGy.cm COMPARISON: Head CT 06/01/2017, brain MRI 06/01/2017. FINDINGS: No acute intracranial hemorrhage, midline shift, intracranial mass, hydrocephalus, territorial ischemia or abnormal extra-axial collection. Mild atrophy. 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 Study is limited secondary to patient positioning. The calvarium is intact. The mastoid air cells, and middle ear cavities are clear. Moderate mucosal thickening of the ethmoid air cells. IMPRESSION: No acute intracranial abnormality. The above report was generated using voice recognition software. It may contain grammatical, syntax or spelling errors. Electronically signed by: Sarath Nova M.D. 07/01/2017 5:42 PM Dictated Date/Time: 07/01/2017 5:39 PM Laboratory Results 07/01/17 17:02 Red Blood Count 3.93, Mean Corpuscular Volume 93.6, Mean Corpuscular Hemoglobin 31.0, Mean Corpuscular Hemoglobin Concent 33.2, Mean Platelet Volume 10.6, Neutrophils (%) (Auto) 72.9, Lymphocytes (%) (Auto) 18.2, Monocytes (%) (Auto) 7.2, Eosinophils (%) (Auto) 1.3, Basophils (%) (Auto) 0.1, Neutrophils # (Auto) 5.06, Lymphocytes # (Auto) 1.26, Monocytes # (Auto) 0.50, Eosinophils # (Auto) 0.09, Basophils # (Auto) 0.01 07/01/17 17:02 Test 07/01/17 16:35 07/01/17 17:02 Urine Color YELLOW Urine Appearance CLOUDY (CLEAR) Urine pH 7.5 (4.5-7.5) Urine Specific [place] 1.023 (1.000-1.030) Urine Protein NEG (NEG) Urine Glucose (UA) NEG (NEG) Urine Ketones NEG (NEG) Urine Occult Blood 2+ (NEG) Urine Nitrite NEG (NEG) Urine Bilirubin NEG (NEG) Urine Urobilinogen NEG (NEG) Urine Leukocyte Esterase TRACE (NEG) Urine WBC (Auto) 1-5 /hpf (0-5) Urine RBC (Auto) 10-30 /hpf (0-4) Urine Hyaline Casts (Auto) 5-10 /lpf (0-5) Urine Epithelial Cells (Auto) >30 /lpf (0-5) Urine Bacteria (Auto) NEG (NEG) Urine Renal Epithelial Cells /lpf (0-5) Influenza Type A (RT-PCR) Neg for Influ A (NEG) Influenza Type B (RT-PCR) Neg for Influ B (NEG) White Blood Count 6.94 K/uL (4.8-10.8) Red Blood Count 3.93 M/uL (4.7-6.1) Hemoglobin 12.2 g/dL (14.0-18.0) Hematocrit 36.8 % (42-52) Mean Corpuscular Volume 93.6 fL (80-100) Mean Corpuscular Hemoglobin 31.0 pg (25-34) Mean Corpuscular Hemoglobin Concent 33.2 g/dl (32-36) Platelet Count 175 K/uL (130-400) Mean Platelet Volume 10.6 fL (7.4-10.4) Neutrophils (%) (Auto) 72.9 % Lymphocytes (%) (Auto) 18.2 % Monocytes (%) (Auto) 7.2 % Eosinophils (%) (Auto) 1.3 % Basophils (%) (Auto) 0.1 % Neutrophils # (Auto) 5.06 K/uL (1.4-6.5) Lymphocytes # (Auto) 1.26 K/uL (1.2-3.4) Monocytes # (Auto) 0.50 K/uL (0.11-0.59) Eosinophils # (Auto) 0.09 K/uL (0-0.5) Basophils # (Auto) 0.01 K/uL (0-0.2) RDW Standard Deviation 46.0 fL (36.4-46.3) RDW Coefficient of Variation 13.3 % (11.5-14.5) Immature Granulocyte % (Auto) 0.3 % Immature Granulocyte # (Auto) 0.02 K/uL (0.00-0.02) Prothrombin Time 10.2 SECONDS (9.0-12.0) Prothromb Time International Ratio 1.0 (0.9-1.1) Activated Partial Thromboplast Time 25.3 SECONDS (21.0-31.0) Partial Thromboplastin Ratio 1.0 Anion Gap 9.0 mmol/L (3-11) Est Creatinine Clear Calc Drug Dose 144.1 ml/min Estimated GFR () 136.8 Estimated GFR (Non- 118.1 BUN/Creatinine Ratio 30.8 (10-20) Lactic Acid Level 1.8 mmol/L (0.4-2.0) Calcium Level 8.3 mg/dl (8.5-10.1) Magnesium Level 1.8 mg/dl (1.8-2.4) Total Bilirubin 0.3 mg/dl (0.2-1) Aspartate Amino Transf (AST/SGOT) 10 U/L (15-37) Alanine Aminotransferase (ALT/SGPT) 20 U/L (12-78) Alkaline Phosphatase 123 U/L (45-117) Ammonia 25.6 umol/L (11-32) Total Protein 5.8 gm/dl (6.4-8.2) Albumin 3.0 gm/dl (3.4-5.0) Globulin 2.8 gm/dl (2.5-4.0) Albumin/Globulin Ratio 1.1 (0.9-2) Phenobarbital Level 27.6 mcg/mL (15.0-40.0) Laboratory results reviewed by me. Medications Administered Medications (Trade) Dose Ordered Sig/Porsha Route Start Time Stop Time Status Last Admin Dose Admin Sodium Chloride 500 ml @ 999 mls/hr Q31M ONCE IV 07/01/17 16:28 07/01/17 16:58 DC 07/01/17 16:43 999 MLS/HR Piperacillin Sod/ Tazobactam Sod (Zosyn Iv) 4.5 gm NOW STAT IV 07/01/17 16:28 07/01/17 16:33 DC 07/01/17 17:09 4.5 GM Acetaminophen (Tylenol Supp) 975 mg NOW STAT WA 07/01/17 16:32 07/01/17 16:34 DC 07/01/17 17:09 975 MG Sodium Chloride 1,000 ml @ 999 mls/hr Q1H1M STAT IV 07/01/17 17:53 18 18:53 DC 07/01/17 17:57 999 MLS/HR ECG Per My Interpretation Indication: other (seizure) Rate (beats per minute): 81 Rhythm: normal sinus Findings: no acute ischemic change, no ectopy, other (No PVCs or ST elevations) ED Course 1624: The patient was evaluated in room C05. A complete history and physical exam was performed. 1628: Ordered Piperacillin Sod/ Tazobactam Sod 4.5 gm IV, Sodium Chloride 500 ml @ 999 mls/hr IV. 1632: Ordered Acetaminophen 975 mg WA. 1753: Ordered Sodium Chloride 1000 ml @ 999 mls/hr IV. 1835: I reevaluated the patient and he is more awake than when he originally came in. I discussed the patients case with the [facility] staff. They believe the patient is more sleepy than his usual self. They would like the patient to be further evaluated. 1840: I discussed the patients case with Dr. Arenas, [facility] Hospitalist. He understands the patients condition and agrees to accept the patient. The patient will be further evaluated. Medical Decision The patient is a 51 year old male who presents to the Emergency Room with complaints of a constant fever that started at 0830 this morning. Differential diagnoses considered include sepsis, bacteremia, pneumonia, UTI, viral illness, dehydration ,electrolyte imbalance, intracranial bleeding.. There is no leukocytosis or worrisome anemia. No significant electrolyte abnormality, kidney failure or hepatitis. Lactic acid level is not elevated making sepsis less likely. Blood cultures are pending. Urinalysis shows some contamination, no obvious infection. Phenobarbital level was therapeutic. Influenza testing was negative. Brain CT shows no acute bleed or mass-effect. Chest film does not show pneumonia or CHF. On exam, I did not find evidence for cellulitis. The patient received IV saline, his blood pressure dropped slightly and a second bolus of IV saline was given. He received rectal Tylenol and IV Zosyn. The patient is still sleepy and not at baseline as per the staff who regularly cares for him. He presents febrile and has had a change in mental status. I suspect the mental status change is from the infection itself. Because of the change of mental status, the lack of a source for this infection , the concern for bacteremia/sepsis, the slight drop in blood pressure, a hospital stay was felt warranted. I spoke with the patient's caregivers, I talked with case management. I discussed the case with the on-call hospitalist. Medication Reconcilliation Current Medication List: was personally reviewed by me Blood Pressure Screening Patient's blood pressure: Low blood pressure Consults Time Called: 1836 Consulting Physician: Glendy [facility] Hospitalist Returned Call: [phone] I discussed the patients case with [facility]. He understands the patients condition and agrees to accept the patient. The patient will be further evaluated. Impression Primary Impression: Change in mental status Additional Impressions: Seizure Fever Scribe Attestation The scribe's documentation has been prepared under my direction and personally reviewed by me in its entirety. I confirm that the note above accurately reflects all work, treatment, procedures, and medical decision making performed by me. Departure Information Dispostion Being Evaluated By Hospitalist Referrals Soila Morales D.O. (PCP) Patient Instructions My [facility] Problem Qualifiers
--- NOTE | 2017-07-01 17:14 | DIAGNOSTIC IMAGING REPORT ---
CHEST ONE VIEW PORTABLE HISTORY: 51 years-old Male Sepsis acute sepsis COMPARISON: Chest radiograph 06/01/2017, CTA chest 06/01/2017 TECHNIQUE: Portable AP view of the chest FINDINGS: Cardiac silhouette is upper limits of normal in size, unchanged. There is no pneumothorax, pleural effusion, lobar airspace consolidation or overt pulmonary edema. Linear subsegmental bibasilar opacities are again noted suggesting areas of atelectasis/scarring. Sigmoidal scoliosis of the spine redemonstrated. Cortical thickening of the left clavicle suggests remote fracture. The bones of the chest appear grossly intact. Remote bilateral rib fractures are noted. IMPRESSION: No acute process. The above report was generated using voice recognition software. It may contain grammatical, syntax or spelling errors. Electronically signed by: Sarath Nova M.D. 07/01/2017 5:12 PM Dictated Date/Time: 07/01/2017 5:11 PM
[2017-07-01 17:25] LABS: BASO % 0.1 %; BASO ABS # 0.01 K/uL (0-0.2); EOS % 1.3 %; EOS ABS # 0.09 K/uL (0-0.5); HEMATOCRIT 36.8 % (42-52); HEMOGLOBIN 12.2 g/dL (14.0-18.0); IG# 0.02 K/uL (0.00-0.02); LYMPH % 18.2 %; LYMPH ABS # 1.26 K/uL (1.2-3.4); MEAN CELL VOLUME 93.6 fL (80-100); MEAN CORPUSCULAR HGB CONC 33.2 g/dl (32-36); MEAN PLATELET VOLUME 10.6 fL (7.4-10.4); MONO % 7.2 %; NEUT % 72.9 %; NEUT ABS # 5.06 K/uL (1.4-6.5); PLATELET COUNT 175 K/uL (130-400); RED CELL DISTRIBUTION WIDTH CV 13.3 % (11.5-14.5); WHITE BLOOD COUNT 6.94 K/uL (4.8-10.8)
--- NOTE | 2017-07-01 17:43 | DIAGNOSTIC IMAGING REPORT ---
HEAD WITHOUT CONTRAST (CT) CLINICAL HISTORY: 51 years-old Male with change in ms. Acute altered mental status TECHNIQUE: Multiple axial CT images of the head were obtained without contrast. A dose lowering technique was utilized adhering to the principles of ALARA. CT DOSE: 614.27 mGy.cm COMPARISON: Head CT 06/01/2017, brain MRI 06/01/2017. FINDINGS: No acute intracranial hemorrhage, midline shift, intracranial mass, hydrocephalus, territorial ischemia or abnormal extra-axial collection. Mild atrophy. 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 Study is limited secondary to patient positioning. The calvarium is intact. The mastoid air cells, and middle ear cavities are clear. Moderate mucosal thickening of the ethmoid air cells. IMPRESSION: No acute intracranial abnormality. The above report was generated using voice recognition software. It may contain grammatical, syntax or spelling errors. Electronically signed by: Sarath Nova M.D. 07/01/2017 5:42 PM Dictated Date/Time: 07/01/2017 5:39 PM
[2017-07-01 17:49] LABS: CALCIUM 8.3 mg/dl (8.5-10.1); CREATININE 0.59 mg/dl (0.60-1.40); POTASSIUM 3.5 mmol/L (3.5-5.1)
[2017-07-01 17:52] LABS: TOTAL PROTEIN 5.8 gm/dl (6.4-8.2)
[2017-07-01] MEDS ORDERED: SODIUM CHLORIDE 0.9% 1000ML 1,000 ML IV STA (17:53)
[2017-07-01 17:57] LABS: PTT PATIENT 25.3 SECONDS (21.0-31.0)
[2017-07-01 18:04] LABS: INFLUENZA A PCR Neg for Influ A (NEG); INFLUENZA B PCR Neg for Influ B (NEG)
[2017-07-01] MEDS ORDERED: OMEP20CA9 PO (18:29)
[2017-07-01] MEDS ORDERED: NYST1POW7 TD (18:29)
[2017-07-01] MEDS ORDERED: ALBUT/IPRATROP 3MG/0.5MG NEB 3 ML VIAL INH ONE (20:13)
[2017-07-01] MEDS ORDERED: LORAZEPAM INJ 1 MG in SYRINGE 0.5 ML IV PRN (20:15)
[2017-07-01] MEDS ORDERED: OXYCODONE/ACETAMINOPHEN 5-325 TAB PO PRN (20:15)
[2017-07-01] MEDS ORDERED: MAGNESIUM SULFATE 1GM / D5W 1 GM in PREMIXED IN D5W 100 ML IV ONE (20:15)
[2017-07-01] MEDS ORDERED: ACETAMINOPHEN 325 MG TAB PO PRN (20:15)
[2017-07-01] MEDS ORDERED: KETOROLAC TROMETHAMINE 15 MG/ML VIAL IV. PRN (20:15)
[2017-07-01] MEDS ORDERED: PROCHLORPERAZINE INJ 5 MG in SYRINGE 4 ML IV PRN (20:15)
[2017-07-01] MEDS ORDERED: ALBUT/IPRATROP 3MG/0.5MG NEB 3 ML VIAL INH PRN (20:15)
[2017-07-01] MEDS ORDERED: LACTATED RINGER'S 1000ML 1,000 ML IV ONE (20:15)
[2017-07-01 20:20] VITALS: BP 97/57; PULSE 74; TEMP 37.8; O2SAT 92
[2017-07-01 20:42] VITALS: PULSE 71; O2SAT 93
[2017-07-01 21:00] VITALS: BP 97/57; PULSE 74; TEMP 37.8; O2SAT 92; Ht 172.7 cm; Wt 68.0 kg
[2017-07-01] MEDS: DOCUSATE SODIUM 100 MG CAP PO SCH (21:51)
[2017-07-01] MEDS: CLONAZEPAM 0.5 MG TAB PO SCH (21:51)
[2017-07-01] MEDS: DOCUSATE SODIUM/SENNA 50/8.6MG TAB PO SCH (21:52)
[2017-07-01] MEDS: PSYLLIUM 58.6% PWD PACK S\\F PO SCH (21:52)
[2017-07-01] MEDS: LACOSAMIDE 50 MG TAB PO SCH (21:53)
[2017-07-01] MEDS: ENOXAPARIN 30 MG/0.3 ML SYR SQ SCH (22:06)
--- NOTE | 2017-07-01 22:26 | HISTORY & PHYSICAL EXAMINATION ---
DATE OF ADMISSION: 07/01/2017 PRIMARY CARE DOCTOR: Dr. Morales. CHIEF COMPLAINT: Altered mental status, seizures per records. HISTORY OF PRESENT ILLNESS: History obtained from patient's caregiver, records. Unable to obtain history from patient secondary to a nonverbal state. Medical history significant for seizure disorder, cerebral palsy, mental retardation, partial trisomy, aspiration risk, chronic anemia (baseline hemoglobin of 12-13), OCD as per records. Recent confinement last month for recurrent seizures. This morning patient noted to be febrile, cough symptoms noted. Patient had recurrent seizure as per caregiver. Typical seizure described by caregiver as patient's head shaking to the left for a few minutes. Decreased responsiveness after episode which is unusual as per caregiver. Patient had been seizure free for more than a week which actually was better than usual frequency. Brought to the Emergency Room. Patient received Zosyn. MEDICAL HISTORY: As above. SURGERIES: tesicular surgery. HOME MEDICATIONS: Include Ativan, multivitamins, Bactroban, nystatin, Prilosec, phenobarbital, polyethylene glycol, Senokot, sorbitol, Zonegran, calcium plus D, vitamin D, Zyrtec, Klonopin, stool softener, diazepam, Prozac, fiber laxative, ketoconazole, Vimpat, Lamictal. ALLERGIES: BENZTROPINE, ERYTHROMYCIN, NEOMYCIN, ACYCLOVIR AND CEPHALOSPORIN. FAMILY HISTORY: Could not to be obtained. PERSONAL AND SOCIAL HISTORY: Nonsmoker. [facility] resident. REVIEW OF SYSTEMS: Could not be obtained. PHYSICAL EXAMINATION: VITAL SIGNS: Blood pressure was noted to be 105/46, pulse rate 70, RR 20, temperature 37.8, sats 97 on room air. GENERAL: Noted to be nonverbal. The patient blinking his eyes. No respiratory distress. Awake. SKIN: Pallor, warm. HEENT: Pale palpebral conjunctivae. No ptosis. Dry mucosa. NECK: Supple, nontender. CHEST: Decreased efforts, rhonchi on the left. HEART: Regular rate and rhythm, no murmur. ABDOMEN: Some distention, nontender. EXTREMITIES: No edema. chronic spastic contractures. NE : Awake, no ptosis, no facial asymmetry, gait and stance not assessed, no nuchal rigidity. LABORATORY DATA: Hemoglobin was noted to be 12.2, hematocrit 36.8, white blood cell count 9, platelets 175. Sodium 140, potassium 4.5, chloride 109, glucose at 99. CT of the head, no acute pathology. Chest x-ray, no acute process, atelectasis, remote fracture. ASSESSMENT: 1. Encephalopathy sp breakthrough seizure Seizures had been well controlled the last week as per caregiver until this morning. Breakthrough seizure possibly secondary to infectious etiology - recurrent aspiration pneumonitis, known aspiration risk possible sepsis. 2. Cerebral palsy, mental retardation as per records, trisomy as per records. 3. Chronic anemia, hemoglobin baseline. 4. History of testicular cancer status post surgery. PLAN: GMF CS, Unasyn. Continue AED regimen IV Ativan as needed, seizure precautions May need Neurology consult for uncontrolled seizures inpatient. DVT prophylaxis, Lovenox subQ. DNR. MTDD
[2017-07-01 23:04] VITALS: TEMP 38
[2017-07-01] MEDS: AMPICILLIN/SULBACTAM SOD INJ 3,000 MG in SODIUM CHLORIDE 0.9% 100ML 100 ML IV SCH (23:46)
[2017-07-02] VITALS: O2SAT 92
[2017-07-02 00:15] VITALS: BP 111/66; PULSE 76; TEMP 38; O2SAT 92
[2017-07-02] MEDS: AMPICILLIN/SULBACTAM SOD INJ 3,000 MG in SODIUM CHLORIDE 0.9% 100ML 100 ML IV SCH ×4 (05:40→23:41)
[2017-07-02 06:58] LABS: BASO % 0.3 %; BASO ABS # 0.02 K/uL (0-0.2); EOS % 2.5 %; EOS ABS # 0.18 K/uL (0-0.5); HEMATOCRIT 37.1 % (42-52); HEMOGLOBIN 12.2 g/dL (14.0-18.0); IG# 0.02 K/uL (0.00-0.02); LYMPH % 23.4 %; LYMPH ABS # 1.67 K/uL (1.2-3.4); MEAN CELL VOLUME 93.2 fL (80-100); MEAN CORPUSCULAR HEMOGLOBIN 30.7 pg (25-34); MEAN CORPUSCULAR HGB CONC 32.9 g/dl (32-36); MEAN PLATELET VOLUME 10.5 fL (7.4-10.4); MONO % 10.1 %; MONO ABS # 0.72 K/uL (0.11-0.59); NEUT % 63.4 %; NEUT ABS # 4.54 K/uL (1.4-6.5); PLATELET COUNT 172 K/uL (130-400); RED CELL DISTRIBUTION WIDTH CV 13.3 % (11.5-14.5); RED CELL DISTRIBUTION WIDTH SD 45.6 fL (36.4-46.3); WHITE BLOOD COUNT 7.15 K/uL (4.8-10.8)
[2017-07-02 07:11] VITALS: BP 110/65; PULSE 69; TEMP 37; O2SAT 94
[2017-07-02 07:28] LABS: ALBUMIN 2.8 gm/dl (3.4-5.0); CALCIUM 8.6 mg/dl (8.5-10.1); CREATININE 0.48 mg/dl (0.60-1.40); POTASSIUM 3.7 mmol/L (3.5-5.1); TOTAL PROTEIN 5.8 gm/dl (6.4-8.2)
--- NOTE | 2017-07-02 07:38 | Clinical Documentation Query ---
CLINICAL DOCUMENTATION QUERY 51 yo male admitted for altered mental status after a seizure. Patient was also febrile. Patient is nonverbal and staff report he is "not been himself since the seizure". In your clinical opinion is this patient being managed for: ( ) Encephalopathy ( ) Not Agree ( X ) Other explanation of clinical findings (Please Explain): Postictal state ( ) Unable to determine (Please Define) ( ) Need to Discuss The medical record reflects the following clinical findings, treatment, and risk factors. Clinical Indicators: As above Treatment: CT head, IV antibiotics, IV hydration, antipyretic Risk Factors: Seizure d/o, fever, mental retardation, possible pneumonia Please clarify and document your clinical opinion in the progress notes and discharge summary. Terms such as "probable", "suspected", "likely", "questionable", "possible", or "still to be ruled out" are acceptable. IF IN AGREEMENT, YOU MUST DOCUMENT ABOVE DIAGNOSTIC STATEMENT IN DAILY PROGRESS NOTES AND DISCHARGE SUMMARY. This document is not part of the patient's record. Thank You, Claudia Leyva RN [phone]
[2017-07-02] MEDS: LORAZEPAM 0.5 MG TAB PO SCH ×3 (08:31→21:14)
[2017-07-02] MEDS: PANTOprazole SOD 40 MG TAB PO SCH (08:31)
[2017-07-02] MEDS: CETIRIZINE HCL 10 MG TAB PO SCH (08:32)
[2017-07-02] MEDS: POLYETHYLENE (MIRALAX) 17 GM PACK PO SCH ×2 (08:32→08:42)
[2017-07-02] MEDS: FLUOXETINE HCL 20 MG CAP PO SCH (08:32)
[2017-07-02] MEDS: MULTIVITAMIN TAB PO SCH (08:33)
[2017-07-02] MEDS: LACOSAMIDE 50 MG TAB PO SCH ×2 (08:33→21:03)
[2017-07-02] MEDS: DOCUSATE SODIUM/SENNA 50/8.6MG TAB PO SCH ×2 (08:34→21:01)
[2017-07-02] MEDS: PSYLLIUM 58.6% PWD PACK S\\F PO SCH ×2 (08:34→21:00)
[2017-07-02] MEDS: PHENOBARBITAL 32.4 MG TAB PO SCH ×2 (08:40→16:21)
[2017-07-02] MEDS ORDERED: AMPICILLIN/SULBACTAM CONSULT ACTIVE PRN (09:00)
--- NOTE | 2017-07-02 11:23 | Progress Note ---
Internal Med Progress Note Date of Service: Jul 02, 2017. Provider Documentation: SUBJECTIVE: Seen and examined at bedside More alert, awake today Fever resolved manager of compliance at bedside Patient not able to provide any history Caregiver reports that patient has been having fever since one day and had a witnessed seizure yesterday OBJECTIVE: Vital Signs-as noted below Physical Exam: General Appearance:Moderately built and nourished, no apparent distress Head: normocephalic, Atraumatic Eyes: normal inspection, EOMI, PERRL Neck: supple, Trachea midline Respiratory/Chest: Decreased breath sounds, CTA Cardiovascular: S1, S2, No murmur Abdomen/GI:Soft, Non tender, Bowel sounds present Extremities/Musculoskelatal:normal inspection, no edema Neurologic/Psych:complete neuro exam could not be performed Skin: normal color, warm Lab data as noted below. ASSESSMENT & PLAN: Recurrent seizures: H/O Profound Intellectual disability, Cerebral Palsy CT head:No acute intracranial abnormality Continue Vimpat, Phenobarbital, Lamictal, Zonisamide, Ativan Phenobarbital levels:27.6 seizure/Aspiration precautions Neurology consulted Fever: Likely Pulmonary source CXR:No acute process ? Aspiration Continue Unasyn Aspiration precautions Speech therapy Blood/Urine cultures:pending elevated Procalcitonin No signs of sepsis H/O chronic constipation: Continue bowel regimen H/O Testicular cancer S/P surgery H/O Profound Intellectual disability H/O cerebral palsy monitor DVT Px: Lovenox SQ Code Status: DNR Disposition: Plan to discharge back to [facility] when stable Contact Number for Home Health Care Coordinator:[phone] Vital Signs: Date Time Temp Pulse Resp B/P (MAP) Pulse Ox O2 Delivery O2 Flow Rate FiO2 07/02/17 08:30 Room Air 07/02/17 07:11 37.0 69 20 110/65 (80) 94 Room Air 07/02/17 00:15 38.0 76 18 111/66 (81) 92 Room Air 07/02/17 00:00 92 Room Air 07/01/17 23:04 38.0 07/01/17 21:00 37.8 74 20 97/57 92 Room Air 07/01/17 20:42 71 26 93 Room Air 07/01/17 20:20 37.8 74 20 97/57 (70) 92 Room Air 07/01/17 19:59 77 18 110/56 94 07/01/17 19:30 77 18 110/56 93 Room Air 07/01/17 19:10 75 21 103/56 93 Room Air 07/01/17 18:40 78 20 112/53 97 Room Air 07/01/17 18:20 37.6 70 20 95 Room Air 07/01/17 18:07 75 20 100/49 95 Room Air 07/01/17 17:48 68 21 93/42 95 Room Air 07/01/17 16:39 37.9 75 17 105/46 94 Room Air 07/01/17 16:36 93 Room Air 07/01/17 16:25 81 07/01/17 16:18 37.6 83 18 105/52 93 Room Air Lab Results: Results Past 24 Hours Test 07/01/17 16:35 07/01/17 17:02 07/01/17 17:10 07/02/17 06:36 Range/Units Urine Color YELLOW Urine Appearance CLOUDY CLEAR Urine pH 7.5 4.5-7.5 Urine Specific [place] 1.023 1.000-1.030 Urine Protein NEG NEG Urine Glucose (UA) NEG NEG Urine Ketones NEG NEG Urine Occult Blood 2+ NEG Urine Nitrite NEG NEG Urine Bilirubin NEG NEG Urine Urobilinogen NEG NEG Urine Leukocyte Esterase TRACE NEG Urine WBC (Auto) 1-5 0-5 /hpf Urine RBC (Auto) 10-30 0-4 /hpf Urine Hyaline Casts (Auto) 5-10 0-5 /lpf Urine Epithelial Cells (Auto) >30 0-5 /lpf Urine Bacteria (Auto) NEG NEG Urine Renal Epithelial Cells 0-5 /lpf Influenza Type A (RT-PCR) Neg for Influ A NEG Influenza Type B (RT-PCR) Neg for Influ B NEG White Blood Count 6.94 7.15 4.8-10.8 K/uL Red Blood Count 3.93 3.98 4.7-6.1 M/uL Hemoglobin 12.2 12.2 14.0-18.0 g/dL Hematocrit 36.8 37.1 42-52 % Mean Corpuscular Volume 93.6 93.2 80-100 fL Mean Corpuscular Hemoglobin 31.0 30.7 25-34 pg Mean Corpuscular Hemoglobin Concent 33.2 32.9 32-36 g/dl Platelet Count 175 172 130-400 K/uL Mean Platelet Volume 10.6 10.5 7.4-10.4 fL Neutrophils (%) (Auto) 72.9 63.4 % Lymphocytes (%) (Auto) 18.2 23.4 % Monocytes (%) (Auto) 7.2 10.1 % Eosinophils (%) (Auto) 1.3 2.5 % Basophils (%) (Auto) 0.1 0.3 % Neutrophils # (Auto) 5.06 4.54 1.4-6.5 K/uL Lymphocytes # (Auto) 1.26 1.67 1.2-3.4 K/uL Monocytes # (Auto) 0.50 0.72 0.11-0.59 K/uL Eosinophils # (Auto) 0.09 0.18 0-0.5 K/uL Basophils # (Auto) 0.01 0.02 0-0.2 K/uL RDW Standard Deviation 46.0 45.6 36.4-46.3 fL RDW Coefficient of Variation 13.3 13.3 11.5-14.5 % Immature Granulocyte % (Auto) 0.3 0.3 % Immature Granulocyte # (Auto) 0.02 0.02 0.00-0.02 K/uL Prothrombin Time 10.2 9.0-12.0 SECONDS Prothromb Time International Ratio 1.0 0.9-1.1 Activated Partial Thromboplast Time 25.3 21.0-31.0 SECONDS Partial Thromboplastin Ratio 1.0 Sodium Level 141 140 136-145 mmol/L Potassium Level 3.5 3.7 3.5-5.1 mmol/L Chloride Level 109 108 98-107 mmol/L Carbon Dioxide Level 23 25 21-32 mmol/L Anion Gap 9.0 7.0 3-11 mmol/L Blood Urea Nitrogen 18 13 7-18 mg/dl Creatinine 0.59 0.48 0.60-1.40 mg/dl Est Creatinine Clear Calc Drug Dose 144.1 177.1 ml/min Estimated GFR () 136.8 148.9 Estimated GFR (Non- 118.1 128.5 BUN/Creatinine Ratio 30.8 27.5 10-20 Random Glucose 99 92 70-99 mg/dl Lactic Acid Level 1.8 0.4-2.0 mmol/L Calcium Level 8.3 8.6 8.5-10.1 mg/dl Magnesium Level 1.8 1.8-2.4 mg/dl Total Bilirubin 0.3 0.3 0.2-1 mg/dl Aspartate Amino Transf (AST/SGOT) 10 8 15-37 U/L Alanine Aminotransferase (ALT/SGPT) 20 17 12-78 U/L Alkaline Phosphatase 123 117 45-117 U/L Ammonia 25.6 11-32 umol/L Total Protein 5.8 5.8 6.4-8.2 gm/dl Albumin 3.0 2.8 3.4-5.0 gm/dl Globulin 2.8 3.0 2.5-4.0 gm/dl Albumin/Globulin Ratio 1.1 0.9 0.9-2 Phenobarbital Level 27.6 15.0-40.0 mcg/mL Procalcitonin 2.10 0-0.5 ng/ml Microbiology Results 07/01/17 Blood Culture, Received Pending 07/01/17 Blood Culture, Received Pending 07/01/17 Urine Culture, Received Pending
[2017-07-02] MEDS ORDERED: ACETAMINOPHEN IV 650 MG in EMPTY BAG 0 ML IV PRN (12:45)
--- NOTE | 2017-07-02 14:35 | Neurology Consultation ---
Neurology Consultation Date of Consultation: Jul 02, 2017. Attending Physician: Andrew Rain MD Primary Care Physician: Soila Morales D.O. Reason for Consultation: recurrent seizure History of Present Illness Source: patient, clinic records, hospital records Cooper is a 51 year old male with a [facility] seizure disorder, cerebral palsy, mental retardation, partial trisomy, aspiration risk, chronic anemia, baseline hemoglobin of 12-13. He was seen last month for recurrent seizures. He had a recurrence 07/01 in am. Has been good the last week, seizure free, head shaking to the left type seizure witnessed. He was found to be febrile developed a cough. he was brought to the ED and received Zosyn. Currently there is no care takers in the room. He is awake and follow some simple commands. Report from chart indicates he had repeat of seizure this am. one lasting 54 seconds and one lasting 1 min 20 seconds then he slept for several hours. 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 (13) Hx-Testicular Malignancy Status: Chronic (14) Hypothyroidism Nos Status: Chronic (15) Phenobarbital toxicity Status: Acute (16) Profound Mental Retardat Status: Chronic (17) Seizure Status: Acute (18) Seizure Status: Acute (19) Seizure disorder Status: Acute (20) Vitamin D Deficiency Nos Status: Chronic Family History Sibling(s): coronary artery disease Social History Smoking Status: Unknown if ever smoked Drug Use: none Marital Status: single Housing Status: assisted living Occupation Status: disabled Allergies Coded Allergies: Acyclovir (Verified Allergy, Unknown, 07/01/17) Benztropine (Verified Allergy, Unknown, 07/01/17) Cephalosporins (Verified Allergy, Unknown, CEPHALEXIN, 07/01/17) Erythromycin (Verified Allergy, Unknown, 07/01/17) Neomycin (Verified Allergy, Unknown, unknown, 07/01/17) Current Inpatient Medications Current Inpatient Medications Medications (Trade) Dose Ordered Sig/Porsha Route Start Time Stop Time Status Last Admin Dose Admin Enoxaparin Sodium (Lovenox Inj) 30 mg Q24H SQ 07/01/17 21:00 07/31/17 20:59 07/01/17 22:06 30 MG Acetaminophen (Tylenol Tab) 650 mg Q4H PRN PO 07/01/17 20:15 07/31/17 20:14 07/01/17 21:27 650 MG Ketorolac Tromethamine (Toradol Inj) 15 mg Q6H PRN IV. 07/01/17 20:15 07/06/17 20:14 Oxycodone/ Acetaminophen (Percocet 5-325mg Tab) 1 tab Q6H PRN PO 07/01/17 20:15 07/15/17 20:14 Prochlorperazine Edisylate 5 mg/ Syringe 5 ml @ 5 mls/min Q6H PRN IV 07/01/17 20:15 07/31/17 20:14 Lorazepam 1 mg/ Syringe 1 ml @ 0.5 mls/min Q5M PRN IV 07/01/17 20:15 07/31/17 20:14 07/02/17 12:06 0.5 MLS/MIN Cetirizine HCl (zyrTEC TAB) 10 mg DAILY PO 07/02/17 09:00 08/01/17 08:59 07/02/17 08:32 10 MG Clonazepam (Klonopin Tab) 0.25 mg HS PO 07/01/17 21:00 07/31/17 20:59 07/01/17 21:51 0.25 MG Docusate Sodium (coLACE CAP) 200 mg HS PO 07/01/17 21:00 07/31/17 20:59 07/01/17 21:51 200 MG Fluoxetine HCl (Prozac Cap) 40 mg QAM PO 07/02/17 09:00 08/01/17 08:59 07/02/17 08:32 40 MG Lorazepam (Ativan Tab) 0.5 mg TID PO 07/02/17 09:00 08/01/17 08:59 07/02/17 08:31 0.5 MG Multivitamins (Multivitamin Tab) 1 tab QAM PO 07/02/17 09:00 08/01/17 08:59 07/02/17 08:33 1 TAB Senna/Docusate Sodium (Senokot S Tab) 2 tab BID PO 07/01/17 21:00 07/31/17 20:59 07/02/17 08:34 2 TAB Psyllium Hydrophilic Mucilloid (Metamucil Powder) 1 pkt QPM PO 07/01/17 21:00 07/31/17 20:59 07/01/17 21:52 1 PKT Psyllium Hydrophilic Mucilloid (Metamucil Powder) 1 pkt QAM PO 07/02/17 09:00 08/01/17 08:59 07/02/17 08:34 1 PKT Lacosamide (Vimpat Tab) 200 mg BID PO 07/01/17 21:00 07/31/17 20:59 07/02/17 08:33 200 MG Lamotrigine (Lamictal Tab) 400 mg BID PO 07/01/17 20:45 07/31/17 20:44 07/02/17 08:35 400 MG Pantoprazole Sodium (Protonix Tab) 40 mg QAM PO 07/02/17 09:00 08/01/17 08:59 07/02/17 08:31 40 MG Phenobarbital (Phenobarbital Tab) 32.4 mg QAM PO 07/02/17 09:00 08/01/17 08:59 07/02/17 08:40 32.4 MG Polyethylene (Miralax Powder Packet) 17 gm DAILY PO 07/02/17 09:00 08/01/17 08:59 Miscellaneous Information (Order Awaiting Action) 1 ea QS N/A 07/02/17 00:00 08/01/17 00:00 Ampicillin Sodium/ Sulbactam Sodium (Consult) 1 ea UD PRN N/A 07/02/17 09:00 08/01/17 08:59 Albuterol/ Ipratropium (Duoneb) 3 ml Q2H PRN INH 07/01/17 20:15 07/31/17 20:14 Ampicillin Sodium/ Sulbactam Sodium 3000 mg/Sodium Chloride 108 ml @ 216 mls/hr Q6H IV 07/02/17 00:00 07/09/17 00:00 07/02/17 11:30 216 MLS/HR Acetaminophen 650 mg/Empty Bag 65 ml @ 260 mls/hr Q6H PRN IV 07/02/17 12:45 08/01/17 12:44 Physical Exam Vital Signs (Past 24 Hrs): Date Time Temp Pulse Resp B/P (MAP) Pulse Ox O2 Delivery O2 Flow Rate FiO2 07/02/17 08:30 Room Air 07/02/17 07:11 37.0 69 20 110/65 (80) 94 Room Air 07/02/17 00:15 38.0 76 18 111/66 (81) 92 Room Air 07/02/17 00:00 92 Room Air 07/01/17 23:04 38.0 07/01/17 21:00 37.8 74 20 97/57 92 Room Air 07/01/17 20:42 71 26 93 Room Air 07/01/17 20:20 37.8 74 20 97/57 (70) 92 Room Air 07/01/17 19:59 77 18 110/56 94 07/01/17 19:30 77 18 110/56 93 Room Air 07/01/17 19:10 75 21 103/56 93 Room Air 07/01/17 18:40 78 20 112/53 97 Room Air 07/01/17 18:20 37.6 70 20 95 Room Air 07/01/17 18:07 75 20 100/49 95 Room Air 07/01/17 17:48 68 21 93/42 95 Room Air 07/01/17 16:39 37.9 75 17 105/46 94 Room Air 07/01/17 16:36 93 Room Air 07/01/17 16:25 81 07/01/17 16:18 37.6 83 18 105/52 93 Room Air Gen: alert with voice command lungs course breath sounds CV RRR head large depressed area mid forehead below hair line (chronic)no other areas of injury on head lifts arms with command decreased reflexes bilaterally LE LE leg and foot contractures. symmetric facies follows around room with eyes. Laboratory Results Past 24 Hours: 07/02/17 06:36 Red Blood Count 3.98, Mean Corpuscular Volume 93.2, Mean Corpuscular Hemoglobin 30.7, Mean Corpuscular Hemoglobin Concent 32.9, Mean Platelet Volume 10.5, Neutrophils (%) (Auto) 63.4, Lymphocytes (%) (Auto) 23.4, Monocytes (%) (Auto) 10.1, Eosinophils (%) (Auto) 2.5, Basophils (%) (Auto) 0.3, Neutrophils # (Auto ) 4.54, Lymphocytes # (Auto) 1.67, Monocytes # (Auto) 0.72, Eosinophils # (Auto ) 0.18, Basophils # (Auto) 0.02 07/02/17 06:36 Test 07/01/17 16:35 07/01/17 17:02 07/01/17 17:10 07/02/17 06:36 Urine Color YELLOW Urine Appearance CLOUDY (CLEAR) Urine pH 7.5 (4.5-7.5) Urine Specific [place] 1.023 (1.000-1.030) Urine Protein NEG (NEG) Urine Glucose (UA) NEG (NEG) Urine Ketones NEG (NEG) Urine Occult Blood 2+ (NEG) Urine Nitrite NEG (NEG) Urine Bilirubin NEG (NEG) Urine Urobilinogen NEG (NEG) Urine Leukocyte Esterase TRACE (NEG) Urine WBC (Auto) 1-5 /hpf (0-5) Urine RBC (Auto) 10-30 /hpf (0-4) Urine Hyaline Casts (Auto) 5-10 /lpf (0-5) Urine Epithelial Cells (Auto) >30 /lpf (0-5) Urine Bacteria (Auto) NEG (NEG) Urine Renal Epithelial Cells /lpf (0-5) Influenza Type A (RT-PCR) Neg for Influ A (NEG) Influenza Type B (RT-PCR) Neg for Influ B (NEG) Prothrombin Time 10.2 SECONDS (9.0-12.0) Prothromb Time International Ratio 1.0 (0.9-1.1) Activated Partial Thromboplast Time 25.3 SECONDS (21.0-31.0) Partial Thromboplastin Ratio 1.0 Lactic Acid Level 1.8 mmol/L (0.4-2.0) Magnesium Level 1.8 mg/dl (1.8-2.4) Ammonia 25.6 umol/L (11-32) Phenobarbital Level 27.6 mcg/mL (15.0-40.0) Procalcitonin 2.10 ng/ml (0-0.5) White Blood Count 7.15 K/uL (4.8-10.8) Red Blood Count 3.98 M/uL (4.7-6.1) Hemoglobin 12.2 g/dL (14.0-18.0) Hematocrit 37.1 % (42-52) Mean Corpuscular Volume 93.2 fL (80-100) Mean Corpuscular Hemoglobin 30.7 pg (25-34) Mean Corpuscular Hemoglobin Concent 32.9 g/dl (32-36) Platelet Count 172 K/uL (130-400) Mean Platelet Volume 10.5 fL (7.4-10.4) Neutrophils (%) (Auto) 63.4 % Lymphocytes (%) (Auto) 23.4 % Monocytes (%) (Auto) 10.1 % Eosinophils (%) (Auto) 2.5 % Basophils (%) (Auto) 0.3 % Neutrophils # (Auto) 4.54 K/uL (1.4-6.5) Lymphocytes # (Auto) 1.67 K/uL (1.2-3.4) Monocytes # (Auto) 0.72 K/uL (0.11-0.59) Eosinophils # (Auto) 0.18 K/uL (0-0.5) Basophils # (Auto) 0.02 K/uL (0-0.2) RDW Standard Deviation 45.6 fL (36.4-46.3) RDW Coefficient of Variation 13.3 % (11.5-14.5) Immature Granulocyte % (Auto) 0.3 % Immature Granulocyte # (Auto) 0.02 K/uL (0.00-0.02) Anion Gap 7.0 mmol/L (3-11) Est Creatinine Clear Calc Drug Dose 177.1 ml/min Estimated GFR () 148.9 Estimated GFR (Non- 128.5 BUN/Creatinine Ratio 27.5 (10-20) Calcium Level 8.6 mg/dl (8.5-10.1) Total Bilirubin 0.3 mg/dl (0.2-1) Aspartate Amino Transf (AST/SGOT) 8 U/L (15-37) Alanine Aminotransferase (ALT/SGPT) 17 U/L (12-78) Alkaline Phosphatase 117 U/L (45-117) Total Protein 5.8 gm/dl (6.4-8.2) Albumin 2.8 gm/dl (3.4-5.0) Globulin 3.0 gm/dl (2.5-4.0) Albumin/Globulin Ratio 0.9 (0.9-2) Imaging CT head- No acute intracranial hemorrhage, midline shift, intracranial mass, hydrocephalus, territorial ischemia or abnormal extra-axial collection. Mild atrophy. 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 Study is limited secondary to patient positioning. The calvarium is intact. The mastoid air cells, and middle ear cavities are clear. Moderate mucosal thickening of the ethmoid air cells. Impression 51 year old male with recurrent seizures. Plan 1. no aid in room but patient appears to be at baseline 2. continue Lamictal 400 mg BID, Vimpat 200 mg BID, diazepam 5 mg PRN prn, Ativan 0.5mg TID, phenobarbital 32.4 am- 64.8 mg pm, Zonegran 300 mg hs 3. appears phenobarbital on med list is only being dosed am, if no reason to hold will add pm dosing 4. zonegran currently no on hospital formulary- [place] [facility] bringing to hospital 5. ativan IV for seizure lasting more than 5 minutes or recurrent seizure x 3 6. fall precautions 7. encourage oral intake 8. phenobarbital level 27.6, ordered Zonegran and Lamictal level I have seen and discussed above patient with Dr Nohelia Bailey, neurology Pt is sleepy but arousable. Attends to voice. Pt admitted due to fever after sz. 2 brief sz this am. Sz have been chronically intractable. Would not change anticonvulsants at present unless signs of toxicity
[2017-07-02 15:38] VITALS: BP 106/68; PULSE 65; TEMP 36.6; O2SAT 95
[2017-07-02 19:49] VITALS: BP 94/61; PULSE 72; TEMP 36.7; O2SAT 95
[2017-07-02] MEDS ORDERED: ZONISAMIDE 100 MG CAP PO SCH (21:00)
[2017-07-02] MEDS: DOCUSATE SODIUM 100 MG CAP PO SCH (21:01)
[2017-07-02] MEDS: ENOXAPARIN 30 MG/0.3 ML SYR SQ SCH (21:02)
[2017-07-02] MEDS: CLONAZEPAM 0.5 MG TAB PO SCH (21:18)
[2017-07-03 00:25] VITALS: BP 97/57; PULSE 67; TEMP 36.5; O2SAT 96
[2017-07-03] MEDS: AMPICILLIN/SULBACTAM SOD INJ 3,000 MG in SODIUM CHLORIDE 0.9% 100ML 100 ML IV SCH ×2 (05:36→11:49)
[2017-07-03 06:28] LABS: HEMOGLOBIN 11.6 g/dL (14.0-18.0); MEAN CELL VOLUME 92.6 fL (80-100); MEAN CORPUSCULAR HEMOGLOBIN 31.6 pg (25-34); MEAN CORPUSCULAR HGB CONC 34.1 g/dl (32-36); MEAN PLATELET VOLUME 10.3 fL (7.4-10.4); PLATELET COUNT 176 K/uL (130-400); RED CELL DISTRIBUTION WIDTH CV 13.2 % (11.5-14.5); RED CELL DISTRIBUTION WIDTH SD 44.8 fL (36.4-46.3); WHITE BLOOD COUNT 4.78 K/uL (4.8-10.8)
[2017-07-03 06:56] LABS: BLOOD UREA NITROGEN 10 mg/dl (7-18); CALCIUM 8.5 mg/dl (8.5-10.1); CARBON DIOXIDE 25 mmol/L (21-32); CREATININE 0.46 mg/dl (0.60-1.40); GLUCOSE 75 mg/dl (70-99); POTASSIUM 3.4 mmol/L (3.5-5.1); SODIUM 142 mmol/L (136-145)
[2017-07-03 07:59] VITALS: BP_SYST 117; BP_SYST 94; BP_DIAS 57; BP_DIAS 69; PULSE 55; PULSE 93; TEMP 36.7; TEMP 37; O2SAT 93; O2SAT 96
[2017-07-03] MEDS: LORAZEPAM 0.5 MG TAB PO SCH ×2 (09:51→14:12)
[2017-07-03] MEDS: PANTOprazole SOD 40 MG TAB PO SCH (09:52)
[2017-07-03] MEDS: PSYLLIUM 58.6% PWD PACK S\\F PO SCH (09:52)
[2017-07-03] MEDS: POLYETHYLENE (MIRALAX) 17 GM PACK PO SCH (09:52)
[2017-07-03] MEDS: FLUOXETINE HCL 20 MG CAP PO SCH (09:53)
[2017-07-03] MEDS: LACOSAMIDE 50 MG TAB PO SCH (09:54)
[2017-07-03] MEDS: MULTIVITAMIN TAB PO SCH (09:54)
[2017-07-03] MEDS: PHENOBARBITAL 32.4 MG TAB PO SCH ×2 (10:02→16:19)
[2017-07-03] MEDS: DOCUSATE SODIUM/SENNA 50/8.6MG TAB PO SCH (11:49)
[2017-07-03] MEDS: CETIRIZINE HCL 10 MG TAB PO SCH (11:49)
[2017-07-03 12:02] VITALS: BP 124/68; PULSE 89; TEMP 37.1; O2SAT 96
--- NOTE | 2017-07-03 14:34 | Neurology Progress Notes ---
Neurology Progress Note Date of Service Jul 03, 2017. Esequiel Gamboa is a 51 year old male with a [facility] seizure disorder, cerebral palsy, mental retardation, partial trisomy, aspiration risk, chronic anemia, baseline hemoglobin of 12-13. He was seen last month for recurrent seizures. He had a recurrence 07/01 in am. Has been good the last week, seizure free, head shaking to the left type seizure witnessed. He was found to be febrile developed a cough. he was brought to the ED and received Zosyn. Currently there is no care takers in the room. He is awake and follow some simple commands. Report from chart indicates he had repeat of seizure this am. one lasting 54 seconds and one lasting 1 min 20 seconds then he slept for several hours. Today there has been no reported seizures. He is more awake and alert than previous. Objective Date Time Temp Pulse Resp B/P (MAP) Pulse Ox O2 Delivery O2 Flow Rate FiO2 07/03/17 12:02 37.1 89 16 124/68 (86) 96 Room Air 07/03/17 08:00 Room Air 07/03/17 08:00 Room Air 07/03/17 07:59 37.0 55 16 94/57 (69) 93 Room Air 07/03/17 00:25 36.5 67 18 97/57 (70) 96 Room Air 07/03/17 00:00 Room Air 07/02/17 20:00 Room Air 07/02/17 19:49 36.7 72 20 94/61 (72) 95 Room Air 07/02/17 16:00 Room Air 07/02/17 15:38 36.6 65 20 106/68 (81) 95 Room Air Last 24 Hours Test 07/02/17 14:44 07/03/17 06:01 White Blood Count 4.78 K/uL Red Blood Count 3.67 M/uL Hemoglobin 11.6 g/dL Hematocrit 34.0 % Mean Corpuscular Volume 92.6 fL Mean Corpuscular Hemoglobin 31.6 pg Mean Corpuscular Hemoglobin Concent 34.1 g/dl RDW Standard Deviation 44.8 fL RDW Coefficient of Variation 13.2 % Platelet Count 176 K/uL Mean Platelet Volume 10.3 fL Sodium Level 142 mmol/L Potassium Level 3.4 mmol/L Chloride Level 108 mmol/L Carbon Dioxide Level 25 mmol/L Anion Gap 9.0 mmol/L Blood Urea Nitrogen 10 mg/dl Creatinine 0.46 mg/dl Est Creatinine Clear Calc Drug Dose 184.8 ml/min Estimated GFR () > 150.0 Estimated GFR (Non- 130.8 BUN/Creatinine Ratio 20.8 Random Glucose 75 mg/dl Calcium Level 8.5 mg/dl Magnesium Level 1.8 mg/dl Procalcitonin < 0.05 ng/ml Imaging: no new imaging Exam: Gen: alert NAD lungs CTA CV RRR moving spontaneously in bed all extremities, giving high "5s" and holding a toy dog mute but is voicing some sounds today. Current Inpatient Medications Medications (Trade) Dose Ordered Sig/Porsha Route Start Time Stop Time Status Last Admin Dose Admin Enoxaparin Sodium (Lovenox Inj) 30 mg Q24H SQ 07/01/17 21:00 07/31/17 20:59 07/02/17 21:02 30 MG Acetaminophen (Tylenol Tab) 650 mg Q4H PRN PO 07/01/17 20:15 07/31/17 20:14 07/01/17 21:27 650 MG Ketorolac Tromethamine (Toradol Inj) 15 mg Q6H PRN IV. 07/01/17 20:15 07/06/17 20:14 Oxycodone/ Acetaminophen (Percocet 5-325mg Tab) 1 tab Q6H PRN PO 07/01/17 20:15 07/15/17 20:14 Prochlorperazine Edisylate 5 mg/ Syringe 5 ml @ 5 mls/min Q6H PRN IV 07/01/17 20:15 07/31/17 20:14 Lorazepam 1 mg/ Syringe 1 ml @ 0.5 mls/min Q5M PRN IV 07/01/17 20:15 07/31/17 20:14 07/02/17 12:06 0.5 MLS/MIN Cetirizine HCl (zyrTEC TAB) 10 mg DAILY PO 07/02/17 09:00 08/01/17 08:59 07/03/17 11:49 10 MG Clonazepam (Klonopin Tab) 0.25 mg HS PO 07/01/17 21:00 07/31/17 20:59 07/02/17 21:18 0.25 MG Docusate Sodium (coLACE CAP) 200 mg HS PO 07/01/17 21:00 07/31/17 20:59 07/02/17 21:01 200 MG Fluoxetine HCl (Prozac Cap) 40 mg QAM PO 07/02/17 09:00 08/01/17 08:59 07/03/17 09:53 40 MG Lorazepam (Ativan Tab) 0.5 mg TID PO 07/02/17 09:00 08/01/17 08:59 07/03/17 14:12 0.5 MG Multivitamins (Multivitamin Tab) 1 tab QAM PO 07/02/17 09:00 08/01/17 08:59 07/03/17 09:54 1 TAB Senna/Docusate Sodium (Senokot S Tab) 2 tab BID PO 07/01/17 21:00 07/31/17 20:59 07/03/17 11:49 2 TAB Psyllium Hydrophilic Mucilloid (Metamucil Powder) 1 pkt QPM PO 07/01/17 21:00 07/31/17 20:59 07/02/17 21:00 1 PKT Psyllium Hydrophilic Mucilloid (Metamucil Powder) 1 pkt QAM PO 07/02/17 09:00 08/01/17 08:59 07/03/17 09:52 1 PKT Lacosamide (Vimpat Tab) 200 mg BID PO 07/01/17 21:00 07/31/17 20:59 07/03/17 09:54 200 MG Lamotrigine (Lamictal Tab) 400 mg BID PO 07/01/17 20:45 07/31/17 20:44 07/03/17 09:54 400 MG Pantoprazole Sodium (Protonix Tab) 40 mg QAM PO 07/02/17 09:00 08/01/17 08:59 07/03/17 09:52 40 MG Phenobarbital (Phenobarbital Tab) 32.4 mg QAM PO 07/02/17 09:00 08/01/17 08:59 07/03/17 10:02 32.4 MG Polyethylene (Miralax Powder Packet) 17 gm DAILY PO 07/02/17 09:00 08/01/17 08:59 07/03/17 09:52 17 GM Ampicillin Sodium/ Sulbactam Sodium (Consult) 1 ea UD PRN N/A 07/02/17 09:00 08/01/17 08:59 Albuterol/ Ipratropium (Duoneb) 3 ml Q2H PRN INH 07/01/17 20:15 07/31/17 20:14 Ampicillin Sodium/ Sulbactam Sodium 3000 mg/Sodium Chloride 108 ml @ 216 mls/hr Q6H IV 07/02/17 00:00 07/09/17 00:00 07/03/17 11:49 216 MLS/HR Acetaminophen 650 mg/Empty Bag 65 ml @ 260 mls/hr Q6H PRN IV 07/02/17 12:45 08/01/17 12:44 Zonisamide (Zonegran) 300 mg HS PO 07/02/17 21:00 08/01/17 20:59 07/02/17 21:01 300 MG Phenobarbital (Phenobarbital Tab) 64.8 mg DAILY@1600 PO 07/02/17 16:00 08/01/17 15:59 07/02/17 16:21 64.8 MG Impression 51 year old male with recurrent seizures. Plan 1. no aid in room but patient appears to be at baseline 2. continue Lamictal 400 mg BID, Vimpat 200 mg BID, diazepam 5 mg PRN prn, Ativan 0.5mg TID, phenobarbital 32.4 am- 64.8 mg pm, Zonegran 300 mg hs 3. appears phenobarbital on med list is only being dosed am, if no reason to hold will add pm dosing 4. zonegran currently not on hospital formulary- detention brought and verified 5. ativan IV for seizure lasting more than 5 minutes or recurrent seizure x 3 6. fall precautions 7. encourage oral intake 8. phenobarbital level 27.6, ordered Zonegran and Lamictal level - will need to notify facility if any changes needed. follow up with Dr Mancera, neurology in 3-4 weeks or Nohelia Chan PAC schedule I have discussed above patient with Dr Nohelia Bailey, neurology MATTY Bailey MD
[2017-07-03 15:03] VITALS: BP 114/61; PULSE 78; TEMP 37.5; O2SAT 92
[2017-07-03] MEDS ORDERED: POTASSIUM CHLORIDE 10 MEQ TABCR PO ONE (15:15)
--- NOTE | 2017-07-03 15:39 | Progress Note ---
Medicine Progress Note Date & Time of Visit: Jul 03, 2017 at 15:31. Subjective patient seen resting in bed, awake, alert does "high five" with examiner not in distress, not coughing no signs of shortness of breath, pain afebrile since yesterday no seizures since yesterday evaluated by Neurology today- RODRIGUEZ Chan- relays to me that patient is now back to baseline Objective Last 8 Hrs Date Time Temp Pulse Resp B/P (MAP) Pulse Ox O2 Delivery O2 Flow Rate FiO2 07/03/17 15:03 37.5 78 16 114/61 (78) 92 Room Air 07/03/17 12:02 37.1 89 16 124/68 (86) 96 Room Air 07/03/17 08:00 Room Air 07/03/17 08:00 Room Air 07/03/17 07:59 37.0 55 16 94/57 (69) 93 Room Air Physical Exam: General- alert, awake, non verbal, cooperative with exam Head- atraumatic Eyes- PERRL, EOMI, anicteric ENT- oropharynx clear Neck- supple, no JVD, no adenopathy, no thyromegaly Lungs- clear breath sounds bilaterally, no rales/wheezes Heart- regular rhythm; no murmur, normal rarte Abdomen- normal bowel sounds, soft, nontender Extremities- no pretibial edema, no calf tenderness; peripheral pulses intact Neuro- alert, non verbal; moves extremities equally Skin- warm & dry Laboratory Results: Last 24 Hours Test 07/03/17 06:01 White Blood Count 4.78 K/uL Red Blood Count 3.67 M/uL Hemoglobin 11.6 g/dL Hematocrit 34.0 % Mean Corpuscular Volume 92.6 fL Mean Corpuscular Hemoglobin 31.6 pg Mean Corpuscular Hemoglobin Concent 34.1 g/dl RDW Standard Deviation 44.8 fL RDW Coefficient of Variation 13.2 % Platelet Count 176 K/uL Mean Platelet Volume 10.3 fL Sodium Level 142 mmol/L Potassium Level 3.4 mmol/L Chloride Level 108 mmol/L Carbon Dioxide Level 25 mmol/L Anion Gap 9.0 mmol/L Blood Urea Nitrogen 10 mg/dl Creatinine 0.46 mg/dl Est Creatinine Clear Calc Drug Dose 184.8 ml/min Estimated GFR () > 150.0 Estimated GFR (Non- 130.8 BUN/Creatinine Ratio 20.8 Random Glucose 75 mg/dl Calcium Level 8.5 mg/dl Magnesium Level 1.8 mg/dl Procalcitonin < 0.05 ng/ml Assessment & Plan RECURRENT SEIZURES H/O Profound Intellectual disability, Cerebral Palsy CT head:No acute intracranial abnormality evaluated by Neurologist Dr. Mancera/ RODRIGUEZ Chan Phenobarbital levels:27.6 no medication changes per Neurology Service Continue Vimpat, Phenobarbital, Lamictal, Zonisamide, Ativan FEVER, POSSIBLE ASPIRATION VS. ACUTE BRONCHITIS CXR:No acute process Blood cultures: negative Urine culture: negative evaluated by Speech Therapist, patient is a high aspiration risk Speech Therapy recommendations: * 1. Moist mechanical sft diet 2. Aspiration precautions, no straws. Fully upright for meals and for 30 minutes after meals. Do not lay flat, head of the bed to be elevated to 30 degrees at all times, even while sleeping. 3. Alternate solids and liquids. Only feel when awake, alert, and able to participate. 4. Oral care as tolerated prior to and after meals, and before bed. received IV Unasyn x 3 days continue 4 more days of Augmentin BID to complete 7 days of antibiotic therapy monitor respiratory status closely, monitor for recurrence of fever HYPOKALEMIA K 3.4 on day of discharge given KCL 40meq po x 1 dose repeat potassium level tomorrow, monitor regularly, replete accordingly H/O chronic constipation Continue bowel regimen H/O Testicular cancer S/P surgery H/O Profound Intellectual disability H/O cerebral palsy - back to baseline mental status as per Neurology DVT Px: Lovenox SQ given Code Status: DNR Disposition: Discharge back to the [facility] [place] ff up with Primary Care Physician in 3-5 days Contact Number for [employer] Developer:[phone] Current Inpatient Medications: Current Inpatient Medications Medications (Trade) Dose Ordered Sig/Porsha Route Start Time Stop Time Status Last Admin Dose Admin Enoxaparin Sodium (Lovenox Inj) 30 mg Q24H SQ 07/01/17 21:00 07/31/17 20:59 07/02/17 21:02 30 MG Acetaminophen (Tylenol Tab) 650 mg Q4H PRN PO 07/01/17 20:15 07/31/17 20:14 07/01/17 21:27 650 MG Ketorolac Tromethamine (Toradol Inj) 15 mg Q6H PRN IV. 07/01/17 20:15 07/06/17 20:14 Oxycodone/ Acetaminophen (Percocet 5-325mg Tab) 1 tab Q6H PRN PO 07/01/17 20:15 07/15/17 20:14 Prochlorperazine Edisylate 5 mg/ Syringe 5 ml @ 5 mls/min Q6H PRN IV 07/01/17 20:15 07/31/17 20:14 Lorazepam 1 mg/ Syringe 1 ml @ 0.5 mls/min Q5M PRN IV 07/01/17 20:15 07/31/17 20:14 07/02/17 12:06 0.5 MLS/MIN Cetirizine HCl (zyrTEC TAB) 10 mg DAILY PO 07/02/17 09:00 08/01/17 08:59 07/03/17 11:49 10 MG Clonazepam (Klonopin Tab) 0.25 mg HS PO 07/01/17 21:00 07/31/17 20:59 07/02/17 21:18 0.25 MG Docusate Sodium (coLACE CAP) 200 mg HS PO 07/01/17 21:00 07/31/17 20:59 07/02/17 21:01 200 MG Fluoxetine HCl (Prozac Cap) 40 mg QAM PO 07/02/17 09:00 08/01/17 08:59 07/03/17 09:53 40 MG Lorazepam (Ativan Tab) 0.5 mg TID PO 07/02/17 09:00 08/01/17 08:59 07/03/17 14:12 0.5 MG Multivitamins (Multivitamin Tab) 1 tab QAM PO 07/02/17 09:00 08/01/17 08:59 07/03/17 09:54 1 TAB Senna/Docusate Sodium (Senokot S Tab) 2 tab BID PO 07/01/17 21:00 07/31/17 20:59 07/03/17 11:49 2 TAB Psyllium Hydrophilic Mucilloid (Metamucil Powder) 1 pkt QPM PO 07/01/17 21:00 07/31/17 20:59 07/02/17 21:00 1 PKT Psyllium Hydrophilic Mucilloid (Metamucil Powder) 1 pkt QAM PO 07/02/17 09:00 08/01/17 08:59 07/03/17 09:52 1 PKT Lacosamide (Vimpat Tab) 200 mg BID PO 07/01/17 21:00 07/31/17 20:59 07/03/17 09:54 200 MG Lamotrigine (Lamictal Tab) 400 mg BID PO 07/01/17 20:45 07/31/17 20:44 07/03/17 09:54 400 MG Pantoprazole Sodium (Protonix Tab) 40 mg QAM PO 07/02/17 09:00 08/01/17 08:59 07/03/17 09:52 40 MG Phenobarbital (Phenobarbital Tab) 32.4 mg QAM PO 07/02/17 09:00 08/01/17 08:59 07/03/17 10:02 32.4 MG Polyethylene (Miralax Powder Packet) 17 gm DAILY PO 07/02/17 09:00 08/01/17 08:59 07/03/17 09:52 17 GM Ampicillin Sodium/ Sulbactam Sodium (Consult) 1 ea UD PRN N/A 07/02/17 09:00 08/01/17 08:59 Albuterol/ Ipratropium (Duoneb) 3 ml Q2H PRN INH 07/01/17 20:15 07/31/17 20:14 Ampicillin Sodium/ Sulbactam Sodium 3000 mg/Sodium Chloride 108 ml @ 216 mls/hr Q6H IV 07/02/17 00:00 07/09/17 00:00 07/03/17 11:49 216 MLS/HR Acetaminophen 650 mg/Empty Bag 65 ml @ 260 mls/hr Q6H PRN IV 07/02/17 12:45 08/01/17 12:44 Zonisamide (Zonegran) 300 mg HS PO 07/02/17 21:00 08/01/17 20:59 07/02/17 21:01 300 MG Phenobarbital (Phenobarbital Tab) 64.8 mg DAILY@1600 PO 07/02/17 16:00 08/01/17 15:59 07/02/17 16:21 64.8 MG
[2017-07-03] MEDS ORDERED: POTA10TA PO (15:49)
[2017-07-03] MEDS ORDERED: AMOX875T PO (15:49)
--- NOTE | 2017-07-03 16:01 | Discharge Instructions ---
Discharge Instructions Date of Service Jul 03, 2017. Admission Reason for Admission: Encephalopathy Discharge Discharge Diagnosis / Problem: RECURRENT SEIZURE, POSSIBLE ASPIRATION PNEUMONIA Discharge Goals Goal(s): Diagnostic testing, Therapeutic intervention Activity Recommendations Activity Level: Assistance Required Therapies: Physical Therapy, Occupational Therapy . Additional Information Patient informed of condition: No ([facility] informed) Advance Directives: No (Unknown) DNR: Yes Level of Care: Other ([facility]) Communicable Disease: No Prognosis: Stable Instructions / Follow-Up Instructions / Follow-Up REPEAT POTASSIUM TOMORROW THEN REGULARLY. REPLACE POTASSIUM ACCORDINGLY. PLEASE MONITOR RESPIRATORY STATUS. RETURN TO ER IMMEDIATELY IF WITH RECURRENCE OF SEIZURES. CALL PRIMARY CARE PHYSICIAN OR RETURN TO ER IMMEDIATELY IF WITH FEVER, COUGH, SHORTNESS OF BREATH, DIARRHEA. PLEASE FOLLOW SPEECH THERAPY RECOMMENDATIONS: Speech Therapy Discharge Instructions * 1. Moist mechanical sft diet 2. Aspiration precautions, no straws. Fully upright for meals and for 30 minutes after meals. Do not lay flat, head of the bed to be elevated to 30 degrees at all times, even while sleeping. 3. Alternate solids and liquids. Only feel when awake, alert, and able to participate. 4. Oral care as tolerated prior to and after meals, and before bed. FOLLOW UP WITH PRIMARY CAREP PHYSICIAN DR. RIVERA (ASSOCIATE OF DR. SERRATO) ON 07/05/17SundayAT 10:05 AM. FOLLOW UP WITH NEUROLOGIST DR. BRUNO SCHEDULED. PLEASE REFER TO ACCOMPANYING DISCHARGE SUMMARY FOR FULL DETAILS. Current Hospital Diet Patient's current hospital diet: Regular Diet Discharge Diet Recommended Diet: Regular Diet Diet Texture: Mechanical Soft (ground) Pending Studies Studies pending at discharge: yes List of pending studies: REPEAT POTASSIUM TOMORROW THEN REGULARLY. REPLACE POTASSIUM ACCORDINGLY. Physician Orders On Transfer Special Precautions: REPEAT POTASSIUM TOMORROW THEN REGULARLY. REPLACE POTASSIUM ACCORDINGLY. PLEASE MONITOR RESPIRATORY STATUS. RETURN TO ER IMMEDIATELY IF WITH RECURRENCE OF SEIZURES. CALL PRIMARY CARE PHYSICIAN OR RETURN TO ER IMMEDIATELY IF WITH FEVER, COUGH, SHORTNESS OF BREATH, DIARRHEA. PLEASE FOLLOW SPEECH THERAPY RECOMMENDATIONS: Speech Therapy Discharge Instructions * 1. Moist mechanical sft diet 2. Aspiration precautions, no straws. Fully upright for meals and for 30 minutes after meals. Do not lay flat, head of the bed to be elevated to 30 degrees at all times, even while sleeping. 3. Alternate solids and liquids. Only feel when awake, alert, and able to participate. 4. Oral care as tolerated prior to and after meals, and before bed. FOLLOW UP WITH PRIMARY CAREP PHYSICIAN DR. RIVERA (ASSOCIATE OF DR. SERRATO) ON 07/05/17SundayAT 10:05 AM. FOLLOW UP WITH NEUROLOGIST DR. BRUNO SCHEDULED. PLEASE REFER TO ACCOMPANYING DISCHARGE SUMMARY FOR FULL DETAILS. Medical Emergencies . Who to Call and When: Medical Emergencies: If at any time you feel your situation is an emergency, please call 911 immediately. . Non-Emergent Contact Non-Emergency issues call your: Primary Care Provider, Neurologist Call Non-Emergent contact if: you have a fever, you have any medication questions . . "Provider Documentation" section prepared by Petey Soto. . Core Measure Problem Core Measures: None
--- NOTE | 2017-07-03 16:08 | Discharge Summary ---
Discharge Summary Date of Service Jul 03, 2017. Discharge Summary Admission Date: Jul 01, 2017 at 19:37 Discharge Date: Jul 03, 2017 Discharge Disposition: Home Principal Diagnosis: RECURRENT SEIZURES Secondary Diagnoses/Problems: PLEASE REFER TO HOSPITAL COURSE BELOW. Procedures: CHEST ONE VIEW PORTABLE HISTORY: 51 years-old Male Sepsis acute sepsis COMPARISON: Chest radiograph 06/01/2017, CTA chest 06/01/2017 TECHNIQUE: Portable AP view of the chest FINDINGS: Cardiac silhouette is upper limits of normal in size, unchanged. There is no pneumothorax, pleural effusion, lobar airspace consolidation or overt pulmonary edema. Linear subsegmental bibasilar opacities are again noted suggesting areas of atelectasis/scarring. Sigmoidal scoliosis of the spine redemonstrated. Cortical thickening of the left clavicle suggests remote fracture. The bones of the chest appear grossly intact. Remote bilateral rib fractures are noted. IMPRESSION: No acute process. The above report was generated using voice recognition software. It may contain grammatical, syntax or spelling errors. Electronically signed by: Sarath Nova M.D. 07/01/2017 5:12 PM HEAD WITHOUT CONTRAST (CT) CLINICAL HISTORY: 51 years-old Male with change in ms. Acute altered mental status TECHNIQUE: Multiple axial CT images of the head were obtained without contrast. A dose lowering technique was utilized adhering to the principles of ALARA. CT DOSE: 614.27 mGy.cm COMPARISON: Head CT 06/01/2017, brain MRI 06/01/2017. FINDINGS: No acute intracranial hemorrhage, midline shift, intracranial mass, hydrocephalus, territorial ischemia or abnormal extra-axial collection. Mild atrophy. 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 Study is limited secondary to patient positioning. The calvarium is intact. The mastoid air cells, and middle ear cavities are clear. Moderate mucosal thickening of the ethmoid air cells. IMPRESSION: No acute intracranial abnormality. The above report was generated using voice recognition software. It may contain grammatical, syntax or spelling errors. Electronically signed by: Sarath Nova M.D. 07/01/2017 5:42 PM Consultations: NEUROLOGY DR. BRUNO Pending Studies/Follow-Up: REPEAT POTASSIUM TOMORROW THEN REGULARLY. REPLACE POTASSIUM ACCORDINGLY. PLEASE MONITOR RESPIRATORY STATUS. RETURN TO ER IMMEDIATELY IF WITH RECURRENCE OF SEIZURES. CALL PRIMARY CARE PHYSICIAN OR RETURN TO ER IMMEDIATELY IF WITH FEVER, COUGH, SHORTNESS OF BREATH, DIARRHEA. PLEASE FOLLOW SPEECH THERAPY RECOMMENDATIONS: Speech Therapy Discharge Instructions * 1. Moist mechanical sft diet 2. Aspiration precautions, no straws. Fully upright for meals and for 30 minutes after meals. Do not lay flat, head of the bed to be elevated to 30 degrees at all times, even while sleeping. 3. Alternate solids and liquids. Only feel when awake, alert, and able to participate. 4. Oral care as tolerated prior to and after meals, and before bed. FOLLOW UP WITH PRIMARY CAREP PHYSICIAN DR. RIVERA (ASSOCIATE OF DR. SERRATO) ON 07/05/17SundayAT 10:05 AM. FOLLOW UP WITH NEUROLOGIST DR. BRUNO SCHEDULED. PLEASE REFER TO ACCOMPANYING DISCHARGE SUMMARY FOR FULL DETAILS. Medication Reconciliation New Medications: Amoxicillin & Pot Clavulanate (Augmentin 875-125 mg) 1 Tab Tab 875 MG PO BID for 4 Days, #8 TABS 0 Refills Potassium Chloride (K-Tabs) 10 Meq Tab 4 TAB PO DAILY for 3 Days, #12 TAB 0 Refills Continued Medications: Calcium Carbonate-Vitamin D (Calcium + D) 1 Tab Tab 1 TAB PO BID Cetirizine (Zyrtec) 10 Mg Tab 10 MG PO DAILY, TAB Cholecalciferol (Vitamin D3) 1,000 Unit Tab 1000 INTER.UNIT PO BID, TAB Clonazepam (Klonopin) 0.5 Mg Tab 0.25 MG PO HS Diazepam (Anticonvulsant) (Diazepam Rectal Gel) 10 Mg Gel 5 MG RE UD PRN for SEIZURE GIVE FOR MORE THAN 3 SEIZURES, MAY REPEAT AFTER 6 HOURS OR SEIZURE LASTING MORE THAN 2 MINUTES. IF SEIZURE CONTINUE AFTER 2ND DOSE, REPORT TO EMERGENCY ROOM. Docusate Sodium (Stool Softener) 100 Mg Cap 200 MG PO HS HOLD FOR LOOSE STOOLS Fiber Laxative (Fiber Laxative) Ea 500 MG PO QAM Fiber Laxative (Fiber Laxative) Ea 1000 MG PO QPM Fluoxetine Hcl (Prozac) 40 Mg Cap 40 MG PO QAM, CAP Ketoconazole (Topical) (Ketoconazole) 2 % Sha 1 APPLN TOP 2XWK for 30 Days, #120 ML 1 Refill apply to scalp on and with shower Lacosamide (Vimpat) 200 Mg Tab 200 MG PO BID Lamotrigine (Lamictal) 200 Mg Tab 400 MG PO BID, TAB Lorazepam (Ativan) 0.5 Mg Tab 0.5 MG PO TID, TAB Multiple Vitamin (Daily Richi) 1 Tab Tab 1 TAB PO QAM Mupirocin 2% (Bactroban 2%) 30 Gm Cr 1 APPLN EXT UD PRN for skin irritation, TUBE Nystatin (Topical) (Nystatin) 1 Pow Pow 1 APPLN TD BID PRN for REDDENED AREAS. Omeprazole (Prilosec) 20 Mg Cap 20 MG PO QAM, CAP Phenobarbital (Phenobarbital) 64.8 Mg Tab 32.4 MG PO QAM Phenobarbital (Phenobarbital) 64.8 Mg Tab 64.8 MG PO DAILY@1600 Polyethylene Glycol 3350 (Bulk (Polyethylene Glycol 3350) 1 Pow Pow 17 GM PO DAILY, GM MIX IN 4-8 OUNCES OF LIQUID. HOLD FOR LOOSE STOOLS. Sennosides-Docusate Sodium (Sennalax-S) 1 Tab Tab 2 TAB PO BID Skin Protectants, Misc. (Hydrocerin) 1 Cre Cre 1 APPLN EXT BID Sorbitol (Laxative) (Sorbitol) 70 % Kiesha 20 ML PO DAILY HOLD FOR LOOSE STOOLS Zonisamide (Zonegran) 100 Mg Cap 300 MG PO HS Admission Information HPI (per Admitting provider): DATE OF ADMISSION: 07/01/2017 PRIMARY CARE DOCTOR: Dr. Serrato. CHIEF COMPLAINT: Altered mental status, seizures per records. HISTORY OF PRESENT ILLNESS: History obtained from patient's caregiver, records. Unable to obtain history from patient secondary to a nonverbal state. Medical history significant for seizure disorder, cerebral palsy, mental retardation, partial trisomy, aspiration risk, chronic anemia (baseline hemoglobin of 12-13), OCD as per records. Recent confinement last month for recurrent seizures. This morning patient noted to be febrile, cough symptoms noted. Patient had recurrent seizure as per caregiver. Typical seizure described by caregiver as patient's head shaking to the left for a few minutes. Decreased responsiveness after episode which is unusual as per caregiver. Patient had been seizure free for more than a week which actually was better than usual frequency. Brought to the Emergency Room. Patient received Zosyn. Physical Exam (per Admitting): VITAL SIGNS: Blood pressure was noted to be 105/46, pulse rate 70, RR 20, temperature 37.8, sats 97 on room air. GENERAL: Noted to be nonverbal. The patient blinking his eyes. No respiratory distress. Awake. SKIN: Pallor, warm. HEENT: Pale palpebral conjunctivae. No ptosis. Dry mucosa. NECK: Supple, nontender. CHEST: Decreased efforts, rhonchi on the left. HEART: Regular rate and rhythm, no murmur. ABDOMEN: Some distention, nontender. EXTREMITIES: No edema. chronic spastic contractures. NE : Awake, no ptosis, no facial asymmetry, gait and stance not assessed, no nuchal rigidity. Hospital Course RECURRENT SEIZURES H/O Profound Intellectual disability, Cerebral Palsy CT head:No acute intracranial abnormality evaluated by Neurologist Dr. Bruno/ RODRIGUEZ Chan Phenobarbital levels:27.6 no medication changes per Neurology Service Continue Vimpat, Phenobarbital, Lamictal, Zonisamide, Ativan FEVER, POSSIBLE ASPIRATION PNEUMONITIS CXR:No acute process Blood cultures: negative Urine culture: negative evaluated by Speech Therapist, patient is a high aspiration risk Speech Therapy recommendations: * 1. Moist mechanical sft diet 2. Aspiration precautions, no straws. Fully upright for meals and for 30 minutes after meals. Do not lay flat, head of the bed to be elevated to 30 degrees at all times, even while sleeping. 3. Alternate solids and liquids. Only feel when awake, alert, and able to participate. 4. Oral care as tolerated prior to and after meals, and before bed. received IV Unasyn x 3 days continue 4 more days of Augmentin BID to complete 7 days of antibiotic therapy monitor respiratory status closely, monitor for recurrence of fever HYPOKALEMIA K 3.4 on day of discharge given KCL 40meq po x 1 dose repeat potassium level tomorrow, monitor regularly, replete accordingly H/O chronic constipation Continue bowel regimen H/O Testicular cancer S/P surgery H/O Profound Intellectual disability H/O cerebral palsy - back to baseline mental status as per Neurology DVT Px: Lovenox SQ given Code Status: DNR Disposition: Discharge back to the [facility] ff up with Primary Care Physician in 3-5 days Contact Number for Electrical Installation Inspector:[phone] Total time spent on discharge = 40 MINS This includes examination of the patient, discharge planning, medication reconciliation, and communication with other providers. Discharge Instructions Discharge Instructions Date of Service Jul 03, 2017. Admission Reason for Admission: Encephalopathy Discharge Discharge Diagnosis / Problem: RECURRENT SEIZURE, POSSIBLE ASPIRATION PNEUMONIA Discharge Goals Goal(s): Diagnostic testing, Therapeutic intervention Activity Recommendations Activity Level: Assistance Required Therapies: Physical Therapy, Occupational Therapy . Additional Information Patient informed of condition: No ([facility] informed) Advance Directives: No (Unknown) DNR: Yes Level of Care: Other ([facility]) Communicable Disease: No Prognosis: Stable Instructions / Follow-Up Instructions / Follow-Up REPEAT POTASSIUM TOMORROW THEN REGULARLY. REPLACE POTASSIUM ACCORDINGLY. PLEASE MONITOR RESPIRATORY STATUS. RETURN TO ER IMMEDIATELY IF WITH RECURRENCE OF SEIZURES. CALL PRIMARY CARE PHYSICIAN OR RETURN TO ER IMMEDIATELY IF WITH FEVER, COUGH, SHORTNESS OF BREATH, DIARRHEA. PLEASE FOLLOW SPEECH THERAPY RECOMMENDATIONS: Speech Therapy Discharge Instructions * 1. Moist mechanical sft diet 2. Aspiration precautions, no straws. Fully upright for meals and for 30 minutes after meals. Do not lay flat, head of the bed to be elevated to 30 degrees at all times, even while sleeping. 3. Alternate solids and liquids. Only feel when awake, alert, and able to participate. 4. Oral care as tolerated prior to and after meals, and before bed. FOLLOW UP WITH PRIMARY CAREP PHYSICIAN DR. RIVERA (ASSOCIATE OF DR. SERRATO) ON 07/05/17SundayAT 10:05 AM. FOLLOW UP WITH NEUROLOGIST DR. BRUNO SCHEDULED. PLEASE REFER TO ACCOMPANYING DISCHARGE SUMMARY FOR FULL DETAILS. Current Hospital Diet Patient's current hospital diet: Regular Diet Discharge Diet Recommended Diet: Regular Diet Diet Texture: Mechanical Soft (ground) Pending Studies Studies pending at discharge: yes List of pending studies: REPEAT POTASSIUM TOMORROW THEN REGULARLY. REPLACE POTASSIUM ACCORDINGLY. Physician Orders On Transfer Special Precautions: REPEAT POTASSIUM TOMORROW THEN REGULARLY. REPLACE POTASSIUM ACCORDINGLY. PLEASE MONITOR RESPIRATORY STATUS. RETURN TO ER IMMEDIATELY IF WITH RECURRENCE OF SEIZURES. CALL PRIMARY CARE PHYSICIAN OR RETURN TO ER IMMEDIATELY IF WITH FEVER, COUGH, SHORTNESS OF BREATH, DIARRHEA. PLEASE FOLLOW SPEECH THERAPY RECOMMENDATIONS: Speech Therapy Discharge Instructions * 1. Moist mechanical sft diet 2. Aspiration precautions, no straws. Fully upright for meals and for 30 minutes after meals. Do not lay flat, head of the bed to be elevated to 30 degrees at all times, even while sleeping. 3. Alternate solids and liquids. Only feel when awake, alert, and able to participate. 4. Oral care as tolerated prior to and after meals, and before bed. FOLLOW UP WITH PRIMARY CAREP PHYSICIAN DR. RIVERA (ASSOCIATE OF DR. SERRATO) ON 07/05/17SundayAT 10:05 AM. FOLLOW UP WITH NEUROLOGIST DR. BRUNO SCHEDULED. PLEASE REFER TO ACCOMPANYING DISCHARGE SUMMARY FOR FULL DETAILS. Medical Emergencies . Who to Call and When: Medical Emergencies: If at any time you feel your situation is an emergency, please call 911 immediately. . Non-Emergent Contact Non-Emergency issues call your: Primary Care Provider, Neurologist Call Non-Emergent contact if: you have a fever, you have any medication questions . . "Provider Documentation" section prepared by Petey Soto. . Core Measure Problem Core Measures: None
[2017-07-03 16:38] VITALS: BP 114/61; PULSE 78; TEMP 37.5; O2SAT 92
== END 2017-07-03 17:45 | disposition other institution (70) | DRG 100 ==
LOC: EDBD 16:18 → C.EDC 16:19 → C.MED 19:37 → ENRESERV 19:48
PROVIDERS: ADMIT Internal Medicine; ATTEND Internal Medicine
DX: G40.909 Epilepsy, unspecified, not intractable, without status epilepticus (principal); G93.40 Encephalopathy, unspecified; J69.0 Pneumonitis due to inhalation of food and vomit; F73 Profound intellectual disabilities; G80.9 Cerebral palsy, unspecified; Q92.9 Trisomy and partial trisomy of autosomes, unspecified; K21.9 Gastro-esophageal reflux disease without esophagitis; E03.9 Hypothyroidism, unspecified; D64.9 Anemia, unspecified; K59.00 Constipation, unspecified; E87.6 Hypokalemia; Z66 Do not resuscitate; Z79.899 Other long term (current) drug therapy; Z85.47 Personal history of malignant neoplasm of testis; Z88.1 Allergy status to other antibiotic agents; Z88.8 Allergy status to other drugs, medicaments and biological substances

== ENCOUNTER 2017-07-29 12:46 | Emergency (ER) | payer OTHER ==
[~2017-07-29 12:46] MED LIST changes: -AMOX1TAB42 PO; +AMOX875T PO; +NYST1POW7 TD; -OMEP20CA59 PO; +OMEP20CA9 PO; +POTA10TA PO
[2017-07-29 13:00] VITALS: TEMP 36.6
[2017-07-29 14:14] LABS: BASO % 0.5 %; BASO ABS # 0.02 K/uL (0-0.2); EOS % 3.4 %; EOS ABS # 0.14 K/uL (0-0.5); HEMATOCRIT 36.4 % (42-52); HEMOGLOBIN 12.4 g/dL (14.0-18.0); IG# 0.01 K/uL (0.00-0.02); LYMPH % 27.3 %; LYMPH ABS # 1.12 K/uL (1.2-3.4); MEAN CELL VOLUME 91.7 fL (80-100); MEAN CORPUSCULAR HEMOGLOBIN 31.2 pg (25-34); MEAN CORPUSCULAR HGB CONC 34.1 g/dl (32-36); MEAN PLATELET VOLUME 10.6 fL (7.4-10.4); MONO % 10.7 %; MONO ABS # 0.44 K/uL (0.11-0.59); NEUT % 57.9 %; NEUT ABS # 2.37 K/uL (1.4-6.5); PLATELET COUNT 163 K/uL (130-400)
[2017-07-29 14:27] LABS: PTT PATIENT 25.4 SECONDS (21.0-31.0)
[2017-07-29 14:32] LABS: BLOOD UREA NITROGEN 14 mg/dl (7-18); CALCIUM 8.5 mg/dl (8.5-10.1); CARBON DIOXIDE 26 mmol/L (21-32); CREATININE 0.71 mg/dl (0.60-1.40); GLUCOSE 90 mg/dl (70-99); POTASSIUM 3.7 mmol/L (3.5-5.1); SODIUM 141 mmol/L (136-145)
--- NOTE | 2017-07-29 14:36 | DIAGNOSTIC IMAGING REPORT ---
HEAD WITHOUT CONTRAST (CT) CLINICAL HISTORY: 52 years-old Male presenting with EVALUATE ALTERED MENTAL STATUS/WEAKNESS. TECHNIQUE: Multidetector CT imaging of the head was performed without the use of intravenous contrast. IV contrast: None. A dose lowering technique was used consistent with the principles of ALARA (as low as reasonably achievable). COMPARISON: 07/01/2017. CT DOSE (mGy.cm): The estimated cumulative dose is 1074.96 mGy.cm. FINDINGS: Image quality is significantly degraded by motion artifact, which dramatically limits diagnostic sensitivity the exam. [employer] Programmer Analyst topogram: Unremarkable. Ventricles grossly normal in size. No large hemorrhage. No midline shift. No large extra-axial fluid collection. Paranasal sinuses and mastoid air cells clear. Calvarium intact. IMPRESSION: 1. Extremely limited examination secondary to severe motion artifact. No gross evidence of acute intracranial pathology. Electronically signed by: Shane Mcdaniel M.D. 07/29/2017 2:35 PM Dictated Date/Time: 07/29/2017 2:33 PM
[2017-07-29 14:37] LABS: CKMB 0.7 ng/ml (0.5-3.6)
--- NOTE | 2017-07-29 14:57 | EMERGENCY ROOM VISIT NOTE ---
History Report prepared by Scribe: Patricia Degroot Under the Supervision of: Dr. Brian Lebron D.O. First contact with patient: 13:18 Chief Complaint: SEIZURE Stated Complaint: SEIZURE History of Present Illness The patient is a 52 year old male who presents to the Emergency Room with complaints of seizure like activity that occurred prior to arrival. He was brought to the ED via EMS from the [place] [facility] where he resides. His caretakers state the seizure activity today was not his typical seizure. They report the patient normally "tenses up" and moves around a lot during his seizure. This morning, he was sitting in his wheelchair, making "slurred moaning noises", and was able to make direct eye contact during the episode, which he normally does not do during a seizure. He was slow to respond to caretakers after the episode and they state "something is still not right". The patient has been afebrile. He cannot ambulate normally and uses a wheelchair, but is usually able to "roll himself around where he needs to go". He also uses sign language as he is nonverbal. The patient was able to take his normal medications this morning without difficulty. 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 A total of 10 systems reviewed and were otherwise negative. 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 Social History Smoking Status: Never Smoker Alcohol Use: none Drug Use: none Marital Status: single Housing Status: assisted living Occupation Status: disabled Current/Historical Medications Scheduled Calcium Carbonate-Vitamin D (Calcium + D), 1 TAB PO BID Cetirizine (Zyrtec), 10 MG PO DAILY Cholecalciferol (Vitamin D3), 1,000 INTER.UNIT PO BID Clonazepam (Klonopin), 0.25 MG PO HS Docusate Sodium (Stool Softener), 200 MG PO HS Fiber Laxative (Fiber Laxative), 500 MG PO QAM Fiber Laxative (Fiber Laxative), 1,000 MG PO QPM Fluoxetine Hcl (Prozac), 40 MG PO QAM Ketoconazole (Topical) (Ketoconazole), 1 APPLN TOP 2XWK Lacosamide (Vimpat), 200 MG PO BID Lamotrigine (Lamictal), 400 MG PO BID Lorazepam (Ativan), 0.5 MG PO TID Multiple Vitamin (Daily Richi), 1 TAB PO QAM Omeprazole (Prilosec), 20 MG PO QAM Phenobarbital (Phenobarbital), 32.4 MG PO QAM Phenobarbital (Phenobarbital), 64.8 MG PO DAILY@1600 Polyethylene Glycol 3350 (Bulk (Polyethylene Glycol 3350), 17 GM PO DAILY Potassium Chloride (K-Tabs), 4 TAB PO DAILY Sennosides-Docusate Sodium (Sennalax-S), 2 TAB PO BID Skin Protectants, Misc. (Hydrocerin), 1 APPLN EXT BID Sorbitol (Laxative) (Sorbitol), 20 ML PO DAILY Zonisamide (Zonegran), 300 MG PO HS Scheduled PRN Diazepam (Anticonvulsant) (Diazepam Rectal Gel), 5 MG RE UD PRN for SEIZURE Mupirocin 2% (Bactroban 2%), 1 APPLN EXT UD PRN for skin irritation Nystatin (Topical) (Nystatin), 1 APPLN TD BID PRN for REDDENED AREAS. Allergies Coded Allergies: Acyclovir (Verified Allergy, Unknown, 07/29/17) Benztropine (Verified Allergy, Unknown, 07/29/17) Benzyl Alcohol (Unverified Allergy, Unknown, ., 07/29/17) Cephalexin (Unverified Allergy, Unknown, ., 07/29/17) Cephalosporins (Verified Allergy, Unknown, CEPHALEXIN, 07/29/17) Erythromycin (Verified Allergy, Unknown, 07/29/17) Glycopyrrolate (Unverified Allergy, Unknown, ., 07/29/17) Macrolides and Ketolides (Unverified Allergy, Unknown, ., 07/29/17) Mepenzolate (Unverified Allergy, Unknown, ., 07/29/17) Methscopolamine (Unverified Allergy, Unknown, ., 07/29/17) Neomycin (Verified Allergy, Unknown, unknown, 07/29/17) Propantheline (Unverified Allergy, Unknown, ., 07/29/17) Physical Exam Vital Signs Date Time Temp Pulse Resp B/P (MAP) Pulse Ox O2 Delivery O2 Flow Rate FiO2 07/29/17 14:39 70 20 101/45 97 Room Air 07/29/17 13:08 69 07/29/17 13:00 36.6 71 20 121/46 96 Room Air Physical Exam CONSTITUTIONAL/VITAL SIGNS: Reviewed / noted above. GENERAL: Non-toxic in appearance. INTEGUMENTARY: Warm, dry, and [place]. HEAD: Normocephalic. EYES: without scleral icterus or trauma. Pupils are symmetric and equal and mid position. ENT/OROPHARYNX: clear and moist. LYMPHADENOPATHY/NECK: Is supple without lymphadenopathy or meningismus. RESPIRATORY: Lungs clear and equal. CARDIOVASCULAR: Regular rate and rhythm. GI/ABDOMEN: Soft and nontender. No organomegaly or pulsatile mass. No rebound or guarding. Normal bowel sounds. EXTREMITIES: Warm and well perfused. BACK: No CVA tenderness. NEUROLOGICAL: Patient is nonverbal, grimaces on occasion. Stiffness in bilateral lower extremities, likely due to being bedbound and non-ambulatory. PSYCHIATRIC: normal affect. MUSCULOSKELETAL: Normally developed with good muscle tone. Medical Decision & Procedures ER Provider Diagnostic Interpretation: Radiology results as stated below per my review and radiologist interpretation: HEAD WITHOUT CONTRAST (CT) CLINICAL HISTORY: 52 years-old Male presenting with EVALUATE ALTERED MENTAL STATUS/WEAKNESS. TECHNIQUE: Multidetector CT imaging of the head was performed without the use of intravenous contrast. IV contrast: None. A dose lowering technique was used consistent with the principles of ALARA (as low as reasonably achievable). COMPARISON: 07/01/2017. CT DOSE (mGy.cm): The estimated cumulative dose is 1074.96 mGy.cm. FINDINGS: Image quality is significantly degraded by motion artifact, which dramatically limits diagnostic sensitivity the exam. Brick Layer topogram: Unremarkable. Ventricles grossly normal in size. No large hemorrhage. No midline shift. No large extra-axial fluid collection. Paranasal sinuses and mastoid air cells clear. Calvarium intact. IMPRESSION: 1. Extremely limited examination secondary to severe motion artifact. No gross evidence of acute intracranial pathology. Electronically signed by: Shane Mcdaniel M.D. 07/29/2017 2:35 PM Laboratory Results 07/29/17 13:44 Red Blood Count 3.97, Mean Corpuscular Volume 91.7, Mean Corpuscular Hemoglobin 31.2, Mean Corpuscular Hemoglobin Concent 34.1, Mean Platelet Volume 10.6, Neutrophils (%) (Auto) 57.9, Lymphocytes (%) (Auto) 27.3, Monocytes (%) (Auto) 10.7, Eosinophils (%) (Auto) 3.4, Basophils (%) (Auto) 0.5, Neutrophils # (Auto ) 2.37, Lymphocytes # (Auto) 1.12, Monocytes # (Auto) 0.44, Eosinophils # (Auto ) 0.14, Basophils # (Auto) 0.02 07/29/17 13:44 Test 07/29/17 13:44 07/29/17 14:15 White Blood Count 4.10 K/uL (4.8-10.8) Red Blood Count 3.97 M/uL (4.7-6.1) Hemoglobin 12.4 g/dL (14.0-18.0) Hematocrit 36.4 % (42-52) Mean Corpuscular Volume 91.7 fL (80-100) Mean Corpuscular Hemoglobin 31.2 pg (25-34) Mean Corpuscular Hemoglobin Concent 34.1 g/dl (32-36) Platelet Count 163 K/uL (130-400) Mean Platelet Volume 10.6 fL (7.4-10.4) Neutrophils (%) (Auto) 57.9 % Lymphocytes (%) (Auto) 27.3 % Monocytes (%) (Auto) 10.7 % Eosinophils (%) (Auto) 3.4 % Basophils (%) (Auto) 0.5 % Neutrophils # (Auto) 2.37 K/uL (1.4-6.5) Lymphocytes # (Auto) 1.12 K/uL (1.2-3.4) Monocytes # (Auto) 0.44 K/uL (0.11-0.59) Eosinophils # (Auto) 0.14 K/uL (0-0.5) Basophils # (Auto) 0.02 K/uL (0-0.2) RDW Standard Deviation 44.0 fL (36.4-46.3) RDW Coefficient of Variation 13.0 % (11.5-14.5) Immature Granulocyte % (Auto) 0.2 % Immature Granulocyte # (Auto) 0.01 K/uL (0.00-0.02) Prothrombin Time 10.4 SECONDS (9.0-12.0) Prothromb Time International Ratio 1.0 (0.9-1.1) Activated Partial Thromboplast Time 25.4 SECONDS (21.0-31.0) Partial Thromboplastin Ratio 1.0 Anion Gap 6.0 mmol/L (3-11) Estimated GFR () 125.9 Estimated GFR (Non- 108.6 BUN/Creatinine Ratio 19.4 (10-20) Calcium Level 8.5 mg/dl (8.5-10.1) Magnesium Level 1.8 mg/dl (1.8-2.4) Total Creatine Kinase 52 U/L (39-308) Creatine Kinase MB 0.7 ng/ml (0.5-3.6) Creatine Kinase MB Ratio 1.3 (0-3.0) Troponin I < 0.015 ng/ml (0-0.045) Phenobarbital Level 24.1 mcg/mL (15.0-40.0) Urine Color YELLOW Urine Appearance CLEAR (CLEAR) Urine pH 6.5 (4.5-7.5) Urine Specific [place] 1.021 (1.000-1.030) Urine Protein NEG (NEG) Urine Glucose (UA) NEG (NEG) Urine Ketones NEG (NEG) Urine Occult Blood NEG (NEG) Urine Nitrite NEG (NEG) Urine Bilirubin NEG (NEG) Urine Urobilinogen NEG (NEG) Urine Leukocyte Esterase NEG (NEG) Urine WBC (Auto) 0 /hpf (0-5) Urine RBC (Auto) 0-4 /hpf (0-4) Urine Hyaline Casts (Auto) 0 /lpf (0-5) Urine Epithelial Cells (Auto) 0-5 /lpf (0-5) Urine Bacteria (Auto) NEG (NEG) Laboratory results as stated above per my review. ECG Per My Interpretation Indication: weakness Rate (beats per minute): 55 Rhythm: sinus rhythm Findings: no ectopy, other (no ST elevation) ED Course 1324: Previous medical records were reviewed. The patient was evaluated in room C10. A complete history and physical examination was performed. 1453: On reevaluation, the patient is resting comfortably. I discussed the results and findings with the patient. His caregivers verbalized agreement of the treatment plan. The patient was discharged home. Medical Decision Differentials include: Acute coronary syndrome, myocardial infarction, CVA, TIA , anemia, infection, pneumonia, UTI, pyelonephritis, poor nutrition, dehydration , electrolyte disturbance, and hypoglycemia. This is a 52-year-old male who presents to the ED with a chief complaint of possible seizure-like activity. The patient resides at a [place] [facility] because of his baseline MR. The patient is normally nonconversant and non-ambulatory. The staff states that he had some unusual activity today that did not seem seizure-like. They reported that he was making some groaning noises that he typically does not make and was swallowing harder and making a sound with swallowing that he does not usually do. The patient's vital signs here are normal. His physical exam reveals a chronically bedbound appearing patient who is awake and does have some reaction to stimulus. He is nonverbal at baseline. A CT scan of the brain did not show acute process. CBC is unremarkable as is a PRP. Troponin was negative, urine did not show infection. EKG showed a sinus rhythm at a rate of 55. Phenobarbital level is within normal limits. Chest x-ray was unable to be performed because of lack of cooperation from the patient. His lungs are clear however and his pulse ox is fine. I do not suspect a pulmonary pathology as a cause for the patient's symptoms today. The patient is felt to be stable for discharge. Of note, the patient has been admitted 3 times in the past 3 months with similar evaluations. Each time he has been admitted the discharge diagnosis has been related to seizures. Medication Reconcilliation Current Medication List: was personally reviewed by me Blood Pressure Screening Patient's blood pressure: Low blood pressure Impression Primary Impression: Seizure-like activity Scribe Attestation The scribe's documentation has been prepared under my direction and personally reviewed by me in its entirety. I confirm that the note above accurately reflects all work, treatment, procedures, and medical decision making performed by me. Departure Information Dispostion Home / Self-Care Referrals Soila Morales D.O. (PCP) Patient Instructions My [facility] Additional Instructions Follow-up with your doctor for further care and evaluation in 1-2 days. Return to the emergency department for worsening or new symptoms or any concerns. You have been examined and treated today on an emergency basis only. This is not a substitute for, or an effort to provide, complete comprehensive medical care. It is impossible to recognize and treat all injuries or illnesses in a single emergency department visit. It is therefore important that you follow up closely with your doctor. Call as soon as possible for an appointment.
[2017-07-29 15:23] VITALS: BP 111/54; PULSE 78; O2SAT 95
== END 2017-07-29 15:24 | disposition home or self-care (01) ==
LOC: EDBD 12:46 → C.EDC 12:47
DX: R56.9 Unspecified convulsions (principal); F41.9 Anxiety disorder, unspecified; G80.9 Cerebral palsy, unspecified; E03.9 Hypothyroidism, unspecified; K21.9 Gastro-esophageal reflux disease without esophagitis; Z88.8 Allergy status to other drugs, medicaments and biological substances

== ENCOUNTER 2018-05-02 16:52 | Inpatient (IN) ==
[2018-05-02] MEDS ORDERED: SODIUM CHLORIDE 0.9% 1000ML 1,000 ML IV SCH (17:15)
[2018-05-02 17:31] LABS: Basophils # (auto) 0.01 K/uL (0-0.2); Basophils % (auto) 0.1 %; Eosinophils # (auto) 0.01 K/uL (0-0.5); Eosinophils % (auto) 0.1 %; Hematocrit (blood only) 39.4 % (42-52); Hemoglobin 13.2 g/dL (14.0-18.0); Immature Granulocytes # (auto) 0.04 K/uL (0.00-0.02); Immature Granulocytes % (auto) 0.4 %; Lymphocytes # (auto) 0.31 K/uL (1.2-3.4); Lymphocytes % (auto) 2.8 %; Mean Corpuscular Hgb Conc 33.5 g/dL (32-36); Mean Corpuscular Volume 94.3 fL (80-100); Mean Platelet Volume 11.3 fL (7.4-10.4); Monocytes # (auto) 1.27 K/uL (0.11-0.59); Monocytes % (auto) 11.4 %; Neutrophils # (auto) 9.54 K/uL (1.4-6.5); Neutrophils % (auto) 85.2 %; Platelet Count 162 K/uL (130-400); RDW Coefficient of Variation 13.2 % (11.5-14.5); RDW Standard Deviation 45.3 fL (36.4-46.3); Red Blood Count 4.18 M/uL (4.7-6.1); White Blood Count 11.18 K/uL (4.8-10.8)
[2018-05-02] MEDS ORDERED: SODIUM CHLORIDE 0.9% 1000ML 2,000 ML IV ONE (17:34)
[2018-05-02 17:38] LABS: INR 1.1 (0.9-1.1); Prothrombin Time 10.6 Seconds (9.0-12.0)
[2018-05-02 17:42] LABS: iSTAT Creatinine 0.6 mg/dl (0.6-1.3); iSTAT Hemoglobin 12.2 g/dl (14.0-18.0); iSTAT Ionized Calcium 1.07 mmol/l (1.12-1.32); iSTAT Potassium 3.6 mEq/L (3.3-5.0)
[2018-05-02 17:47] LABS: Oxygen Saturation VBG 75.4 %; pH VBG 7.36 (7.36-7.41)
--- NOTE | 2018-05-02 18:00 | XRay Report ---
XR chest 1V portable HISTORY: Cough. Atypical Chest Pain COMPARISON: Chest 10/27/2017. FINDINGS: Rotated study. No pneumothorax. No pleural effusions. Scoliosis persists. Old, healed bilat eral rib fractures. The right lung is clear. Small left retrocardiac patchy airspace opacity. IMPRESSION: Small left retrocardiac patchy airspace opacity. This nonspecific and could represent atelectasis or pneumonia. Electronically signed by: Oumar Mendoza M.D. 05/02/2018 5:59 PM
[2018-05-02] MEDS ORDERED: PIPERACILLIN/TAZOBACTAM 4.5 GM/120 ML BAG IV ONE (18:04)
[2018-05-02] MEDS ORDERED: VANCOMYCIN CONSULT ACTIVE PRN (18:04)
[2018-05-02] MEDS ORDERED: VANCOMYCIN HCL 1,250 MG in SODIUM CHLORIDE 0.9% 500 ML IV ONE (18:04)
[2018-05-02 18:19] LABS: Alanine Aminotransferase 22 U/L (12-78); Albumin Level 3.1 gm/dl (3.4-5.0); Alkaline Phosphatase 148 U/L (45-117); Aspartate Aminotransferase 19 U/L (15-37); BUN Creatinine Ratio 23.5 (10-20); Bilirubin,Total 0.4 mg/dl (0.2-1); Blood Urea Nitrogen 18 mg/dl (7-18); Calcium 8.6 mg/dl (8.5-10.1); Carbon Dioxide 20 mmol/L (21-32); Chloride 112 mmol/L (98-107); Est GFR (African American) 122.4; Est GFR (Non-African American) 105.6; Globulin 3.3 gm/dl (2.5-4.0); Glucose 123 mg/dl (70-99); Magnesium 1.7 mg/dl (1.8-2.4); Phosphorus 2.5 mg/dl (2.5-4.9); Potassium 3.7 mmol/L (3.5-5.1); Sodium 140 mmol/L (136-145); Total Protein 6.4 gm/dl (6.4-8.2); Troponin I < 0.015 ng/ml (0-0.045)
[2018-05-02 18:33] LABS: Bilirubin Direct < 0.1 mg/dl (0-0.2)
[2018-05-02] MEDS ORDERED: PIPERACILL/TAZOBAC CONSULT ACTIVE PRN (19:21)
[2018-05-02] MEDS ORDERED: clonazePAM 1 MG TAB PO PRN (19:29)
[2018-05-02] MEDS ORDERED: LACOSAMIDE 200 MG in SODIUM CHLORIDE 0.9% 50 ML IV ONE (19:30)
[2018-05-02] MEDS ORDERED: PIPERACILLIN/TAZOBACTAM 4.5 GM/120 ML BAG IV SCH (19:30)
[2018-05-02] MEDS ORDERED: PATIENT'S HEIGHT AND/OR WEIGHT NEEDED SCH (19:45)
--- NOTE | 2018-05-02 20:09 | History & Physical Report ---
Date of Service May 02, 2018 Assessment & Plan (1) Aspiration pneumonia: Following 2 episodes of seizures in AM Left lower lobe IV Vanco and Zosyn were started Likely to change to oral Augmentin when appropriate Blood cultures were taken Aspiration precaution (2) Recurrent seizures: Has been on Multiple anti-seizure medications ER physician did discuss with the Neurologist Will give 200 mg of Lacosamide tonight and clonopin ODT PRN for tonight Antiepileptic level has been sent Neurology consulted Likely to start usual oral meds from tomorrow AM (3) Cerebral palsy: Has severe mental retardation Bedbound and wheelchair-bound from the disease- (4) Encephalopathy: Likely secondary to Pneumonia and Fever Noted to have more seizure activity with fever as from prior admission DVT Prophylaxis SCDs for now Family members could not be reached History of Present Illness Chief Complaint: Similar problems to this morning and change in mental status this afternoon History taken from the caregiver Primary Care Provider: Soila Morales He is a 52-year-old male with 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 He was also noted to have fever 101 F around 3 or 3:30 PM at the time he was noted to have more change in mental status. He was less arousable following the seizure as well. In the ER he was noted to have borderline elevation of white count and chest x- ray did show left lower lobe infiltration likely secondary to aspiration. He has had incontinence with the seizure and he has had postictal state as well. Did not have any significant distress during examination in the emergency room. Allergies Allergy/AdvReac Type Severity Reaction Status Date / Time acyclovir Allergy Unknown Verified 05/02/18 18:25 benztropine Allergy Unknown Verified 05/02/18 18:25 benzyl alcohol Allergy Unknown . Verified 05/02/18 18:25 cephalexin Allergy Unknown . Verified 05/02/18 18:25 Cephalosporins Allergy Unknown CEPHALEXIN Verified 05/02/18 18:25 erythromycin base Allergy Unknown Verified 05/02/18 18:25 glycopyrrolate Allergy Unknown . Verified 05/02/18 18:25 Macrolide Antibiotics Allergy Unknown . Verified 05/02/18 18:25 neomycin Allergy Unknown unknown Verified 05/02/18 18:25 propantheline Allergy Unknown . Verified 05/02/18 18:25 Mepenzolate Allergy Unknown . Uncoded 05/02/18 18:25 Methscopolamine Allergy Unknown . Uncoded 05/02/18 18:25 Home Medications Home Medications Medication Instructions Recorded Confirmed Type Fiber-Lax 500 Mg 1,000 mg PO QPM 05/02/18 05/02/18 History Fiber-Lax 500mg 500 mg PO QAM 05/02/18 05/02/18 History calcium carbonate-vitamin D3 1 tab PO BID 05/02/18 05/02/18 History [Calcium 600 + D(3)] cetirizine 10 mg PO DAILY 05/02/18 05/02/18 History cholecalciferol (vitamin D3) 1,000 unit PO BID 05/02/18 05/02/18 History [Vitamin D3] clonazepam 0.5 mg PO TID 05/02/18 05/02/18 History docusate sodium [Stool Softener] 200 mg PO HS 05/02/18 05/02/18 History fluoxetine [Prozac] 40 mg PO DAILY 05/02/18 05/02/18 History ketoconazole [Nizoral] 1 applic TOPICAL 2XWK 05/02/18 05/02/18 History lacosamide [Vimpat] 200 mg PO BID 05/02/18 05/02/18 History lamotrigine 400 mg PO BID 05/02/18 05/02/18 History multivitamin 1 tab PO DAILY 05/02/18 05/02/18 History mupirocin 1 applic TOPICAL BID PRN 05/02/18 05/02/18 History nystatin [Nystop] 1 applic TOPICAL BID PRN 05/02/18 05/02/18 History omeprazole 20 mg PO DAILY 05/02/18 05/02/18 History phenobarbital 32.4 mg PO QAM 05/02/18 05/02/18 History phenobarbital 64.8 mg PO DAILY 05/02/18 05/02/18 History polyethylene glycol 3350 [Miralax] 17 g PO DAILY 05/02/18 05/02/18 History potassium chloride 40 meq PO DAILY 05/02/18 05/02/18 History sennosides-docusate sodium [Stool 2 tab PO BID 05/02/18 05/02/18 History Softener-Laxative] sorbitol 20 ml PO DAILY 05/02/18 05/02/18 History white petrolatum-mineral oil 1 applic TOPICAL BID 05/02/18 05/02/18 History [Hydrocerin (with petrolatum)] zonisamide [Zonegran] 400 mg PO QPM 05/02/18 05/02/18 History Past Med/Surg History Medical History Encephalopathy Recurrent seizures Sepsis (Resolved) 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 Social History Current Living Situation: Other Current Living Situation Comment: Long-Term Other Information That Helps Us Care for You: No Feels Safe at Home: Yes Smoking Status: Unknown if ever smoked Hx Alcohol Use: No Hx Substance Use: No Beliefs That Will Affect Care: None Communication Ability: Impaired Review of Systems Unobtainable due to mental health condition Physical Exam 2 Vital Signs (Past 24 Hours): Last Vital Signs Temp 37.9 C H 05/02/18 17:00 Pulse 78 05/02/18 18:53 Resp 18 05/02/18 18:53 BP 84/46 L 05/02/18 18:53 Pulse Ox 98 05/02/18 18:53 Constitutional: + ill appearing, + thin and + altered mental status; no acute distress Eyes: PERRL, conjunctivae normal, anicteric sclerae Neck: + short neck Respiratory: normal respiratory effort Auscultation: + diminished lung sounds and + crackles (more in right base than right) Cardiovascular: Rate/Rhythm: regular rate and regular rhythm Heart Sounds: normal S1 and normal S2 Gastrointestinal (Abdomen): Inspection/Auscultation: abdomen normal to inspection and normal bowel sounds Percussion/Palpation: abdomen soft Neurologic: awake and + obtunded Speech / Cognition: normal speech Nonverbal secondary to cerebral palsy with severe mental retardation.Almost bedbound Results & Data Laboratory Results Short CBC 05/02/18 Range/Units 17:10 WBC 11.18 H (4.8-10.8) K/uL Hgb 13.2 L (14.0-18.0) g/dL Hct 39.4 L (42-52) % Plt Count 162 (130-400) K/uL BMP 05/02/18 17:10 Sodium 140 Potassium 3.7 Chloride 112 H Carbon Dioxide 20 L BUN 18 Creatinine 0.76 Glucose 123 H Calcium 8.6 Cardiac Enzymes 05/02/18 Range/Units 17:10 Troponin I < 0.015 (0-0.045) ng/ml Liver Function 05/02/18 Range/Units 17:10 Total Bilirubin 0.4 (0.2-1) mg/dl Direct Bilirubin < 0.1 (0-0.2) mg/dl AST 19 (15-37) U/L ALT 22 (12-78) U/L Alkaline Phosphatase 148 H (45-117) U/L Albumin 3.1 L (3.4-5.0) gm/dl Medications Administered Current Inpatient Medications Clonazepam (Klonopin) 1 mg PO Q8H PRN PRN Reason: Anxiety/Agitation Stop: 06/01/18 19:28 Vancomycin HCl 1,250 mg/ (Sodium Chloride) 525 mls @ 200 mls/hr IV NOW ONE Stop: 05/02/18 20:41 Last Admin: 05/02/18 19:00 Dose: 200 mls/hr Piperacillin Sod/Tazobactam Sod (Zosyn) 4.5 gm in 120 mls @ 30 mls/hr IV NOW ONE Stop: 05/02/18 22:03 Last Admin: 05/02/18 18:22 Dose: 30 mls/hr Piperacillin Sod/Tazobactam Sod (Zosyn) 4.5 gm in 120 mls @ 240 mls/hr IV Q6H GIL Stop: 05/09/18 19:29 Potassium Chloride/Sodium Chloride (Normal Saline W/20 Meq Kcl) 20 meq in 1, 000 mls @ 75 mls/hr IV .[id number] GIL Stop: 05/03/18 22:24 Miscellaneous (Patient's Height And/Or Weight Needed) 1 ea N/A Q2H GIL Stop: 06/01/18 19:44 Miscellaneous Information (Consult) 1 ea N/A UD PRN PRN Reason: Consult Stop: 06/01/18 18:03 Miscellaneous Information (Consult) 1 ea N/A UD PRN PRN Reason: Consult Stop: 06/01/18 19:20 Code Status & VTE Plan Code Status DNR VTE Prophylaxis Plan VTE Prophylaxis will be ordered: Yes _ (1) Aspiration pneumonia Aspiration pneumonia type: unspecified Laterality: unspecified laterality Lung location: unspecified part of lung Qualified Code(s): J69.0 - Pneumonitis due to inhalation of food and vomit
[2018-05-02 20:42] LABS: Appearance Urine Clear (Clear); Bacteria Urine Automated Negative (Negative); Bilirubin Urine Negative (Negative); Blood Urine Trace (Negative); Cast Urine Automated 0 /lpf (0-5); Color Urine Dark Yellow; Glucose Urine UA Negative (Negative); Ketones Urine Negative (Negative); Leukocyte Esterase Urine Negative (Negative); Nitrite Urine Negative (Negative); Protein Urine Negative (Negative); Specific Gravity Urine 1.025 (1.000-1.030); Urobilinogen Urine Negative (Negative); pH Urine 8.5 (4.5-7.5)
--- NOTE | 2018-05-02 21:03 | Pharmacy Report ---
Pharmacy Abx Initial Consult - Date of Service May 02, 2018 - Pharmacy Dosing Scope Date of Consult: 05/02/18 Consultation requested by: Dr. Dougherty Pharmacy is consulted to initiate VANCOMYCIN/ZOSYN IV dosing therapy, order appropriate labs and adjust drug dose/frequency. - Subjective The patient is a 52 year old M admitted on 05/02/18. - Objective Height: 5 ft 8 in Weight: 60.5 kg Vital Signs (Past 12hrs): Vital Signs Temp Pulse Pulse Resp BP BP Pulse Ox 05/02/18 20:36 87/40 L 05/02/18 20:15 66 18 75/38 L 94 05/02/18 18:53 78 18 84/46 L 98 05/02/18 17:50 78 18 83/42 L 100 05/02/18 17:44 100 05/02/18 17:30 87 18 94/45 L 98 05/02/18 17:04 100 05/02/18 17:00 37.9 C H 83 18 70/43 L 95 Lab Results (24hrs): Laboratory Tests (24 Hours) 05/02/18 05/02/18 17:10 17:10 WBC 11.18 H Neut # (Auto) 9.54 H Creatinine 0.76 Est Cr Clr Drug Dosing Not Reportable Micro Results: 05/02/18 17:30 Blood Culture - Pending Blood 05/02/18 17:10 Blood Culture - Pending Blood - Risk Factors for Resistance * Resident in a [facility] or extended-care facility - Assessment & Plan Assessment 52 year old M admitted for possible PNA. Height obtained from a October 2017 Admission, CrCl calculated at 98 ml/min. Plan VANCO/ZOSYN for treatment of PNA Vancomycin IV * Estimated PK Parameters: Vd 0.7L/kg, Michele 0.086hr-1, t1/2 8hr * Loading dose: VANCOMYCIN 1250mg (~21 mg/kg) * Maintenance dose: VANCOMYCIN 1000mg IV (~17 mg/kg) every 12 hours * Goal trough level for PNA : 15 to 20 mcg/mL * Trough level ordered for 05/04/18 @ 0600. * I opted for a longer dosing interval with a higher mg/kg dose. Piperacillin/tazobactam * 4.5g bolus administered over 30 minutes, then 3.375g IV extended infusion every 8 hours for CrCl greater than 20 mL/min. Pharmacy will continue to follow and will adjust dose/frequency as necessary. Thank you.
--- NOTE | 2018-05-02 21:07 | Emergency Department Note ---
Entered by Yoselin Moffett acting as a scribe for History of Present Illness General Chief complaint: Altered Mental Status Time Seen by Provider: 05/02/18 17:00 Source: other (halfway staff) Mode of arrival: EMS Limitations: altered mental status History of Present Illness Provider complaint: fever Onset (ago): hour(s) (earlier today ) Location: head Pain Consistency: + other (episode) Quality: + other (101.7) Associated symptoms: + cough and + other (AMS, unresponsive) Treatments prior to arrival: other (Tylenol) The patient is a 52 year old male who presents to the Emergency Room with complaints of an episode of a fever that occurred earlier today. The group fitness department head reports that the patient has a history of seizures and had 2 episodes earlier today. She states that the patient's temperature was then taken , per protocol, and was 101.7. Per staff, the patient has not been acting baseline since and explains that he usually follows commands but has been unresponsive and drowsy. The staff also notes that the patient is usually hypotensive. Per staff, the patient recently had an ear infection and was prescribed antibiotics. The staff reports that the patient was given Tylenol earlier today. Home Medications Home Medications Medication Instructions Recorded Confirmed Type Fiber-Lax 500 Mg 1,000 mg PO QPM 05/02/18 05/02/18 History Fiber-Lax 500mg 500 mg PO QAM 05/02/18 05/02/18 History calcium carbonate-vitamin D3 1 tab PO BID 05/02/18 05/02/18 History [Calcium 600 + D(3)] cetirizine 10 mg PO DAILY 05/02/18 05/02/18 History cholecalciferol (vitamin D3) 1,000 unit PO BID 05/02/18 05/02/18 History [Vitamin D3] clonazepam 0.5 mg PO TID 05/02/18 05/02/18 History docusate sodium [Stool Softener] 200 mg PO HS 05/02/18 05/02/18 History fluoxetine [Prozac] 40 mg PO DAILY 05/02/18 05/02/18 History ketoconazole [Nizoral] 1 applic TOPICAL 2XWK 05/02/18 05/02/18 History lacosamide [Vimpat] 200 mg PO BID 05/02/18 05/02/18 History lamotrigine 400 mg PO BID 05/02/18 05/02/18 History multivitamin 1 tab PO DAILY 05/02/18 05/02/18 History mupirocin 1 applic TOPICAL BID PRN 05/02/18 05/02/18 History nystatin [Nystop] 1 applic TOPICAL BID PRN 05/02/18 05/02/18 History omeprazole 20 mg PO DAILY 05/02/18 05/02/18 History phenobarbital 32.4 mg PO QAM 05/02/18 05/02/18 History phenobarbital 64.8 mg PO DAILY 05/02/18 05/02/18 History polyethylene glycol 3350 [Miralax] 17 g PO DAILY 05/02/18 05/02/18 History potassium chloride 40 meq PO DAILY 05/02/18 05/02/18 History sennosides-docusate sodium [Stool 2 tab PO BID 05/02/18 05/02/18 History Softener-Laxative] sorbitol 20 ml PO DAILY 05/02/18 05/02/18 History white petrolatum-mineral oil 1 applic TOPICAL BID 05/02/18 05/02/18 History [Hydrocerin (with petrolatum)] zonisamide [Zonegran] 400 mg PO QPM 05/02/18 05/02/18 History Allergies Allergy/AdvReac Type Severity Reaction Status Date / Time acyclovir Allergy Unknown Verified 05/02/18 18:25 benztropine Allergy Unknown Verified 05/02/18 18:25 benzyl alcohol Allergy Unknown . Verified 05/02/18 18:25 cephalexin Allergy Unknown . Verified 05/02/18 18:25 Cephalosporins Allergy Unknown CEPHALEXIN Verified 05/02/18 18:25 erythromycin base Allergy Unknown Verified 05/02/18 18:25 glycopyrrolate Allergy Unknown . Verified 05/02/18 18:25 Macrolide Antibiotics Allergy Unknown . Verified 05/02/18 18:25 neomycin Allergy Unknown unknown Verified 05/02/18 18:25 propantheline Allergy Unknown . Verified 05/02/18 18:25 Mepenzolate Allergy Unknown . Uncoded 05/02/18 18:25 Methscopolamine Allergy Unknown . Uncoded 05/02/18 18:25 Past Med/Surg History Medical History Encephalopathy Recurrent seizures Sepsis (Resolved) Social History Current Living Situation: Other Current Living Situation Comment: Half-Way Other Information That Helps Us Care for You: No Feels Safe at Home: Yes Smoking Status: Unknown if ever smoked Hx Alcohol Use: No Hx Substance Use: No Beliefs That Will Affect Care: None Communication Ability: Impaired Review of Systems Other (HPI and ROS are both limited secondary to altered mental status. ) Physical Exam Vital Signs Vital Signs - 24 hr 05/02/18 17:00 05/02/18 17:04 05/02/18 17:30 Temperature 37.9 C H Temperature Source Rectal Sepsis Recent Fever Within 48 Hours Yes Sepsis New/Unexplained Change in Mental Status Yes Sepsis Action Taken by Nursing No Action Required Pulse Rate 83 Pulse Rate [Apical] 87 Respiratory Rate 18 18 Respiratory Effort / Characteristics Respiratory Depth Respiratory Pattern Blood Pressure 70/43 L Blood Pressure [Left Arm] 94/45 L Blood Pressure Mean 52 Blood Pressure Mean [Left Arm] 61 Pulse Oximetry 95 100 98 Oxygen Delivery Method Room Air Room Air Room Air 05/02/18 17:44 05/02/18 17:50 05/02/18 18:06 Temperature Temperature Source Sepsis Recent Fever Within 48 Hours Sepsis New/Unexplained Change in Mental Status Sepsis Action Taken by Nursing Pulse Rate Pulse Rate [Apical] 78 Respiratory Rate 18 Respiratory Effort / Characteristics Non-Labored Respiratory Depth Normal Respiratory Pattern Regular Blood Pressure Blood Pressure [Left Arm] 83/42 L Blood Pressure Mean Blood Pressure Mean [Left Arm] 55 Pulse Oximetry 100 100 Oxygen Delivery Method Room Air Room Air Room Air 05/02/18 18:53 05/02/18 20:15 05/02/18 20:36 Temperature Temperature Source Sepsis Recent Fever Within 48 Hours Sepsis New/Unexplained Change in Mental Status Sepsis Action Taken by Nursing Pulse Rate Pulse Rate [Apical] 78 66 Respiratory Rate 18 18 Respiratory Effort / Characteristics Respiratory Depth Respiratory Pattern Blood Pressure Blood Pressure [Left Arm] 84/46 L 75/38 L 87/40 L Blood Pressure Mean Blood Pressure Mean [Left Arm] 58 50 55 Pulse Oximetry 98 94 Oxygen Delivery Method Room Air Room Air GENERAL: Opens eyes to light painful stimulus, Chronically ill appearing, drowsy. HENT: Normocephalic, atraumatic. Oropharynx with dry mucous membranes and otherwise unremarkable. EYES: Normal conjunctiva. Sclera non-icteric. No nystagmus. NECK: Supple. No nuchal rigidity. FROM. No JVD. RESPIRATORY: Scattered rhonchi. CARDIAC: Regular rate, normal rhythm. Extremities warm and well perfused. Pulses equal. ABDOMEN: Soft, non-distended. No tenderness to palpation. No rebound or guarding. No masses. RECTAL: Deferred. MUSCULOSKELETAL: Chest examination reveals no tenderness. The back is symmetrical on inspection without obvious abnormality. There is no CVA tenderness to palpation. No joint edema. LOWER EXTREMITIES: Calves are equal size bilaterally and non-tender. No edema. No discoloration. NEURO: No sensory or motor deficits noted. Moving all extremities equally. SKIN: No rash or jaundice noted. Course 1722: Past medical records reviewed. The patient was evaluated in room C5, and a complete history and physical examination were performed. 182: I reviewed the patient's case with Dr. Farhat Pike Hospitalist. He will evaluate the patient for further management but asked to consult Neurology. 184: Neurology was paged. 1846: I reviewed the patient's case with Dr. Antonio Pike Neurology. he states that given the extensive AED the patient is on already, adding an additional one would show no benefit. In addition, given the patients postictal state, we could provide IV Vimpat and decrease Clonodine to 1 mg using ODT versus placing NG tube to administer patients home medications. Administered Medications Piperacillin Sod/Tazobactam Sod (Zosyn) 4.5 gm in 120 mls @ 30 mls/hr IV NOW ONE Stop: 05/02/18 22:03 Last Infusion: 05/02/18 20:32 Dose: 0 mls/hr Admin: 05/02/18 18:22 Dose: 30 mls/hr Discontinued Medications Sodium Chloride (Nss 1000ml) 1,000 mls @ 999 mls/hr IV .Q1H1M GIL Stop: 05/02/18 18:15 Last Infusion: 05/02/18 18:56 Dose: 0 mls/hr Admin: 05/02/18 17:34 Dose: 999 mls/hr Sodium Chloride (Nss 1000ml) 2,000 mls @ 999 mls/hr IV .Q2H1M ONE Stop: 05/02/18 19:34 Last Infusion: 05/02/18 20:32 Dose: 0 mls/hr Admin: 05/02/18 18:22 Dose: 999 mls/hr Vancomycin HCl 1,250 mg/ (Sodium Chloride) 525 mls @ 200 mls/hr IV NOW ONE Stop: 05/02/18 20:41 Last Infusion: 05/02/18 21:06 Dose: 0 mls/hr Admin: 05/02/18 19:00 Dose: 200 mls/hr Lacosamide 200 mg/ Sodium (Chloride) 70 mls @ 140 mls/hr IV NOW ONE Stop: 05/02/18 19:59 Last Infusion: 05/02/18 20:32 Dose: 0 mls/hr Admin: 05/02/18 19:46 Dose: 140 mls/hr Medical Decision Making Differential Diagnosis Differential Diagnosis includes: viral syndrome, otitis, pharyngitis, pneumonia , influenza, meningitis, urinary tract infection, septic arthritis, soft tissue infectious process, intra-abdominal process, sepsis, bacteremia, as well as others were entertained. Medical Records Attestation: I reviewed the patient's medical records. Home Medications Current Medication List: was personally reviewed by me Laboratory Data Attestation: I reviewed the patient's lab results. Result diagrams: 05/02/18 17:10 05/02/18 17:10 Lab Results 05/02/18 05/02/18 05/02/18 Range/Units 17:10 17:10 17:10 WBC 11.18 H (4.8-10.8) K/uL RBC 4.18 L (4.7-6.1) M/uL Hgb 13.2 L (14.0-18.0) g/dL POC Hgb (14.0-18.0) g/dl Hct 39.4 L (42-52) % POC Hct (42-52) % MCV 94.3 (80-100) fL MCH 31.6 (25-34) pg MCHC 33.5 (32-36) g/dL RDW Std Deviation 45.3 (36.4-46.3) fL RDW Coeff of Azar 13.2 (11.5-14.5) % Plt Count 162 (130-400) K/uL MPV 11.3 H (7.4-10.4) fL Immature Gran % (Auto) 0.4 % Neut % (Auto) 85.2 % Lymph % (Auto) 2.8 % [place] % (Auto) 11.4 % Eos % (Auto) 0.1 % Baso % (Auto) 0.1 % Immature Gran # (Auto) 0.04 H (0.00-0.02) K/uL Neut # (Auto) 9.54 H (1.4-6.5) K/uL Lymph # (Auto) 0.31 L (1.2-3.4) K/uL [place] # (Auto) 1.27 H (0.11-0.59) K/uL Eos # (Auto) 0.01 (0-0.5) K/uL Baso # (Auto) 0.01 (0-0.2) K/uL PT 10.6 (9.0-12.0) Seconds INR 1.1 (0.9-1.1) VBG pH (7.36-7.41) VBG pCO2 (38-50) mmHg VBG pO2 mmHg VBG HCO3 mmol/L VBG O2 Saturation % VBG Base Excess mEq/L Barometric Pressure mm/Hg POC Sodium (135-144) mEq/L Sodium 140 (136-145) mmol/L POC Potassium (3.3-5.0) mEq/L Potassium 3.7 (3.5-5.1) mmol/L POC Chloride (101-112) mEq/L Chloride 112 H (98-107) mmol/L Carbon Dioxide 20 L (21-32) mmol/L POC Total CO2 (24-31) mEq/l Anion Gap 8.0 (3-11) POC Anion Gap (16-25) mmol/L POC BUN (7-18) mg/dl BUN 18 (7-18) mg/dl Creatinine 0.76 (0.6-1.4) mg/dl POC Creatinine (0.6-1.3) mg/dl Est Cr Clr Drug Dosing Not Reportable Est GFR ( Amer) 122.4 Est GFR (Non-Af Amer) 105.6 BUN/Creatinine Ratio 23.5 H (10-20) Glucose 123 H (70-99) mg/dl POC Glucose (other) (70-99) mg/dl Lactate (0.4-2.0) mmol/L Calcium 8.6 (8.5-10.1) mg/dl POC Ioniz Calcium Anthony (1.12-1.32) mmol/l Phosphorus 2.5 (2.5-4.9) mg/dl Magnesium 1.7 L (1.8-2.4) mg/dl Total Bilirubin 0.4 (0.2-1) mg/dl Direct Bilirubin < 0.1 (0-0.2) mg/dl AST 19 (15-37) U/L ALT 22 (12-78) U/L Alkaline Phosphatase 148 H (45-117) U/L Ammonia (11-32) umol/L Troponin I < 0.015 (0-0.045) ng/ml Total Protein 6.4 (6.4-8.2) gm/dl Albumin 3.1 L (3.4-5.0) gm/dl Globulin 3.3 (2.5-4.0) gm/dl Albumin/Globulin Ratio 1.0 (0.9-2) Lipase 70 L (73-393) U/L TSH 1.820 (0.300-4.500) uIu/ml Urine Color Urine Appearance (Clear) Urine pH (4.5-7.5) Ur Specific [place] (1.000-1.030) Urine Protein (Negative) Urine Glucose (UA) (Negative) Urine Ketones (Negative) Urine Blood (Negative) Urine Nitrite (Negative) Urine Bilirubin (Negative) Urine Urobilinogen (Negative) Ur Leukocyte Esterase (Negative) Urine WBC (Auto) (0-5) /hpf Urine RBC (Auto) (0-4) /hpf U Hyaline Cast (Auto) (0-5) /lpf U Epithel Cells (Auto) (0-5) /lpf Urine Bacteria (Auto) (Negative) 05/02/18 05/02/18 05/02/18 Range/Units 17:30 17:30 17:30 WBC (4.8-10.8) K/uL RBC (4.7-6.1) M/uL Hgb (14.0-18.0) g/dL POC Hgb (14.0-18.0) g/dl Hct (42-52) % POC Hct (42-52) % MCV (80-100) fL MCH (25-34) pg MCHC (32-36) g/dL RDW Std Deviation (36.4-46.3) fL RDW Coeff of Azar (11.5-14.5) % Plt Count (130-400) K/uL MPV (7.4-10.4) fL Immature Gran % (Auto) % Neut % (Auto) % Lymph % (Auto) % [place] % (Auto) % Eos % (Auto) % Baso % (Auto) % Immature Gran # (Auto) (0.00-0.02) K/uL Neut # (Auto) (1.4-6.5) K/uL Lymph # (Auto) (1.2-3.4) K/uL [place] # (Auto) (0.11-0.59) K/uL Eos # (Auto) (0-0.5) K/uL Baso # (Auto) (0-0.2) K/uL PT (9.0-12.0) Seconds INR (0.9-1.1) VBG pH 7.36 (7.36-7.41) VBG pCO2 40 (38-50) mmHg VBG pO2 41 mmHg VBG HCO3 22 mmol/L VBG O2 Saturation 75.4 % VBG Base Excess -3.0 mEq/L Barometric Pressure 735.2 mm/Hg POC Sodium (135-144) mEq/L Sodium (136-145) mmol/L POC Potassium (3.3-5.0) mEq/L Potassium (3.5-5.1) mmol/L POC Chloride (101-112) mEq/L Chloride (98-107) mmol/L Carbon Dioxide (21-32) mmol/L POC Total CO2 (24-31) mEq/l Anion Gap (3-11) POC Anion Gap (16-25) mmol/L POC BUN (7-18) mg/dl BUN (7-18) mg/dl Creatinine (0.6-1.4) mg/dl POC Creatinine (0.6-1.3) mg/dl Est Cr Clr Drug Dosing Est GFR ( Amer) Est GFR (Non-Af Amer) BUN/Creatinine Ratio (10-20) Glucose (70-99) mg/dl POC Glucose (other) (70-99) mg/dl Lactate 1.3 (0.4-2.0) mmol/L Calcium (8.5-10.1) mg/dl POC Ioniz Calcium Anthony (1.12-1.32) mmol/l Phosphorus (2.5-4.9) mg/dl Magnesium (1.8-2.4) mg/dl Total Bilirubin (0.2-1) mg/dl Direct Bilirubin (0-0.2) mg/dl AST (15-37) U/L ALT (12-78) U/L Alkaline Phosphatase (45-117) U/L Ammonia 31.9 (11-32) umol/L Troponin I (0-0.045) ng/ml Total Protein (6.4-8.2) gm/dl Albumin (3.4-5.0) gm/dl Globulin (2.5-4.0) gm/dl Albumin/Globulin Ratio (0.9-2) Lipase (73-393) U/L TSH (0.300-4.500) uIu/ml Urine Color Urine Appearance (Clear) Urine pH (4.5-7.5) Ur Specific [place] (1.000-1.030) Urine Protein (Negative) Urine Glucose (UA) (Negative) Urine Ketones (Negative) Urine Blood (Negative) Urine Nitrite (Negative) Urine Bilirubin (Negative) Urine Urobilinogen (Negative) Ur Leukocyte Esterase (Negative) Urine WBC (Auto) (0-5) /hpf Urine RBC (Auto) (0-4) /hpf U Hyaline Cast (Auto) (0-5) /lpf U Epithel Cells (Auto) (0-5) /lpf Urine Bacteria (Auto) (Negative) 05/02/18 05/02/18 Range/Units 17:30 20:30 WBC (4.8-10.8) K/uL RBC (4.7-6.1) M/uL Hgb (14.0-18.0) g/dL POC Hgb 12.2 L (14.0-18.0) g/dl Hct (42-52) % POC Hct 36 L (42-52) % MCV (80-100) fL MCH (25-34) pg MCHC (32-36) g/dL RDW Std Deviation (36.4-46.3) fL RDW Coeff of Azar (11.5-14.5) % Plt Count (130-400) K/uL MPV (7.4-10.4) fL Immature Gran % (Auto) % Neut % (Auto) % Lymph % (Auto) % [place] % (Auto) % Eos % (Auto) % Baso % (Auto) % Immature Gran # (Auto) (0.00-0.02) K/uL Neut # (Auto) (1.4-6.5) K/uL Lymph # (Auto) (1.2-3.4) K/uL [place] # (Auto) (0.11-0.59) K/uL Eos # (Auto) (0-0.5) K/uL Baso # (Auto) (0-0.2) K/uL PT (9.0-12.0) Seconds INR (0.9-1.1) VBG pH (7.36-7.41) VBG pCO2 (38-50) mmHg VBG pO2 mmHg VBG HCO3 mmol/L VBG O2 Saturation % VBG Base Excess mEq/L Barometric Pressure mm/Hg POC Sodium 140 (135-144) mEq/L Sodium (136-145) mmol/L POC Potassium 3.6 (3.3-5.0) mEq/L Potassium (3.5-5.1) mmol/L POC Chloride 110 (101-112) mEq/L Chloride (98-107) mmol/L Carbon Dioxide (21-32) mmol/L POC Total CO2 18 L (24-31) mEq/l Anion Gap (3-11) POC Anion Gap 17.0 (16-25) mmol/L POC BUN 17 (7-18) mg/dl BUN (7-18) mg/dl Creatinine (0.6-1.4) mg/dl POC Creatinine 0.6 (0.6-1.3) mg/dl Est Cr Clr Drug Dosing Est GFR ( Amer) Est GFR (Non-Af Amer) BUN/Creatinine Ratio (10-20) Glucose (70-99) mg/dl POC Glucose (other) 120 H (70-99) mg/dl Lactate (0.4-2.0) mmol/L Calcium (8.5-10.1) mg/dl POC Ioniz Calcium [place] 1.07 L (1.12-1.32) mmol/l Phosphorus (2.5-4.9) mg/dl Magnesium (1.8-2.4) mg/dl Total Bilirubin (0.2-1) mg/dl Direct Bilirubin (0-0.2) mg/dl AST (15-37) U/L ALT (12-78) U/L Alkaline Phosphatase (45-117) U/L Ammonia (11-32) umol/L Troponin I (0-0.045) ng/ml Total Protein (6.4-8.2) gm/dl Albumin (3.4-5.0) gm/dl Globulin (2.5-4.0) gm/dl Albumin/Globulin Ratio (0.9-2) Lipase (73-393) U/L TSH (0.300-4.500) uIu/ml Urine Color Dark Yellow Urine Appearance Clear (Clear) Urine pH 8.5 H (4.5-7.5) Ur Specific [place] 1.025 (1.000-1.030) Urine Protein Negative (Negative) Urine Glucose (UA) Negative (Negative) Urine Ketones Negative (Negative) Urine Blood Trace H (Negative) Urine Nitrite Negative (Negative) Urine Bilirubin Negative (Negative) Urine Urobilinogen Negative (Negative) Ur Leukocyte Esterase Negative (Negative) Urine WBC (Auto) 1-5 (0-5) /hpf Urine RBC (Auto) 5-10 H (0-4) /hpf U Hyaline Cast (Auto) 0 (0-5) /lpf U Epithel Cells (Auto) 10-20 H (0-5) /lpf Urine Bacteria (Auto) Negative (Negative) Imaging Data Radiologist's Impression: Radiology results as stated below per my review and the radiologist's interpretation: XR chest 1V portable HISTORY: Cough. Atypical Chest Pain COMPARISON: Chest 10/27/2017. FINDINGS: Rotated study. No pneumothorax. No pleural effusions. Scoliosis persists. Old, healed bilateral rib fractures. The right lung is clear. Small left retrocardiac patchy airspace opacity. IMPRESSION: Small left retrocardiac patchy airspace opacity. This nonspecific and could represent atelectasis or pneumonia. Electronically signed by: Oumar Mendoza M.D. 05/02/2018 5:59 PM ECG Data Attestation: I personally reviewed and interpreted this ECG as follows: Indication: altered mental status Rate (beats per minute): 83 Rhythm: normal sinus Findings: + other (normal axis); no acute ischemic change Blood Pressure Blood Pressure Findings: Low blood pressure Blood Pressure Disposition: further management by hospitalist MDM Narrative The patient is a 52-year-old gentleman with a past medical history of developmental delay, seizure disorder on multiple AEDs who presents emergency department with altered mental status in the setting of having 2 seizures this morning per hpi. History provided by halfway staff member at the bedside who reports the patient had a typical seizure this morning with a second subsequent seizure lasting 30 seconds however this time with a prolonged postictal period with drowsiness and fatigue. They allow the patient to sleep which is what he typically needs after a seizure but did not improve and sounded "crackly". The staff member reports that his typical seizures occur between 2 and 3 times a month and April thus far has been a "quiet month". Otherwise the patient has been in his normal state of health recently without fevers, chills, nausea, vomiting, diarrhea. On arrival the patient is ill- appearing with temp of 37.9 and blood pressure 70s/40s. Patient was fluid responsive with blood pressure improving to's 80s-90s/40s. Additional 1.5cc NS ordered. Chest x-ray with left retrocardiac opacity suspicious for aspiration pneumonia. WBC 11.1. VBG unremarkable. Chemistry without significant acidosis. Troponin negative. EKG unremarkable. UA without evidence of infection. Patient was ordered for blood cultures and treated empirically for aspiration pneumonia and possible early sepsis with Zosyn and vancomycin given fever, leukocytosis and source. Case was discussed with Dr. Dougherty, [facility] hospitalist, who will evaluate the patient for admission. Additionally discussed with [facility] neurology on-call, Dr. Alvarez, on behalf of admitting team, who recommends options for IV Vimpat and increasing his Klonopin ODT while still postictal and unable to tolerate his oral medications versus placing NG tube to administer his oral medications as scheduled. Dr. Dougherty, updated on recommendations. Impression & Plan Aspiration pneumonia, Seizure disorder Critical Care Time I have personally spent greater than 35 minutes of critical care time in the direct management of this patient. This includes bedside care, interpretation of diagnostic studies, and testing, discussion with consultants, patient, and family members, and other required patient management activities. This 35 minutes is in excess of all separately billable procedures. Critical Care Time: Yes Total Critical Care Time: 35 Discharge Plan Visit Data *Final* Discharge Date/Time: 05/02/18 21:03 Chief Complaint: Altered Mental Status Other Complaint: Seizure ED Provider: Franco Garland Discharge Problem: Aspiration pneumonia, Seizure disorder Patient Disposition: Admitted As Inpatient Discharge Instructions Interventions: ED Discharge Assessment Last Done: 05/02/18 21:03 The scribe's documentation has been prepared under my direction and personally reviewed by me in its entirety. I confirm that the note above accurately reflects all work, treatment, procedures, and medical decision making performed by me.
[2018-05-02] MEDS: NSS + 20MEQ KCL 20 MEQ/1,000 ML BAG IV SCH (21:47)
[2018-05-02] MEDS: PIPERACILLIN/TAZOBACTAM 3.375 GM in DEXTROSE 5% 100 ML IV SCH (23:08)
[2018-05-03] MEDS ORDERED: VANCOMYCIN HCL 1,000 MG in SODIUM CHLORIDE 0.9% 250 ML IV SCH (06:00)
[2018-05-03] MEDS: PIPERACILLIN/TAZOBACTAM 3.375 GM in DEXTROSE 5% 100 ML IV SCH ×3 (08:02→23:16)
[2018-05-03] MEDS: NSS + 20MEQ KCL 20 MEQ/1,000 ML BAG IV SCH (10:28)
--- NOTE | 2018-05-03 13:22 | Hospitalist Progress Note ---
Date of Service May 03, 2018 Assessment & Plan (1) Aspiration pneumonia: Following 2 episodes of seizures in AM Left lower lobe IV Vanco and Zosyn were started max 37.9 blood cultures pending MRSA Nasal negative no other foci of infection noted at this time continue Zosyn day 2 (2) Recurrent seizures: Has been on Multiple anti-seizure medications at the ER, given 200 mg IV Lacosamide Neurology consulted will resume patient's usual anticonvulsants today continue investigating possible sources of infection monitor closely (3) Cerebral palsy: Has severe mental retardation Bedbound and wheelchair-bound at baseline (4) Encephalopathy: Likely secondary to Pneumonia and Fever Noted to have more seizure activity with fever as from prior admission monitor DVT Prophylaxis SCDs for now Subjective ff up for breakthrough seizures seen sleeping, drowsy somewhat opens eyes then goes back to sleep not in distress per RN, patient has been sleeping mostly, comfortable no recurrence of seizures no other signs noted Physical Exam 2 Vital Signs (Past 24 Hours): Last Vital Signs Temp 37.7 C H 05/03/18 11:35 Pulse 60 05/03/18 11:35 Resp 18 05/03/18 11:35 BP 111/47 L 05/03/18 11:35 Pulse Ox 94 05/03/18 11:35 Physical Exam: General- sleeping, not in distress Head- atraumatic ENT- oropharynx clear Neck- supple, no JVD, no adenopathy, no thyromegaly Lungs- clear to auscultation bilaterally, no rales/wheezes Heart- normal rate, regular rhythm; no murmur, no gallop, no rub appreciated Abdomen- normal bowel sounds, nondistended, soft, nontender, no masses or hepatosplenomegaly Extremities- no pretibial edema, no calf tenderness; peripheral pulses intact Neuro- patient is very drowsy Skin- warm & dry Results & Data Laboratory Results Laboratory Results - last 24 hr 05/02/18 05/02/18 05/03/18 17:10 20:30 10:26 WBC RBC Hgb Hct MCV MCH MCHC RDW Std Deviation RDW Coeff of Azar Plt Count MPV Immature Gran % (Auto) Neut % (Auto) Lymph % (Auto) [place] % (Auto) Eos % (Auto) Baso % (Auto) Immature Gran # (Auto) Neut # (Auto) Lymph # (Auto) [place] # (Auto) Eos # (Auto) Baso # (Auto) ABG pH ABG pCO2 ABG pO2 ABG HCO3 ABG O2 Saturation ABG Base Excess Jorge Alberto Test Barometric Pressure Oxygen Given Sodium Potassium Chloride Carbon Dioxide Anion Gap BUN Creatinine Est Cr Clr Drug Dosing Est GFR ( Amer) Est GFR (Non-Af Amer) BUN/Creatinine Ratio Glucose Calcium Phosphorus Magnesium Ammonia Urine Color Dark Yellow Urine Appearance Clear Urine pH 8.5 H Ur Specific [place] 1.025 Urine Protein Negative Urine Glucose (UA) Negative Urine Ketones Negative Urine Blood Trace H Urine Nitrite Negative Urine Bilirubin Negative Urine Urobilinogen Negative Ur Leukocyte Esterase Negative Urine WBC (Auto) 1-5 Urine RBC (Auto) 5-10 H U Hyaline Cast (Auto) 0 U Epithel Cells (Auto) 10-20 H Urine Bacteria (Auto) Negative Nasal Screen MRSA (PCR) Negative Zonisamide Cancelled Lamotrigine Cancelled 05/03/18 05/03/18 05/03/18 13:41 13:41 15:24 WBC 8.52 RBC 3.54 L Hgb 11.1 L Hct 33.2 L MCV 93.8 MCH 31.4 MCHC 33.4 RDW Std Deviation 45.2 RDW Coeff of Azar 13.1 Plt Count 116 L MPV 11.1 H Immature Gran % (Auto) 0.1 Neut % (Auto) 75.5 Lymph % (Auto) 15.1 [place] % (Auto) 6.6 Eos % (Auto) 2.6 Baso % (Auto) 0.1 Immature Gran # (Auto) 0.01 Neut # (Auto) 6.43 Lymph # (Auto) 1.29 [place] # (Auto) 0.56 Eos # (Auto) 0.22 Baso # (Auto) 0.01 ABG pH ABG pCO2 ABG pO2 ABG HCO3 ABG O2 Saturation ABG Base Excess Jorge Alberto Test Barometric Pressure Oxygen Given Sodium 138 Potassium 3.4 L Chloride 114 H Carbon Dioxide 20 L Anion Gap 4.0 BUN 12 Creatinine 0.53 L Est Cr Clr Drug Dosing 141.1 Est GFR ( Amer) 142.0 Est GFR (Non-Af Amer) 122.5 BUN/Creatinine Ratio 21.9 H Glucose 75 Calcium 8.0 L Phosphorus 1.9 L Magnesium 1.7 L Ammonia 13.0 Urine Color Urine Appearance Urine pH Ur Specific [place] Urine Protein Urine Glucose (UA) Urine Ketones Urine Blood Urine Nitrite Urine Bilirubin Urine Urobilinogen Ur Leukocyte Esterase Urine WBC (Auto) Urine RBC (Auto) U Hyaline Cast (Auto) U Epithel Cells (Auto) Urine Bacteria (Auto) Nasal Screen MRSA (PCR) Zonisamide Lamotrigine 05/03/18 15:24 WBC RBC Hgb Hct MCV MCH MCHC RDW Std Deviation RDW Coeff of Azar Plt Count MPV Immature Gran % (Auto) Neut % (Auto) Lymph % (Auto) [place] % (Auto) Eos % (Auto) Baso % (Auto) Immature Gran # (Auto) Neut # (Auto) Lymph # (Auto) [place] # (Auto) Eos # (Auto) Baso # (Auto) ABG pH 7.42 ABG pCO2 30 L ABG pO2 76 L ABG HCO3 19 ABG O2 Saturation 95.3 H ABG Base Excess -4.6 Jorge Alberto Test POS Barometric Pressure 733.0 Oxygen Given ROOM AIR Sodium Potassium Chloride Carbon Dioxide Anion Gap BUN Creatinine Est Cr Clr Drug Dosing Est GFR ( Amer) Est GFR (Non-Af Amer) BUN/Creatinine Ratio Glucose Calcium Phosphorus Magnesium Ammonia Urine Color Urine Appearance Urine pH Ur Specific [place] Urine Protein Urine Glucose (UA) Urine Ketones Urine Blood Urine Nitrite Urine Bilirubin Urine Urobilinogen Ur Leukocyte Esterase Urine WBC (Auto) Urine RBC (Auto) U Hyaline Cast (Auto) U Epithel Cells (Auto) Urine Bacteria (Auto) Nasal Screen MRSA (PCR) Zonisamide Lamotrigine _ (1) Aspiration pneumonia Aspiration pneumonia type: unspecified Laterality: unspecified laterality Lung location: unspecified part of lung Qualified Code(s): J69.0 - Pneumonitis due to inhalation of food and vomit
[2018-05-03 13:59] LABS: Basophils # (auto) 0.01 K/uL (0-0.2); Basophils % (auto) 0.1 %; Eosinophils # (auto) 0.22 K/uL (0-0.5); Eosinophils % (auto) 2.6 %; Hematocrit (blood only) 33.2 % (42-52); Hemoglobin 11.1 g/dL (14.0-18.0); Immature Granulocytes # (auto) 0.01 K/uL (0.00-0.02); Immature Granulocytes % (auto) 0.1 %; Lymphocytes # (auto) 1.29 K/uL (1.2-3.4); Lymphocytes % (auto) 15.1 %; Mean Corpuscular Hgb Conc 33.4 g/dL (32-36); Mean Corpuscular Volume 93.8 fL (80-100); Mean Platelet Volume 11.1 fL (7.4-10.4); Monocytes # (auto) 0.56 K/uL (0.11-0.59); Monocytes % (auto) 6.6 %; Neutrophils # (auto) 6.43 K/uL (1.4-6.5); Neutrophils % (auto) 75.5 %; Platelet Count 116 K/uL (130-400); RDW Coefficient of Variation 13.1 % (11.5-14.5); RDW Standard Deviation 45.2 fL (36.4-46.3); Red Blood Count 3.54 M/uL (4.7-6.1); White Blood Count 8.52 K/uL (4.8-10.8)
[2018-05-03 14:17] LABS: BUN Creatinine Ratio 21.9 (10-20); Creatinine Clr Calc Pharmacy 141.1 ml/min; Est GFR (Non-African American) 122.5; Magnesium 1.7 mg/dl (1.8-2.4); Potassium 3.4 mmol/L (3.5-5.1)
[2018-05-03 14:18] LABS: Phosphorus 1.9 mg/dl (2.5-4.9)
[2018-05-03 15:41] LABS: HCO3 ABG 19 mmol/L (19-24); Oxygen Saturation ABG 95.3 % (90-95); PCO2 ABG 30 mmHg (35-46); PO2 ABG 76 mm/Hg (80-95); pH ABG 7.42 (7.35-7.45)
[2018-05-03 15:44] LABS: Allen Test POS (Pos)
--- NOTE | 2018-05-03 17:15 | Neurology Consultation ---
Date of Consultation May 03, 2018 Assessment & Plan (1) Seizure disorder: 1. NGT until he is able to orally take his medications 2. high risk for aspiration pneumonia 4. continue Zonagran 400 mg pm, phenobarb 32.4 mg am 64.8 mg pm, lamictal 400 mg BID, Vimpat 200 mg BID 5. treat possible aspiration pneumonia to culture 6. seizure precautions 7. follow with Dr Mancera as scheduled once discharged Pt seen and examined, 2 genl sz today in setting of fever, dx with aspiration pneumonia. Pt is not yet at baseline. Sleepy, arousable, not following commands , spastic quadraparesis, head NCAT, no sz activity noted. Imp pt with MRCP with intractable sz. Current sz frequency is baseline. Pt is not awake enough to take oral medications and not all of his meds are available IV. I would rec placement of NGT for this evenings medications with resumption of oral meds when more awake. 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 He also had a recorded temp of 101 F. He was less arousable following the seizure as well. In the ER he was noted to have borderline elevation of white count and chest x-ray did show left lower lobe infiltration likely secondary to aspiration. He has had incontinence with the seizure and he has had postictal state as well. He is currently lying in bed in a position but does open his eyes to verbal stimulation. There are no care givers in the room. Allergies Allergy/AdvReac Type Severity Reaction Status Date / Time acyclovir Allergy Unknown Verified 05/02/18 18:25 benztropine Allergy Unknown Verified 05/02/18 18:25 benzyl alcohol Allergy Unknown . Verified 05/02/18 18:25 cephalexin Allergy Unknown . Verified 05/02/18 18:25 Cephalosporins Allergy Unknown CEPHALEXIN Verified 05/02/18 18:25 erythromycin base Allergy Unknown Verified 05/02/18 18:25 glycopyrrolate Allergy Unknown . Verified 05/02/18 18:25 Macrolide Antibiotics Allergy Unknown . Verified 05/02/18 18:25 neomycin Allergy Unknown unknown Verified 05/02/18 18:25 propantheline Allergy Unknown . Verified 05/02/18 18:25 Mepenzolate Allergy Unknown . Uncoded 05/02/18 18:25 Methscopolamine Allergy Unknown . Uncoded 05/02/18 18:25 Home Medications Home Medications Medication Instructions Recorded Confirmed Type Fiber-Lax 500 Mg 1,000 mg PO QPM 05/02/18 05/02/18 History Fiber-Lax 500mg 500 mg PO QAM 05/02/18 05/02/18 History calcium carbonate-vitamin D3 1 tab PO BID 05/02/18 05/02/18 History [Calcium 600 + D(3)] cetirizine 10 mg PO DAILY 05/02/18 05/02/18 History cholecalciferol (vitamin D3) 1,000 unit PO BID 05/02/18 05/02/18 History [Vitamin D3] clonazepam 0.5 mg PO TID 05/02/18 05/02/18 History docusate sodium [Stool Softener] 200 mg PO HS 05/02/18 05/02/18 History fluoxetine [Prozac] 40 mg PO DAILY 05/02/18 05/02/18 History ketoconazole [Nizoral] 1 applic TOPICAL 2XWK 05/02/18 05/02/18 History lacosamide [Vimpat] 200 mg PO BID 05/02/18 05/02/18 History lamotrigine 400 mg PO BID 05/02/18 05/02/18 History multivitamin 1 tab PO DAILY 05/02/18 05/02/18 History mupirocin 1 applic TOPICAL BID PRN 05/02/18 05/02/18 History nystatin [Nystop] 1 applic TOPICAL BID PRN 05/02/18 05/02/18 History omeprazole 20 mg PO DAILY 05/02/18 05/02/18 History phenobarbital 32.4 mg PO QAM 05/02/18 05/02/18 History phenobarbital 64.8 mg PO DAILY 05/02/18 05/02/18 History polyethylene glycol 3350 [Miralax] 17 g PO DAILY 05/02/18 05/02/18 History potassium chloride 40 meq PO DAILY 05/02/18 05/02/18 History sennosides-docusate sodium [Stool 2 tab PO BID 05/02/18 05/02/18 History Softener-Laxative] sorbitol 20 ml PO DAILY 05/02/18 05/02/18 History white petrolatum-mineral oil 1 applic TOPICAL BID 05/02/18 05/02/18 History [Hydrocerin (with petrolatum)] zonisamide [Zonegran] 400 mg PO QPM 05/02/18 05/02/18 History Patient History Medical History Encephalopathy Recurrent seizures Sepsis (Resolved) 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 Social History Current Living Situation: Other Current Living Situation Comment: Snf Other Information That Helps Us Care for You: No Feels Safe at Home: Yes Smoking Status: Unknown if ever smoked Hx Alcohol Use: No Hx Substance Use: No Beliefs That Will Affect Care: None Communication Ability: Unable Physical Exam 2 Vital Signs (Past 24 Hours): Last Vital Signs Temp 37.6 C H 05/03/18 16:05 Pulse 63 05/03/18 16:05 Resp 16 05/03/18 16:05 BP 102/48 L 05/03/18 16:05 Pulse Ox 94 05/03/18 16:05 Gen: alert to voice command with open eyes on command lungs course breath sounds CV RRR spastic UE/LE reflexes brisk up going toes non verbal Results & Data Laboratory Results Abnormal Labs 05/02/18 05/02/18 05/02/18 17:10 17:10 17:30 WBC 11.18 H RBC 4.18 L Hgb 13.2 L POC Hgb 12.2 L Hct 39.4 L POC Hct 36 L Plt Count MPV 11.3 H Immature Gran # (Auto) 0.04 H Neut # (Auto) 9.54 H Lymph # (Auto) 0.31 L [place] # (Auto) 1.27 H ABG pCO2 ABG pO2 ABG O2 Saturation Potassium Chloride 112 H Carbon Dioxide 20 L POC Total CO2 18 L Creatinine BUN/Creatinine Ratio 23.5 H Glucose 123 H POC Glucose (other) 120 H Calcium POC Ioniz Calcium [place] 1.07 L Phosphorus Magnesium 1.7 L Alkaline Phosphatase 148 H Albumin 3.1 L Lipase 70 L Urine pH Urine Blood Urine RBC (Auto) U Epithel Cells (Auto) 05/02/18 05/03/18 05/03/18 20:30 13:41 13:41 WBC RBC 3.54 L Hgb 11.1 L POC Hgb Hct 33.2 L POC Hct Plt Count 116 L MPV 11.1 H Immature Gran # (Auto) Neut # (Auto) Lymph # (Auto) [place] # (Auto) ABG pCO2 ABG pO2 ABG O2 Saturation Potassium 3.4 L Chloride 114 H Carbon Dioxide 20 L POC Total CO2 Creatinine 0.53 L BUN/Creatinine Ratio 21.9 H Glucose POC Glucose (other) Calcium 8.0 L POC Ioniz Calcium [place] Phosphorus 1.9 L Magnesium 1.7 L Alkaline Phosphatase Albumin Lipase Urine pH 8.5 H Urine Blood Trace H Urine RBC (Auto) 5-10 H U Epithel Cells (Auto) 10-20 H 05/03/18 15:24 WBC RBC Hgb POC Hgb Hct POC Hct Plt Count MPV Immature Gran # (Auto) Neut # (Auto) Lymph # (Auto) [place] # (Auto) ABG pCO2 30 L ABG pO2 76 L ABG O2 Saturation 95.3 H Potassium Chloride Carbon Dioxide POC Total CO2 Creatinine BUN/Creatinine Ratio Glucose POC Glucose (other) Calcium POC Ioniz Calcium [place] Phosphorus Magnesium Alkaline Phosphatase Albumin Lipase Urine pH Urine Blood Urine RBC (Auto) U Epithel Cells (Auto) Diagnostic Findings CXR-Small left retrocardiac patchy airspace opacity. This nonspecific and could represent atelectasis or pneumonia.
[2018-05-03] MEDS: lamoTRIgine 100 MG TAB PO SCH ×2 (17:25→21:42)
[2018-05-03] MEDS: FLUOXETINE HCL 20 MG CAP PO SCH (17:25)
[2018-05-03] MEDS: PHENobarbital 32.4 MG TAB PO SCH ×2 (17:25→21:43)
[2018-05-03] MEDS: LACOSAMIDE 50 MG TABLET PO SCH ×2 (17:26→21:43)
[2018-05-03] MEDS: MAGNESIUM SULFATE / D5W 1 GM/100 ML BAG IV SCH ×2 (20:33→21:42)
[2018-05-03] MEDS: D5NSS + 20MEQ KCL 20 MEQ/1,000 ML BAG IV SCH (23:16)
[2018-05-03] MEDS ORDERED: ACETAMINOPHEN 325 MG TAB PO PRN (23:59)
[2018-05-04] MEDS ORDERED: ACETAMINOPHEN 65 ML IV ONE (01:00)
[2018-05-04] MEDS ORDERED: VANCOMYCIN TROUGH ONE (05:30)
[2018-05-04] MEDS: D5NSS + 20MEQ KCL 20 MEQ/1,000 ML BAG IV SCH ×2 (06:02→17:59)
[2018-05-04 06:19] LABS: BUN Creatinine Ratio 12.7 (10-20); Calcium 8.2 mg/dl (8.5-10.1); Creatinine Clr Calc Pharmacy 130.4 ml/min; Est GFR (African American) 139.8; Est GFR (Non-African American) 120.7; Magnesium 2.1 mg/dl (1.8-2.4); Potassium 3.5 mmol/L (3.5-5.1)
[2018-05-04 06:35] LABS: Phosphorus 1.5 mg/dl (2.5-4.9)
[2018-05-04] MEDS ORDERED: POTASSIUM PHOS 3 MMOL/1 ML INFUSION IV STA (07:02)
[2018-05-04] MEDS ORDERED: POTASSIUM PHOSPHATE 21 MMOL in SODIUM CHLORIDE 0.9% 500 ML IV ONE (07:45)
[2018-05-04] MEDS: PIPERACILLIN/TAZOBACTAM 3.375 GM in DEXTROSE 5% 100 ML IV SCH ×2 (08:33→16:30)
[2018-05-04] MEDS: PHENobarbital 32.4 MG TAB PO SCH ×2 (11:19→20:25)
[2018-05-04] MEDS: LACOSAMIDE 50 MG TABLET PO SCH ×2 (11:19→20:14)
[2018-05-04] MEDS: FLUOXETINE HCL 20 MG CAP PO SCH (11:19)
[2018-05-04] MEDS: lamoTRIgine 100 MG TAB PO SCH ×2 (11:20→20:14)
--- NOTE | 2018-05-04 12:25 | Progress Note ---
DATE: 05/04/2018 SUBJECTIVE: Patient had MRCP, intractable seizures, was admitted after 2 seizures because of fever. Fortunately, last evening, the patient was awake enough to take medications by mouth, and an NG tube did not need to be placed. OBJECTIVE: VITAL SIGNS: BP 110/73, 57, 17, 36.8. GENERAL: On today's exam, he is awake, alert, mute, rarely follows commands although will stick his tongue out. HEAD: He is normocephalic and atraumatic. NECK: Supple. NEUROLOGIC: There is no fixed gaze preference. He moves all 4 extremities fairly symmetrically. There is increased tone in all 4 although it is more so in the lower than the uppers. No seizure activity is noted. IMPRESSION: This patient has MRCP, intractable seizure disorder, 2 seizures followed by what I assume to be aspiration pneumonia. Patient has not had any recurrent episodes. As [facility] is non-formulary, I have written an order for the home medications to be used, and I have conveyed to nursing that they should contact the long-term to have them bring in his medications. He will otherwise continue the same doses of Lamictal, phenobarbital, Vimpat. At this point, will sign off. Please contact neurology if there are any further events or question.
--- NOTE | 2018-05-04 16:30 | Hospitalist Progress Note ---
Date of Service May 04, 2018 Assessment & Plan (1) Aspiration pneumonia: Following 2 episodes of seizures in AM Left lower lobe PNA on CXR IV Vanco and Zosyn were started Tmax 38.4 blood cultures pending MRSA Nasal negative no other foci of infection noted at this time continue Zosyn day 3 (2) Recurrent seizures: Has been on Multiple anti-seizure medications at the ER, given 200 mg IV Lacosamide Neurology consulted usual anticonvulsants resumed from fever? presently, only possible source of bacterial infection is Left Lower Lobe PNA may also have a viral infection (3) Cerebral palsy: Has severe mental retardation Bedbound and wheelchair-bound at baseline discussed with caregiver at [facility] patient appears to be returning to baseline (4) Encephalopathy: Likely secondary to Pneumonia and Fever Noted to have more seizure activity with fever as from prior admission resolving DVT Prophylaxis SCDs for now Subjective ff up for breakthrough seizure seen resting in bed, awake smiling waving hands, trying to play with examiner follows simple commands difficult to perform ROS as patient nonverbal no signs of pain, distress, dyspnea per medical staff assistant tmax 38.4 overnight no diarrhea, nausea taking pills with no problems Physical Exam 2 Vital Signs (Past 24 Hours): Last Vital Signs Temp 37.0 C 05/04/18 15:18 Pulse 50 L 05/04/18 15:18 Resp 18 05/04/18 15:18 BP 120/69 05/04/18 15:18 Pulse Ox 95 05/04/18 15:18 Physical Exam: General- awake, alert, not in distress,no accessory muscle use Eyes- anicteric Neck- no JVD Lungs- clear breath sounds bilaterally, no rales/wheezes Heart- normal rate, regular rhythm; no murmurs Abdomen- normal bowel sounds, nondistended, soft, nontender Extremities- no pretibial edema, no calf tenderness Neuro- awake, alert, moves extremities equally follows simple commands Skin- warm & dry Results & Data Laboratory Results Laboratory Results - last 24 hr 05/04/18 05/04/18 05/04/18 05:34 05:34 05:40 WBC 6.68 RBC 3.62 L Hgb 11.3 L Hct 33.4 L MCV 92.3 MCH 31.2 MCHC 33.8 RDW Std Deviation 43.6 RDW Coeff of Azar 12.8 Plt Count 123 L MPV 11.5 H Immature Gran % (Auto) 0.1 Neut % (Auto) 67.0 Lymph % (Auto) 22.3 [place] % (Auto) 9.3 Eos % (Auto) 1.2 Baso % (Auto) 0.1 Immature Gran # (Auto) 0.01 Neut # (Auto) 4.47 Lymph # (Auto) 1.49 [place] # (Auto) 0.62 H Eos # (Auto) 0.08 Baso # (Auto) 0.01 Sodium 138 Potassium 3.5 Chloride 111 H Carbon Dioxide 23 Anion Gap 4.0 BUN 7 D Creatinine 0.55 L Est Cr Clr Drug Dosing 130.4 Est GFR ( Amer) 139.8 Est GFR (Non-Af Amer) 120.7 BUN/Creatinine Ratio 12.7 Glucose 103 H Calcium 8.2 L Phosphorus 1.5 L* Magnesium 2.1 Vancomycin Trough 4.2 _ (1) Aspiration pneumonia Aspiration pneumonia type: unspecified Laterality: unspecified laterality Lung location: unspecified part of lung Qualified Code(s): J69.0 - Pneumonitis due to inhalation of food and vomit
[2018-05-04 16:48] LABS: Basophils # (auto) 0.01 K/uL (0-0.2); Basophils % (auto) 0.1 %; Eosinophils # (auto) 0.08 K/uL (0-0.5); Eosinophils % (auto) 1.2 %; Hematocrit (blood only) 33.4 % (42-52); Hemoglobin 11.3 g/dL (14.0-18.0); Immature Granulocytes # (auto) 0.01 K/uL (0.00-0.02); Immature Granulocytes % (auto) 0.1 %; Lymphocytes # (auto) 1.49 K/uL (1.2-3.4); Lymphocytes % (auto) 22.3 %; Mean Corpuscular Hgb Conc 33.8 g/dL (32-36); Mean Corpuscular Volume 92.3 fL (80-100); Mean Platelet Volume 11.5 fL (7.4-10.4); Monocytes # (auto) 0.62 K/uL (0.11-0.59); Monocytes % (auto) 9.3 %; Neutrophils # (auto) 4.47 K/uL (1.4-6.5); Platelet Count 123 K/uL (130-400); RDW Coefficient of Variation 12.8 % (11.5-14.5); RDW Standard Deviation 43.6 fL (36.4-46.3); Red Blood Count 3.62 M/uL (4.7-6.1); White Blood Count 6.68 K/uL (4.8-10.8)
[2018-05-04] MEDS: POTASSIUM CHLORIDE 20 MEQ TABCR PO SCH (17:59)
[2018-05-04] MEDS: clonazePAM 0.5 MG TAB PO SCH ×2 (18:05→18:07)
[2018-05-04] MEDS: DOCUSATE SODIUM/SENNA 50/8.6MG TAB PO SCH (20:12)
[2018-05-04] MEDS: EUCERIN CR 120 GM JAR TOP SCH (20:13)
[2018-05-04] MEDS: CALCIUM 600MG + VIT D 400 IU TAB PO SCH (20:13)
[2018-05-04] MEDS: DOCUSATE SODIUM 100 MG CAP PO SCH (20:14)
[2018-05-04] MEDS ORDERED: FIBER LAX PO SCH (21:00)
[2018-05-04] MEDS ORDERED: ENOXAPARIN INJ 40 MG/0.4 ML SYR SQ STA (21:16)
[2018-05-05] MEDS: PIPERACILLIN/TAZOBACTAM 3.375 GM in DEXTROSE 5% 100 ML IV SCH ×2 (00:01→08:06)
[2018-05-05 05:56] LABS: Basophils # (auto) 0.01 K/uL (0-0.2); Basophils % (auto) 0.2 %; Eosinophils # (auto) 0.11 K/uL (0-0.5); Eosinophils % (auto) 1.8 %; Hematocrit (blood only) 36.8 % (42-52); Hemoglobin 12.6 g/dL (14.0-18.0); Immature Granulocytes # (auto) 0.02 K/uL (0.00-0.02); Immature Granulocytes % (auto) 0.3 %; Lymphocytes # (auto) 2.14 K/uL (1.2-3.4); Mean Corpuscular Hgb Conc 34.2 g/dL (32-36); Mean Corpuscular Volume 91.8 fL (80-100); Mean Platelet Volume 11.3 fL (7.4-10.4); Monocytes % (auto) 9.8 %; Neutrophils # (auto) 3.24 K/uL (1.4-6.5); Neutrophils % (auto) 52.9 %; Platelet Count 139 K/uL (130-400); RDW Standard Deviation 43.7 fL (36.4-46.3); Red Blood Count 4.01 M/uL (4.7-6.1); White Blood Count 6.12 K/uL (4.8-10.8)
[2018-05-05 06:26] LABS: BUN Creatinine Ratio 4.3 (10-20); Calcium 8.6 mg/dl (8.5-10.1); Creatinine Clr Calc Pharmacy 145.1 ml/min; Est GFR (Non-African American) 122.5; Potassium 3.8 mmol/L (3.5-5.1)
[2018-05-05] MEDS: D5NSS + 20MEQ KCL 20 MEQ/1,000 ML BAG IV SCH ×2 (08:02→23:44)
[2018-05-05] MEDS: LACOSAMIDE 50 MG TABLET PO SCH ×2 (08:07→21:41)
[2018-05-05] MEDS: POLYETHYLENE (MIRALAX) 17 GM PACK PO SCH (08:07)
[2018-05-05] MEDS: FLUOXETINE HCL 20 MG CAP PO SCH (08:08)
[2018-05-05] MEDS: POTASSIUM CHLORIDE 20 MEQ TABCR PO SCH (08:08)
[2018-05-05] MEDS: CALCIUM 600MG + VIT D 400 IU TAB PO SCH ×2 (08:08→21:40)
[2018-05-05] MEDS: lamoTRIgine 100 MG TAB PO SCH ×2 (08:08→21:41)
[2018-05-05] MEDS: EUCERIN CR 120 GM JAR TOP SCH ×2 (08:09→21:43)
[2018-05-05] MEDS: DOCUSATE SODIUM/SENNA 50/8.6MG TAB PO SCH ×2 (08:09→21:40)
[2018-05-05] MEDS: PHENobarbital 32.4 MG TAB PO SCH ×2 (08:11→21:38)
[2018-05-05] MEDS: clonazePAM 0.5 MG TAB PO SCH ×3 (08:13→21:36)
[2018-05-05] MEDS ORDERED: CALCIUM POLYCARBOPHIL 500 MG PO SCH (09:00)
--- NOTE | 2018-05-05 11:29 | Hospitalist Progress Note ---
Date of Service May 05, 2018 Assessment & Plan (1) Aspiration pneumonia: Following 2 episodes of seizures in AM of admission possible Left lower lobe PNA on CXR IV Vanco and Zosyn were started Tmax 38.4 2 days ago blood cultures negative MRSA Nasal negative no other foci of infection noted at this time given Zosyn x 4 days, change to Augmentin x 3 more days to complete 7 days therapy (2) Recurrent seizures: Has been on Multiple anti-seizure medications at the ER, given 200 mg IV Lacosamide Neurology consulted usual anticonvulsants resumed from fever? infection? presently, only possible source of bacterial infection is Left Lower Lobe PNA may also have a viral infection management as noted above no recurrence of seizure since admission (3) Cerebral palsy: Has severe mental retardation Bedbound and wheelchair-bound at baseline discussed with caregiver at long-term patient appears to be returning to baseline (4) Encephalopathy: Likely secondary to Pneumonia and Fever Noted to have more seizure activity with fever during past hospitalizations resolving DVT Prophylaxis Lovenox Disposition anticipate return to long-term tomorrow if patient remains afebrile, medically stable (5) Fall: 05/05/18 s/p fall, slipped from bedside chair no signs of pain/distress no obvious signs of injuries on physical exam will obtain pelvis and b/l hip xrays to r/o fracture one to one obs for now fall precautions Subjective ff up for breakthrough seizure patient slipped on the floor from his chair this morning patient brought back to his bed, smiling, not in distress, no signs of pain RN moved hip and legs to check for pain/grimace- no signs of pain tolerated breakfast and taking his medications with no problems remains afebrile no other signs/symptoms noted no recurrence of seizures since admission Physical Exam 2 Vital Signs (Past 24 Hours): Last Vital Signs Temp 36.9 C 05/05/18 08:00 Pulse 50 L 05/05/18 08:00 Resp 18 05/05/18 08:00 BP 126/74 05/05/18 08:00 Pulse Ox 96 05/05/18 08:00 Physical Exam: General- awake, alert, waves hands, smiling, no effort or accessory muscle use with breathing Eyes- anicteric Neck- no JVD Lungs- clear breath sounds bilaterally no crackles no wheezing Heart- normal rate, regular rhythm; no murmurs Abdomen- normal bowel sounds, nondistended, soft, nontender Extremities- no hematoma/erythema/edema around pelvis/hips/legs no external rotation of lower extremities noted no pretibial edema, no calf tenderness Neuro- alert, awake; no other new focal neurologic deficits Skin- warm & dry Results & Data Laboratory Results Laboratory Results - last 24 hr 05/04/18 05/05/18 05/05/18 05:40 05:37 05:37 WBC 6.68 6.12 RBC 3.62 L 4.01 L Hgb 11.3 L 12.6 L Hct 33.4 L 36.8 L MCV 92.3 91.8 MCH 31.2 31.4 MCHC 33.8 34.2 RDW Std Deviation 43.6 43.7 RDW Coeff of Azar 12.8 13.0 Plt Count 123 L 139 MPV 11.5 H 11.3 H Immature Gran % (Auto) 0.1 0.3 Neut % (Auto) 67.0 52.9 Lymph % (Auto) 22.3 35.0 [place] % (Auto) 9.3 9.8 Eos % (Auto) 1.2 1.8 Baso % (Auto) 0.1 0.2 Immature Gran # (Auto) 0.01 0.02 Neut # (Auto) 4.47 3.24 Lymph # (Auto) 1.49 2.14 [place] # (Auto) 0.62 H 0.60 H Eos # (Auto) 0.08 0.11 Baso # (Auto) 0.01 0.01 Sodium 139 Potassium 3.8 Chloride 110 H Carbon Dioxide 22 Anion Gap 8.0 BUN 2 L D Creatinine 0.53 L Est Cr Clr Drug Dosing 145.1 Est GFR ( Amer) 142.0 Est GFR (Non-Af Amer) 122.5 BUN/Creatinine Ratio 4.3 L Glucose 108 H Calcium 8.6 _ (1) Aspiration pneumonia Aspiration pneumonia type: unspecified Laterality: unspecified laterality Lung location: unspecified part of lung Qualified Code(s): J69.0 - Pneumonitis due to inhalation of food and vomit
[2018-05-05] MEDS: PANTOprazole 40 MG TAB PO SCH (12:23)
--- NOTE | 2018-05-05 12:50 | XRay Report ---
XR hip BI w [id number] CLINICAL HISTORY: r/o fracture, s/p fall. Bilateral hip pain. COMPARISON STUDY: Right hip 09/08/2013. FINDINGS: Internal fixation of an old, right proximal femoral fracture. The hardware is intact. The b ones are osteopenic. No acute fracture or dislocation within the pelvis or hips. Large amount well-fo rmed stool within the rectum. A Husain catheter is noted. IMPRESSION: No acute fracture or dislocation within the pelvis or hips. Electronically signed by: Oumar Mendoza M.D. 05/05/2018 12:49 PM
--- NOTE | 2018-05-05 15:38 | Progress Note ---
DATE: 05/05/2018 SUBJECTIVE: I am seeing Mr. Peoples in followup with seizure. No seizures have been noted. He is now much more awake and alert and back to baseline. PHYSICAL EXAMINATION: GENERAL: While he is mute, he moves all 4s fairly symmetrically with increased tone and some choreoathetosis. There is no fixed gaze preference, and he is awake and alert. VITAL SIGNS: Temperature 36.7, 68, 20, and 118/69. IMPRESSION: MRCP with multiple seizures. Control is at baseline, and the patient is taking medication orally. We will sign off at this time. Patient should keep his routine followup with his doctor.
[2018-05-05] MEDS: AMOXICILLIN/CLAVULANATE 875 MG TAB PO SCH (17:41)
[2018-05-05] MEDS ORDERED: ENOXAPARIN INJ 40 MG/0.4 ML SYR SQ ONE (21:12)
[2018-05-05] MEDS: ZONISAMIDE 100 MG PO SCH (21:39)
[2018-05-05] MEDS: DOCUSATE SODIUM 100 MG CAP PO SCH (21:41)
[2018-05-05] MEDS: ENOXAPARIN INJ 40 MG/0.4 ML SYR SQ SCH (21:42)
[2018-05-06 05:59] LABS: Basophils # (auto) 0.01 K/uL (0-0.2); Basophils % (auto) 0.2 %; Eosinophils # (auto) 0.04 K/uL (0-0.5); Eosinophils % (auto) 0.7 %; Hematocrit (blood only) 34.9 % (42-52); Hemoglobin 11.9 g/dL (14.0-18.0); Immature Granulocytes # (auto) 0.01 K/uL (0.00-0.02); Immature Granulocytes % (auto) 0.2 %; Lymphocytes # (auto) 1.86 K/uL (1.2-3.4); Lymphocytes % (auto) 32.7 %; Mean Corpuscular Hgb Conc 34.1 g/dL (32-36); Mean Corpuscular Volume 91.4 fL (80-100); Mean Platelet Volume 11.4 fL (7.4-10.4); Monocytes # (auto) 0.76 K/uL (0.11-0.59); Monocytes % (auto) 13.4 %; Neutrophils % (auto) 52.8 %; Platelet Count 161 K/uL (130-400); RDW Coefficient of Variation 12.8 % (11.5-14.5); RDW Standard Deviation 43.1 fL (36.4-46.3); Red Blood Count 3.82 M/uL (4.7-6.1); White Blood Count 5.68 K/uL (4.8-10.8)
[2018-05-06 06:19] LABS: BUN Creatinine Ratio 6.4 (10-20); Blood Urea Nitrogen 3 mg/dl (7-18); Calcium 8.6 mg/dl (8.5-10.1); Carbon Dioxide 20 mmol/L (21-32); Chloride 110 mmol/L (98-107); Creatinine Clr Calc Pharmacy 174.7 ml/min; Est GFR (African American) > 150.0; Est GFR (Non-African American) 132.2; Glucose 105 mg/dl (70-99); Potassium 3.7 mmol/L (3.5-5.1); Sodium 137 mmol/L (136-145)
[2018-05-06] MEDS: AMOXICILLIN/CLAVULANATE 875 MG TAB PO SCH ×2 (08:08→17:05)
[2018-05-06] MEDS: CALCIUM 600MG + VIT D 400 IU TAB PO SCH ×2 (08:08→20:27)
[2018-05-06] MEDS: EUCERIN CR 120 GM JAR TOP SCH ×2 (08:09→20:36)
[2018-05-06] MEDS: clonazePAM 0.5 MG TAB PO SCH ×3 (08:10→20:35)
[2018-05-06] MEDS: lamoTRIgine 100 MG TAB PO SCH ×2 (08:10→20:27)
[2018-05-06] MEDS: POTASSIUM CHLORIDE 20 MEQ TABCR PO SCH (08:10)
[2018-05-06] MEDS: POLYETHYLENE (MIRALAX) 17 GM PACK PO SCH (08:11)
[2018-05-06] MEDS: LACOSAMIDE 50 MG TABLET PO SCH ×2 (08:11→21:36)
[2018-05-06] MEDS: DOCUSATE SODIUM/SENNA 50/8.6MG TAB PO SCH ×2 (08:11→20:36)
[2018-05-06] MEDS: PANTOprazole 40 MG TAB PO SCH (08:11)
[2018-05-06] MEDS: FLUOXETINE HCL 20 MG CAP PO SCH (08:12)
[2018-05-06] MEDS: PHENobarbital 32.4 MG TAB PO SCH ×2 (08:15→20:34)
[2018-05-06] MEDS: D5NSS + 20MEQ KCL 20 MEQ/1,000 ML BAG IV SCH (14:14)
[2018-05-06] MEDS: DOCUSATE SODIUM 100 MG CAP PO SCH (20:34)
[2018-05-06] MEDS: ENOXAPARIN INJ 40 MG/0.4 ML SYR SQ SCH (20:35)
[2018-05-06] MEDS: ZONISAMIDE 100 MG PO SCH (20:36)
--- NOTE | 2018-05-06 23:38 | Hospitalist Progress Note ---
Date of Service May 06, 2018 Assessment & Plan (1) Aspiration pneumonia: Following 2 episodes of seizures in AM of admission possible Left lower lobe PNA on CXR IV Vanco and Zosyn were started Tmax 38.4 2 days ago blood cultures negative MRSA Nasal negative no other foci of infection noted at this time given Zosyn x 4 days, change to Augmentin x 3 more days to complete 7 days therapy -- remains afebrile no other foci of infection (2) Recurrent seizures: Has been on Multiple anti-seizure medications at the ER, given 200 mg IV Lacosamide Neurology consulted usual anticonvulsants resumed from fever? infection? presently, only possible source of bacterial infection is Left Lower Lobe PNA may also have a viral infection management as noted above no recurrence of seizure since admission (3) Cerebral palsy: Has severe mental retardation Bedbound and wheelchair-bound at baseline discussed with caregiver at residential patient appears to be returning to baseline (4) Encephalopathy: Likely secondary to Pneumonia and Fever Noted to have more seizure activity with fever during past hospitalizations resolving DVT Prophylaxis Lovenox Disposition anticipate return to residential tomorrow (5) Fall: 05/05/18 s/p fall, slipped from bedside chair no signs of pain/distress no obvious signs of injuries on physical exam will obtain pelvis and b/l hip xrays to r/o fracture one to one obs for now fall precautions Subjective ff up for seizures, fever afebrile comfortable non verbal, back to baseline mental status as per description of staff at [facility] smiling, waving hands, making some sounds no signs of distress eating ok , taking meds no other signs noted by staff Physical Exam 2 Vital Signs (Past 24 Hours): Last Vital Signs Temp 37.4 C 05/06/18 23:26 Pulse 68 05/06/18 23:26 Resp 18 05/06/18 23:26 BP 120/72 05/06/18 23:26 Pulse Ox 94 05/06/18 23:26 Physical Exam: General- alert, not in distress, speaks in sentences with no effort or accessory muscle use Eyes- anicteric Neck- no JVD Lungs- clear breath sounds bilaterally Heart- normal rate, regular rhythm; no murmurs Abdomen- normal bowel sounds, nondistended, soft, nontender Extremities- no pretibial edema, no calf tenderness Neuro- alert, no new gross focal neurologic deficits Skin- warm & dry Results & Data Laboratory Results Laboratory Results - last 24 hr 05/06/18 05/06/18 05:22 05:22 WBC 5.68 RBC 3.82 L Hgb 11.9 L Hct 34.9 L MCV 91.4 MCH 31.2 MCHC 34.1 RDW Std Deviation 43.1 RDW Coeff of Azar 12.8 Plt Count 161 MPV 11.4 H Immature Gran % (Auto) 0.2 Neut % (Auto) 52.8 Lymph % (Auto) 32.7 [place] % (Auto) 13.4 Eos % (Auto) 0.7 Baso % (Auto) 0.2 Immature Gran # (Auto) 0.01 Neut # (Auto) 3.00 Lymph # (Auto) 1.86 [place] # (Auto) 0.76 H Eos # (Auto) 0.04 Baso # (Auto) 0.01 Sodium 137 Potassium 3.7 Chloride 110 H Carbon Dioxide 20 L Anion Gap 7.0 BUN 3 L Creatinine 0.44 L Est Cr Clr Drug Dosing 174.7 Est GFR ( Amer) > 150.0 Est GFR (Non-Af Amer) 132.2 BUN/Creatinine Ratio 6.4 L Glucose 105 H Calcium 8.6 _ (1) Aspiration pneumonia Aspiration pneumonia type: unspecified Laterality: unspecified laterality Lung location: unspecified part of lung Qualified Code(s): J69.0 - Pneumonitis due to inhalation of food and vomit
[2018-05-07 06:37] LABS: BUN Creatinine Ratio 11.5 (10-20); Calcium 8.5 mg/dl (8.5-10.1); Creatinine Clr Calc Pharmacy 142.4 ml/min; Est GFR (African American) 140.9; Est GFR (Non-African American) 121.6; Potassium 3.5 mmol/L (3.5-5.1)
[2018-05-07 06:39] LABS: Basophils # (auto) 0.01 K/uL (0-0.2); Basophils % (auto) 0.2 %; Eosinophils % (auto) 3.8 %; Hematocrit (blood only) 34.3 % (42-52); Hemoglobin 11.8 g/dL (14.0-18.0); Immature Granulocytes # (auto) 0.02 K/uL (0.00-0.02); Immature Granulocytes % (auto) 0.4 %; Lymphocytes # (auto) 2.37 K/uL (1.2-3.4); Lymphocytes % (auto) 45.6 %; Mean Corpuscular Hgb Conc 34.4 g/dL (32-36); Mean Corpuscular Volume 91.5 fL (80-100); Mean Platelet Volume 11.4 fL (7.4-10.4); Monocytes # (auto) 0.57 K/uL (0.11-0.59); Neutrophils # (auto) 2.03 K/uL (1.4-6.5); Platelet Count 160 K/uL (130-400); RDW Coefficient of Variation 12.9 % (11.5-14.5); Red Blood Count 3.75 M/uL (4.7-6.1)
[2018-05-07] MEDS: LACOSAMIDE 50 MG TABLET PO SCH (07:36)
[2018-05-07] MEDS: CALCIUM 600MG + VIT D 400 IU TAB PO SCH (07:36)
[2018-05-07] MEDS: PANTOprazole 40 MG TAB PO SCH (07:36)
[2018-05-07] MEDS: POTASSIUM CHLORIDE 20 MEQ TABCR PO SCH (07:37)
[2018-05-07] MEDS: AMOXICILLIN/CLAVULANATE 875 MG TAB PO SCH (07:37)
[2018-05-07] MEDS: lamoTRIgine 100 MG TAB PO SCH (07:37)
[2018-05-07] MEDS: FLUOXETINE HCL 20 MG CAP PO SCH (07:37)
[2018-05-07] MEDS: EUCERIN CR 120 GM JAR TOP SCH (07:38)
[2018-05-07] MEDS: clonazePAM 0.5 MG TAB PO SCH (08:25)
[2018-05-07] MEDS: PHENobarbital 32.4 MG TAB PO SCH (08:27)
[2018-05-07] MEDS: DOCUSATE SODIUM/SENNA 50/8.6MG TAB PO SCH (08:27)
[2018-05-07] MEDS: POLYETHYLENE (MIRALAX) 17 GM PACK PO SCH (08:28)
--- NOTE | 2018-05-07 09:57 | Hospitalist Progress Note ---
Date of Service May 07, 2018 Assessment & Plan (1) Aspiration pneumonia: Following 2 episodes of seizures in AM of admission possible Left lower lobe PNA on CXR IV Vanco and Zosyn were started Tmax 38.4 2 days ago blood cultures negative MRSA Nasal negative no other foci of infection noted at this time given Zosyn x 4 days, change to Augmentin x 3 more days to complete 7 days therapy -- remains afebrile no other foci of infection - needs to finish 3 more doses of Augmentin monitor for fever (2) Recurrent seizures: Has been on Multiple anti-seizure medications at the ER, given 200 mg IV Lacosamide Neurology consulted Dr. Bailey usual anticonvulsants resumed possible from fever? infection? presently, only possible source of bacterial infection is Left Lower Lobe PNA may also have a viral infection management as noted above no recurrence of seizure since admission resume usual anticonvulsants as per Neuro (3) Cerebral palsy: Has severe mental retardation Bedbound and wheelchair-bound at baseline discussed with caregiver at senior living patient at baseline (4) Encephalopathy: Likely secondary to Pneumonia and Fever Noted to have more seizure activity with fever during past hospitalizations resolved (5) Fall: 05/05/18 s/p fall, slipped from bedside chair no signs of pain/distress no obvious signs of injuries on physical exam pelvis and b/l hip xrays to r/o fracture: no fractures one to one obs ordered fall precautions Disposition return to senior living ff up with PCP 05/10/[address] Morales Subjective ff up for seizures, fever seen having a sponge bath alert, smiling, gestures with his hands not in distress no acute events overnight no signs of distress, cough afebrile no other signs noted patient back to baseline mental status as per description of [facility] staff Physical Exam 2 Vital Signs (Past 24 Hours): Last Vital Signs Temp 35.6 C L 05/07/18 07:00 Pulse 64 05/07/18 07:00 Resp 17 05/07/18 07:00 BP 116/64 05/07/18 07:00 Pulse Ox 97 05/07/18 07:00 Physical Exam: General- alert, breathing with no effort or accessory muscle use Eyes- anicteric Neck- no JVD Lungs- clear breath sounds bilaterally Heart- normal rate, regular rhythm; no murmurs Abdomen- normal bowel sounds, nondistended, soft, nontender Extremities- small hematoma- with greenish ting left upper arm- lateral side- no edema/ erythema/tenderness no pretibial edema, no calf tenderness Neuro- alert, non verbal no new focal neuro deficits Skin- warm & dry Results & Data Laboratory Results Laboratory Results - last 24 hr 05/07/18 05/07/18 05:41 05:41 WBC 5.20 RBC 3.75 L Hgb 11.8 L Hct 34.3 L MCV 91.5 MCH 31.5 MCHC 34.4 RDW Std Deviation 43.0 RDW Coeff of Azar 12.9 Plt Count 160 MPV 11.4 H Immature Gran % (Auto) 0.4 Neut % (Auto) 39.0 Lymph % (Auto) 45.6 [place] % (Auto) 11.0 Eos % (Auto) 3.8 Baso % (Auto) 0.2 Immature Gran # (Auto) 0.02 Neut # (Auto) 2.03 Lymph # (Auto) 2.37 [place] # (Auto) 0.57 Eos # (Auto) 0.20 Baso # (Auto) 0.01 Sodium 139 Potassium 3.5 Chloride 110 H Carbon Dioxide 20 L Anion Gap 9.0 BUN 6 L Creatinine 0.54 L Est Cr Clr Drug Dosing 142.4 Est GFR ( Amer) 140.9 Est GFR (Non-Af Amer) 121.6 BUN/Creatinine Ratio 11.5 Glucose 92 Calcium 8.5 _ (1) Aspiration pneumonia Aspiration pneumonia type: unspecified Laterality: unspecified laterality Lung location: unspecified part of lung Qualified Code(s): J69.0 - Pneumonitis due to inhalation of food and vomit
--- NOTE | 2018-05-07 10:25 | Discharge Summary ---
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 He was also noted to have fever 101 F around 3 or 3:30 PM at the time he was noted to have more change in mental status. He was less arousable following the seizure as well. In the ER he was noted to have borderline elevation of white count and chest x- ray did show left lower lobe infiltration likely secondary to aspiration. He has had incontinence with the seizure and he has had postictal state as well. Did not have any significant distress during examination in the emergency room. Admission Exam Per Admitting Provider Vital Signs (Past 24 Hours): Last Vital Signs Temp 37.9 C H 05/02/18 17:00 Pulse 78 05/02/18 18:53 Resp 18 05/02/18 18:53 BP 84/46 L 05/02/18 18:53 Pulse Ox 98 05/02/18 18:53 Constitutional: + ill appearing, + thin and + altered mental status; no acute distress Eyes: PERRL, conjunctivae normal, anicteric sclerae Neck: + short neck Respiratory: normal respiratory effort Auscultation: + diminished lung sounds and + crackles (more in right base than right) Cardiovascular: Rate/Rhythm: regular rate and regular rhythm Heart Sounds: normal S1 and normal S2 Gastrointestinal (Abdomen): Inspection/Auscultation: abdomen normal to inspection and normal bowel sounds Percussion/Palpation: abdomen soft Neurologic: awake and + obtunded Speech / Cognition: normal speech Nonverbal secondary to cerebral palsy with severe mental retardation.Almost bedbound Principal Diagnosis BREAKTHROUGH SEIZURES, FEVER Discharge Exam Vital Signs (Past 24 Hours): Last Vital Signs Temp 35.6 C L 05/07/18 07:00 Pulse 64 05/07/18 07:00 Resp 17 05/07/18 07:00 BP 116/64 05/07/18 07:00 Pulse Ox 97 05/07/18 07:00 Physical Exam: General- alert, breathing with no effort or accessory muscle use Eyes- anicteric Neck- no JVD Lungs- clear breath sounds bilaterally Heart- normal rate, regular rhythm; no murmurs Abdomen- normal bowel sounds, nondistended, soft, nontender Extremities- small hematoma- with greenish ting left upper arm- lateral side- no edema/ erythema/tenderness no pretibial edema, no calf tenderness Neuro- alert, non verbal no new focal neuro deficits Skin- warm & dry Discharge Data Allergies Allergy/AdvReac Type Severity Reaction Status Date / Time acyclovir Allergy Unknown Unknown Verified 05/04/18 11:19 benztropine Allergy Unknown Unknown Verified 05/04/18 11:19 benzyl alcohol Allergy Unknown . Verified 05/02/18 18:25 cephalexin Allergy Unknown . Verified 05/02/18 18:25 Cephalosporins Allergy Unknown CEPHALEXIN Verified 05/02/18 18:25 erythromycin base Allergy Unknown Unknown Verified 05/04/18 11:19 glycopyrrolate Allergy Unknown . Verified 05/02/18 18:25 Macrolide Antibiotics Allergy Unknown . Verified 05/02/18 18:25 mepenzolate Allergy Unknown Unknown Verified 05/04/18 11:19 neomycin Allergy Unknown unknown Verified 05/02/18 18:25 propantheline Allergy Unknown . Verified 05/02/18 18:25 scopolamine [From Pamine] Allergy Unknown Unknown Verified 05/04/18 11:28 Consultations 05/02/18 18:15 ED Decision to Admit Stat 05/03/18 15:01 Consult Neurology Routine Procedures Performed XR chest 1V portable HISTORY: Cough. Atypical Chest Pain COMPARISON: Chest 10/27/2017. FINDINGS: Rotated study. No pneumothorax. No pleural effusions. Scoliosis persists. Old, healed bilateral rib fractures. The right lung is clear. Small left retrocardiac patchy airspace opacity. IMPRESSION: Small left retrocardiac patchy airspace opacity. This nonspecific and could represent atelectasis or pneumonia. Electronically signed by: Oumar Mendoza M.D. 05/02/2018 5:59 PM XR hip BI w [id number] CLINICAL HISTORY: r/o fracture, s/p fall. Bilateral hip pain. COMPARISON STUDY: Right hip 09/08/2013. FINDINGS: Internal fixation of an old, right proximal femoral fracture. The hardware is intact. The bones are osteopenic. No acute fracture or dislocation within the pelvis or hips. Large amount well-formed stool within the rectum. A Husain catheter is noted. IMPRESSION: No acute fracture or dislocation within the pelvis or hips. Hospital Course (1) Aspiration pneumonia: Following 2 episodes of seizures in AM of admission possible Left lower lobe PNA on CXR IV Vanco and Zosyn were started Tmax 38.4 while admitted blood cultures negative MRSA Nasal negative no other foci of infection noted at this time given Zosyn x 4 days, change to Augmentin x 3 more days to complete 7 days therapy -- remains afebrile no other foci of infection - needs to finish 3 more doses of Augmentin monitor for fever (2) Recurrent seizures: Has been on Multiple anti-seizure medications at the ER, given 200 mg IV Lacosamide Neurology consulted Dr. Bailey usual anticonvulsants resumed possible from fever? infection? presently, only possible source of bacterial infection is Left Lower Lobe PNA may also have a viral infection management as noted above no recurrence of seizure since admission resume usual anticonvulsants as per Neuro (3) Cerebral palsy: Has severe mental retardation Bedbound and wheelchair-bound at baseline discussed with caregiver at long-term patient at baseline (4) Encephalopathy: Likely secondary to Pneumonia and Fever Noted to have more seizure activity with fever during past hospitalizations resolved (5) Fall: 05/05/18 s/p fall, slipped from bedside chair no signs of pain/distress no obvious signs of injuries on physical exam pelvis and b/l hip xrays to r/o fracture: no fractures one to one obs ordered fall precautions Disposition return to long-term ff up with PCP 05/10/[address] Morales Total Time Total Time Spent Total Time Spent (In Minutes): 35 minutes Discharge Plan Discharge Items Patient Disposition: Home - Self-Care Reason For Visit: ASPIRATION PNEUMONIA Discharge Diagnosis: BREAKTHROUGH SEIZURE, LEFT LUNG PNEUMONIA, FEVER Condition: Good Discharge Goals: Diagnostic testing and Therapeutic intervention Activity: As commented below Activity Comment: RESUME ACTIVITY GRADUALLY TOLERATED; FALL PRECAUTIONS Lifting: Wait until after follow-up appointment Bathing Comment: NO BATHING IN THE TUB Non-emergency contact: Primary Care Provider Call non-emergency contact if: you have any medication questions, your symptoms worsen and you have a fever Follow-up/Referrals: Soila Morales DO [Primary Care Provider] - 05/10/18 1:35 pm Diet: Regular Diet Texture: Mechanical soft (ground) Diet Comment: ASPIRATION PRECAUTIONS PLEASE Addtl Provider Instructions: PATIENT HAS 3 MORE DOSES OF AUGMENTIN TO COMPLETE. MONITOR FOR RECURRENCE OF FEVER, INCREASING COUGH, SHORTNESS OF BREATH. FOLLOW UP WITH PRIMARY CARE PHYSICIAN NOTED ABOVE. FOLLOW UP WITH NEUROLOGIST SCHEDULED. RETURN TO ER IMMEDIATELY IF WITH RECURRENCE/WORSENING OF SYMPTOMS. Prescriptions: Continue phenobarbital 64.8 mg tablet 32.4 mg PO QAM RF: 0 phenobarbital 64.8 mg tablet 64.8 mg PO DAILY RF: 0 fluoxetine [Prozac] 40 mg capsule 40 mg PO DAILY RF: 0 lamotrigine 200 mg Tablet 400 mg PO BID RF: 0 polyethylene glycol 3350 [Miralax] 17 gram Powder In Packet 17 g PO DAILY RF: 0 sennosides-docusate sodium [Stool Softener-Laxative] 8.6-50 mg Tablet 2 tab PO BID RF: 0 docusate sodium [Stool Softener] 100 mg Capsule 200 mg PO HS RF: 0 sorbitol 70 % solution 20 ml PO DAILY RF: 0 cholecalciferol (vitamin D3) [Vitamin D3] 1,000 unit Tablet 1,000 unit PO BID RF: 0 omeprazole 20 mg Tablet,Delayed Release (Dr/Ec) 20 mg PO DAILY RF: 0 lacosamide [Vimpat] 200 mg tablet 200 mg PO BID RF: 0 potassium chloride 20 mEq Tablet Extended Release 40 meq PO DAILY RF: 0 Fiber-Lax 500 Mg 1,000 mg PO QPM RF: 0 Fiber-Lax 500mg 500 mg PO QAM RF: 0 multivitamin Tablet 1 tab PO DAILY RF: 0 cetirizine 10 mg Tablet 10 mg PO DAILY RF: 0 clonazepam 0.5 mg Tablet 0.5 mg PO TID RF: 0 zonisamide [Zonegran] 100 mg capsule 400 mg PO QPM RF: 0 calcium carbonate-vitamin D3 [Calcium 600 + D(3)] 600 mg(1,500mg) -400 unit Tablet 1 tab PO BID RF: 0 ketoconazole [Nizoral] 2 % shampoo 1 applic topical 2XWK RF: 0 mupirocin 2 % ointment 1 applic topical BID PRN (Reason: Skin Irritation) RF: 0 nystatin [Nystop] 100,000 unit/gram powder 1 applic topical BID PRN (Reason: REDNESS) RF: 0 white petrolatum-mineral oil [Hydrocerin (with petrolatum)] cream 1 applic topical BID RF: 0 Visit Report Forms: [facility] Portal Stand-Alone Forms: [facility] Discharge Orders: Discharge Order (Routine); Ordered 05/07/18 Ordered By: Petey Soto Admission Data Admit Date/Time: 05/02/18 20:10 Attending Provider: Petey Soto Admit Provider: Kim Dougherty Primary Care Provider: Soila Morales Other Providers: Kim Dougherty ; Nohelia Chan ; Suleiman Mancera ; Nohelia Bailey ; Lucia Ny ; Diego Alvarez ; Mariam Suggs Service: Telemetry Other Interventions: Discharge Summary Assessment (RN) Last Done: 05/07/18 11:08 DC Date/Time DO NOT enter until pt leaves facility: 05/07/18 13:25
[2018-05-07 19:37] LABS: Lamictal(Lamotrigine) 3.2 mcg/mL (4.0-18.0)
== END 2018-05-07 13:25 | disposition home or self-care (01) | DRG 177 ==
LOC: ED 16:52 → 2S 20:10 → 4E 05-05 13:00